=== PATIENT | female | born 1945 | race Caucasian/White ===

== ENCOUNTER → 2017-01-04 | Outpatient (CLI) | payer MEDICARE, OTHER ==
[~2017-01-04] MED LIST: ACET-732; AMIT50TA95 PO; CYCL-208 PO; DULO60CA25 PO; HYDR-7 PO; LEVO150T69 PO; LOSA1TAB56 PO; PANT40TA25 PO; PRAV40TA46 PO; [UNRECOGNIZED DRUG - CODE] PO; [UNRECOGNIZED DRUG - CODE] PO
--- NOTE | 2017-01-04 10:27 | DI ---
Indication: ITS.REASON: C50.111; G63; Z85.3; Z92.21; M54.5 LOW BACK PAIN PROCEDURE: US LIVER (HEPATIC): Encounter: Initial Comparison: None Technique: Grayscale and color Doppler sonographic imaging of the right upper quadrant of the abdomen was performed. Findings: Hepatic parenchyma is homogeneous without evidence for focal mass. The gallbladder is surgically absent. Both the intra and extrahepatic biliary system are of normal caliber with the common duct measuring 2 mm in dimension. Visualized portions of the head and body of the pancreas are unremarkable. The right kidney is present without collecting system dilatation. The right kidney measures 9.4 cm in length. Impression: Unremarkable right upper quadrant sonogram. .
--- NOTE | 2017-01-04 10:29 | DI ---
INDICATION: ITS.REASON: C50.111; G63; Z85.3; Z92.21; M54.5 LOW BACK PAIN PROCEDURE: CHEST 2-VIEWS UPRIGHT (PA \T\ LAT) Encounter: Initial COMPARISON: April 10, 2013 FINDINGS: The lungs are clear without evidence of focal abnormal airspace opacity. There is no pleural effusion or pneumothorax. Right mastectomy with surgical drain projecting over the right chest. The heart size, mediastinal contours and pulmonary vascularity are within normal limits. Degenerative change in the thoracolumbar spine. IMPRESSION: No acute cardiopulmonary disease. .
--- NOTE | 2017-01-04 15:16 | DI ---
Indication: ITS.REASON: C50.111; G63; Z85.3; Z92.21; M54.5 LOW BACK PAIN PROCEDURE: NM BONE SCAN, WHOLE BODY: Encounter: Subsequent Comparison: CT abdomen dated September 17, 2008 Technique: 27.1 mCi of Tc-99m MDP was administered intravenously. Anterior and posterior planar whole-body and spot images were obtained. FINDINGS: The scan demonstrates the expected normal biodistribution for the radiotracer. There is probable degenerative uptake seen in the shoulders, left midfoot and right ankle. There is no abnormal radiotracer uptake to suggest bony metastasis. Photopenic defects from bilateral knee replacements. IMPRESSION: No evidence of metastatic disease to the skeleton. .
== END ==
LOC: IMA 09:30
PROVIDERS: ATTEND Internal Medicine Medical Oncology
DX: C50.111 Malignant neoplasm of central portion of right female breast (principal); G63 Polyneuropathy in diseases classified elsewhere; M54.5 Low back pain; Z85.3 Personal history of malignant neoplasm of breast; Z92.21 Personal history of antineoplastic chemotherapy
CPT/HCPCS: 71020; 76705; 78306; A9503

== ENCOUNTER → 2017-02-23 | Outpatient (CLI) | payer MEDICARE, OTHER | LOC: IMA 10:30 | PROVIDERS: ATTEND Internal Medicine Medical Oncology | DX: M85.88 Other specified disorders of bone density and structure, other site (principal); C50.111 Malignant neoplasm of central portion of right female breast; E28.39 Other primary ovarian failure; E58 Dietary calcium deficiency; N95.8 Other specified menopausal and perimenopausal disorders; Z87.828 Personal history of other (healed) physical injury and trauma; Z90.722 Acquired absence of ovaries, bilateral ==

== ENCOUNTER 2017-04-29 12:40 | Inpatient (IN) ==
--- NOTE | 2017-04-29 13:35 | Emergency Department Report ---
General Adult HPI - General Chief complaint: Altered Mental Status Stated complaint: confussion Time Seen by Provider: 04/29/17 13:25 Source: patient, other (Facility Records) Limitations: no limitations - History of Present Illness HPI narrative: 71-year-old female presents to emergency department with a chief complaint of feeling like she was confused starting yesterday. Patient notes that the confusion has resolved prior to arrival to the emergency Department. Patient denies any pain or discomfort. While in the emergency department patient noted that her heart began to be quickly. Patient had an exacerbation of atrial fibrillation with RVR. Patient was also found to be hypotensive. She does not note any exacerbating or remitting factors. Patient has no other complaints or associated symptoms. Symptoms have been persistent in nature since onset as noted above. - Related Data Home Medications Medication Instructions Recorded Confirmed Duloxetine HCl [Cymbalta] 60 mg PO BID #0 02/03/11 04/29/17 Pregabalin [Lyrica] 300 mg PO BID #0 02/03/11 04/29/17 Pantoprazole Sodium [Protonix] 40 mg PO DAILY #0 08/25/12 04/29/17 Pravastatin Sodium 40 mg PO DAILY #0 08/25/12 04/29/17 Acetaminophen [Acetaminophen Extra 1,000 mg PO Q6H PRN 04/29/17 04/29/17 Strength] Amitriptyline [Elavil] 10 mg PO HS 04/29/17 04/29/17 Apixaban [Eliquis] 5 mg PO BID 04/29/17 04/29/17 Bisoprolol [Zebeta] 2.5 mg PO DAILY 04/29/17 04/29/17 Calcium 600 + D [Caltrate + D] 1 tab PO DAILY 04/29/17 04/29/17 Ergocalciferol (Vitamin D2) 2,000 unit PO DAILY 04/29/17 04/29/17 [Vitamin D2] Hydrocodone/APAP 7.5/325 [[place] 1 - 2 tab PO Q6H PRN 04/29/17 04/29/17 7.5/325] Iron Ps Cmplx/Vit B12/FA 1 cap PO DAILY 04/29/17 04/29/17 [Poly-Iron 150 Forte Capsule] Letrozole [Letrozole] 2.5 mg PO DAILY 04/29/17 04/29/17 Levothyroxine Sodium 125 mcg PO ACB 04/29/17 04/29/17 Lidocaine 1 patch TP DAILY PRN 04/29/17 04/29/17 Losartan/Hctz 50/12.5 [Hyzaar 1 tab PO DAILY 04/29/17 04/29/17 50/12.5] Methocarbamol [Robaxin] 750 mg PO TID PRN 04/29/17 04/29/17 Polyethylene Glycol 3350 [Miralax] 17 gm PO DAILY PRN 04/29/17 04/29/17 Allergies Allergy/AdvReac Type Severity Reaction Status Date / Time oxycodone Allergy Mild Itching Verified 04/29/17 13:41 tramadol Allergy Mild RASH Verified 04/29/17 13:41 adhesive Allergy Unknown Verified 04/29/17 13:41 levofloxacin Allergy Unknown Muscle Verified 04/29/17 13:41 Cramping morphine Allergy Unknown Itching Verified 04/29/17 13:41 Omnicef Allergy Unknown Itching Uncoded 12/11/16 10:26 Review of Systems Constitutional: Denies: fever, chills Eyes: Denies: eye pain, eye discharge, vision change ENT: Denies: ear pain, throat pain Cardiovascular: Denies: chest pain, palpitations Respiratory: Denies: cough, dyspnea Gastrointestinal: Denies: abdominal pain, nausea, vomiting, diarrhea Genitourinary: Denies: urgency, dysuria Musculoskeletal: Denies: back pain, arthralgia Integumentary: Denies: erythema, rash Neurological: Denies: headache, weakness, numbness, paresthesias Psychiatric: Denies: anxiety, depression Endocrine: Denies: fatigue, heat or cold intolerance Hematological/Lymphatic: Denies: easy bleeding, easy bruising Allergic/Immunologic: Denies: facial swelling, urticaria PFSH Patient Stated Medical History Other HEENT Yes: WEARS GLASSES Cardiac Arrhythmia Yes: AFIB Hypertension Yes Clotting Problems Yes: TAKES ELIQUIS Osteoarthritis Yes Blood Transfusions Yes Chemotherapy Yes Surgical History: General appendix, gallbladder, other. Reproductive/ hysterectomy. Joint knee Family History: [place] - Social History Smoking status: Never smoker Substance use type: does not use Alcohol intake frequency: does not drink Physical Exam - Limitations Limitations: no limitations - General General appearance: alert, in no apparent distress - Normal Exams: Head:: Normocephalic without trauma Eyes:: Pupils are PERRLA w/ EOMI, No scleral icterus, irritation, or foreign bodies noted ENMT:: No facial trauma, nasal exudates, pharyngeal erythema, or exudates are noted Dental: No fractured, loose, or missing teeth noted Neck:: Full range of motion, without adenopathy, JVD, bruits or thyromegaly Chest/Respirations:: Clear all canas, with good airflow, and symmetry bilaterally Cardiovascular:: Regular rate and rhythm, without murmur or gallop, Pulses 2+ all extremities, capillary refill, <2 seconds all extremities Abdomen:: Bowel sounds positive, soft, non-tender, non-distended, no hepatosplenomegaly, masses or bruits noted Lymphatic:: No lymphadenopathy, or lymphedema noted Musculoskeletal:: No tenderness, or deformity noted, good range of motion, all extremities Integumentary:: No rashes, hives, or bruising noted, hair and nails, without abnormality Neurological:: Patient is alert, and oriented, cranial nerves, motor/sensory/ cerebellar, exams w/o gross deficits, to observation Psychiatric:: Patient exhibits, appropriate attention, emotion and affect Course Vital Signs Blood Pressure 124/87 04/29/17 12:45 Temperature 99.1 F 04/29/17 16:09 Pulse Rate 98 04/29/17 16:30 Respiratory Rate 17 04/29/17 16:30 Blood Pressure 111/54 04/29/17 16:30 Pulse Oximetry 96 04/29/17 16:30 Medical Decision Making - MDM Narrative Medical decision making narrative: Patient is given 1 L of normal saline intravenously with improvement of symptoms. Patient is given digoxin 0.5 mg IV times one. Patient has improvement of heart rate to approximately 110 bpm. Patient is anticoagulated with Eliquis. Due to the hypotension and rapid heart rate patient is not taken for a CT scan of the head during this time in the emergency department. Patient has returned to baseline mental status and is not confused in the ER. 60 minutes of critical care time was assessed to the patient due to a heart rate greater than 160 bpm. Patient does meet SIRS criteria but no current source of infection is noted. Patient does not currently meet sepsis criteria due to no source being found. Azactam 1 g intravenously was ordered at 1451 when sepsis was considered. She is not able to receive 30 mL/kg of normal saline hydration intravenously. She is a DO NOT RESUSCITATE. She has an unknown ejection fraction. And she would need to receive greater than 4 L of fluid which would put the patient into respiratory failure with no backup such as endo-tracheal intubation. 4 L of normal saline would be detrimental to the patient's health. Patient is admitted to the CCU in improved condition. No further orders from consulting or accepting physicians who are in agreement with the current plan of management. Patient was accepted to the ICU by Dr. Valenzuela. - Differential Diagnosis Afib with RVR, Hypotension, Metabolic, UTI - Lab Data Result diagrams: 04/29/17 12:57 04/29/17 12:57 Lab Results 04/29/17 04/29/17 04/29/17 Range/Units 12:57 12:57 14:27 WBC 12.4 H (4.5-11.0) T/MM3 RBC 4.28 (4.00-5.20) M/MM3 Hgb 13.1 (12-16) GM/DL Hct 39.1 (36-46) % MCV 91.4 (80-100) UM3 MCH 30.6 (26-34) UUG MCHC 33.5 (31-37) GM/DL RDW Std Deviation 51.3 H (36.9-50.2) FL Plt Count 233 (130-400) T/MM3 MPV 11.4 (9.4-12.4) UM3 Immature Gran % (Auto) Not performed Neut % (Auto) Not performed Lymph % (Auto) Not performed [place] % (Auto) Not performed Eos % (Auto) Not performed Baso % (Auto) Not performed Neut # Not performed Lymph # Not performed [place] # Not performed Eos # Not performed Baso # Not performed Abs Immat Gran (auto) Not performed Neutrophils % (Manual) 78.0 H (33-66) % Band Neutrophils % 17.0 H (0-6) % Lymphocytes % (Manual) 4.0 L (23-45) % Monocytes % (Manual) 1.0 (0-9.0) % Neutrophils # (Manual) 9.7 H (1.8-7.7) T/MM3 Band Neutrophils # 2.1 T/MM3 Lymphocytes # (Manual) 0.5 L (1-4.8) T/MM3 Monocytes # (Manual) 0.1 (0-0.8) T/MM3 Toxic Granulation 1+ Anisocytosis 1+ RBC Morph Comment Abnormal Turbidity < 20 (0-20) Sodium 135 (134-144) MEQ/L Potassium 3.4 L (3.6-5) MEQ/L Chloride 95 L (98-107) MEQ/L Carbon Dioxide 28 (22-30) MEQ/L Anion Gap 12 (5-15) MEQ/L BUN 31.0 H (7-17) MG/DL Creatinine 2.1 H (0.7-1.2) MG/DL GFR Calculation 23 BUN/Creatinine Ratio 15 (6-26) RATIO Glucose 153 H (65-110) MG/DL Calculated Osmolality 270 (261-280) MOSM/KG Calcium 9.6 (8.4-10.2) MG/DL Magnesium (1.6-2.3) MG/DL Total Bilirubin 7.40 H (0.20-1.30) MG/DL Icterus Index 4 (0-7) AST 30 (14-36) U/L ALT 27 (9-52) U/L Alkaline Phosphatase 81 (38-126) U/L Troponin I 0.017 (0-0.12) ng/ml Total Protein 6.7 (6.3-8.2) G/DL Albumin 4.2 (3.5-5.0) G/DL Globulin 2.5 (2.4-3.6) G/DL Albumin/Globulin Ratio 1.7 (1.1-2.2) RATIO Plasma Lactate 1.7 (0.6-2.2) MMOL/L Procalcitonin NG/ML TSH (0.47-4.68) MIU/L Specimen Hemolysis < 15 (0-25) 04/29/17 04/29/17 Range/Units 14:27 14:27 WBC (4.5-11.0) T/MM3 RBC (4.00-5.20) M/MM3 Hgb (12-16) GM/DL Hct (36-46) % MCV (80-100) UM3 MCH (26-34) UUG MCHC (31-37) GM/DL RDW Std Deviation (36.9-50.2) FL Plt Count (130-400) T/MM3 MPV (9.4-12.4) UM3 Immature Gran % (Auto) Neut % (Auto) Lymph % (Auto) [place] % (Auto) Eos % (Auto) Baso % (Auto) Neut # Lymph # [place] # Eos # Baso # Abs Immat Gran (auto) Neutrophils % (Manual) (33-66) % Band Neutrophils % (0-6) % Lymphocytes % (Manual) (23-45) % Monocytes % (Manual) (0-9.0) % Neutrophils # (Manual) (1.8-7.7) T/MM3 Band Neutrophils # T/MM3 Lymphocytes # (Manual) (1-4.8) T/MM3 Monocytes # (Manual) (0-0.8) T/MM3 Toxic Granulation Anisocytosis RBC Morph Comment Turbidity (0-20) Sodium (134-144) MEQ/L Potassium (3.6-5) MEQ/L Chloride (98-107) MEQ/L Carbon Dioxide (22-30) MEQ/L Anion Gap (5-15) MEQ/L BUN (7-17) MG/DL Creatinine (0.7-1.2) MG/DL GFR Calculation BUN/Creatinine Ratio (6-26) RATIO Glucose (65-110) MG/DL Calculated Osmolality (261-280) MOSM/KG Calcium (8.4-10.2) MG/DL Magnesium 1.5 L (1.6-2.3) MG/DL Total Bilirubin (0.20-1.30) MG/DL Icterus Index (0-7) AST (14-36) U/L ALT (9-52) U/L Alkaline Phosphatase (38-126) U/L Troponin I (0-0.12) ng/ml Total Protein (6.3-8.2) G/DL Albumin (3.5-5.0) G/DL Globulin (2.4-3.6) G/DL Albumin/Globulin Ratio (1.1-2.2) RATIO Plasma Lactate (0.6-2.2) MMOL/L Procalcitonin 100.30 H* NG/ML TSH 1.53 (0.47-4.68) MIU/L Specimen Hemolysis (0-25) - Radiology Data CXR - Negative. - EKG Data EKG #1 EKG results narrative: Atrial fibrillation with rapid ventricular response. 147 bpm. No STEMI. Critical Care Time Critical Care Time: Yes Total Critical Care Time: 60 Attestation: 60 minutes of critical care time was assessed to the patient due to having a heart rate greater than 160 bpm. Patient required complex medical decision- making, repeated assessments at the bedside, and had potential for decompensation. Patient was admitted to the ICU in improved condition. Disposition Clinical Impression: HYPOTENSION, Atrial fibrillation with RVR Disposition: 02 To [facility] [place] Care Condition: Stable Time of Disposition: 14:30 (Admit. Dr. Roy. ) - Seen By: physician
[2017-04-29] MEDS: SALINE FLUSH 10ml SYRINGE IVF PRN ×3 (13:36→15:10)
[2017-04-29] MEDS ORDERED: DIGOXIN 500 MCG/2 ML INJECTION IVP ONE (13:59)
[2017-04-29] MEDS ORDERED: NS 1,000 ML IV ONE (14:02)
[2017-04-29] MEDS ORDERED: AZTREONAM 1 G in NS 100 ML IV ONE (14:51)
--- NOTE | 2017-04-29 14:54 | XRay Report ---
Indication: AMS PROCEDURE: XR chest 1V: Encounter: Initial Comparison: January 04, 2017 Findings: The lungs are stable in appearance without new focal airspace consolidation. There is no pleural effusion or pneumothorax. The heart size and mediastinal contours are unchanged. Prior right sided surgical drain is been removed. IMPRESSION: Stable appearance of the chest without acute cardiopulmonary disease. .
--- NOTE | 2017-04-29 15:53 | History & Physical Report ---
<RandiGila D - Last Filed: 04/29/17 16:08> History of Present Illness Date: 04/29/17 Chief complaint: confused, fever, sweating HPI: Kyung Morales reports that she began to have subjective fever, confusion, chills, sweating in the evening of 04/29/17. She saw her DrElpidio yesterday for results of a back MRI, but was actually feeling fairly well other than "severe" neck pain x2 days (now resolved). She has not had any recent chemo, but reports having cancer "twice". She states the confusion has resolved and she feels at baseline. No n/v/d, just shaking and weakness. She had dizziness/weakness earlier. No known sick exposures. No dysuria/urinary pain, dark-colored urine, frequency. No rashes, insect bites. No chest pain or palpitations. No dysphagia. States A-fib was discovered in early 2016 and she was started on Eliquis per Dr. Rc Wynne. She was evaluated in the ED, and was found to be in A-fib with RVR and was also hypotensive. She received 1L NS bolus and digoxin 500 mcg IV x1, which slowed her rate from 146 to 110. However, she remained hypotensive. Labs showed a PCT of 100 but normal lactate. WBC was 12.4 with a left shift (17% bands). CXR did not show obvious infiltrate. UA pending. Leung was inserted. She was given aztreonam for abx coverage and was admitted under the hospitalist service to inpatient status for treatment of both A. fib with RVR and severe sepsis. She will also need stabilization for abnormal hemodynamic vital signs. Review of Systems - Constitutional Constitutional: Present: chills, fever(s), lethargy, weakness - Musculoskeletal Musculoskeletal: Present: back pain - Neurological Neurological: Present: confusion, headache(s) - Psychiatric Psychiatric: Present: depression - Hematologic/Lymphatic Hematologic/Lymphatic: Present: easy bleeding, easy bruising PFSH Breast cancer Neuropathy - chemo induced Atrial fibrillation. Dr. Wynne recommends rate control and anticoagulation. Hypertension. Degenerative disc disease lumbar spine. Depression. Fibromyalgia. Hyperlipidemia. Obesity. Osteoarthritis. Osteoporosis. Hypothyroidism. Ulcers Surgical History: left lumpectomy 1999. right radical mastectomy 12/08/16. Colonoscopy 08/30/12. Distal radius fracture 2011. Total knee arthroplasty 2007. Appendectomy 1995. Cholecystectomy 1995. Hysterectomy 1995. Colonoscopy 1994 Family History: Strong FH for breast cancer Mother had breast cancer, diabetes, hypertension, obesity and stroke. Brother with colon cancer. Father had heart disease and hypertension. Sister with ovarian cancer and diabetes - Social History Smoking status: Never smoker Substance use type: does not use Medications Home Medications Medication Instructions Recorded Confirmed Type Duloxetine HCl [Cymbalta] 60 mg PO BID #0 02/03/11 04/29/17 History Pregabalin [Lyrica] 300 mg PO BID #0 02/03/11 04/29/17 History Pantoprazole Sodium [Protonix] 40 mg PO DAILY #0 08/25/12 04/29/17 History Pravastatin Sodium 40 mg PO DAILY #0 08/25/12 04/29/17 History Acetaminophen [Acetaminophen Extra 1,000 mg PO Q6H PRN 04/29/17 04/29/17 History Strength] Amitriptyline [Elavil] 10 mg PO HS 04/29/17 04/29/17 History Apixaban [Eliquis] 5 mg PO BID 04/29/17 04/29/17 History Bisoprolol [Zebeta] 2.5 mg PO DAILY 04/29/17 04/29/17 History Calcium 600 + D [Caltrate + D] 1 tab PO DAILY 04/29/17 04/29/17 History Ergocalciferol (Vitamin D2) 2,000 unit PO DAILY 04/29/17 04/29/17 History [Vitamin D2] Hydrocodone/APAP 7.5/325 [Ashley 1 - 2 tab PO Q6H PRN 04/29/17 04/29/17 History 7.5/325] Iron Ps Cmplx/Vit B12/FA 1 cap PO DAILY 04/29/17 04/29/17 History [Poly-Iron 150 Forte Capsule] Letrozole [Letrozole] 2.5 mg PO DAILY 04/29/17 04/29/17 History Levothyroxine Sodium 125 mcg PO ACB 04/29/17 04/29/17 History Lidocaine 1 patch TP DAILY PRN 04/29/17 04/29/17 History Losartan/Hctz 50/12.5 [Hyzaar 1 tab PO DAILY 04/29/17 04/29/17 History 50/12.5] Methocarbamol [Robaxin] 750 mg PO TID PRN 04/29/17 04/29/17 History Polyethylene Glycol 3350 [Miralax] 17 gm PO DAILY PRN 04/29/17 04/29/17 History Allergies Allergy/AdvReac Type Severity Reaction Status Date / Time oxycodone Allergy Mild Itching Verified 04/29/17 13:41 tramadol Allergy Mild RASH Verified 04/29/17 13:41 adhesive Allergy Unknown Verified 04/29/17 13:41 levofloxacin Allergy Unknown Muscle Verified 04/29/17 13:41 Cramping morphine Allergy Unknown Itching Verified 04/29/17 13:41 Omnicef Allergy Unknown Itching Uncoded 12/11/16 10:26 Exam Vital Signs: Temperature 99.8 F 04/29/17 12:46 Pulse Rate 110 H 04/29/17 14:30 Respiratory Rate 19 04/29/17 14:30 Blood Pressure 92/50 04/29/17 14:30 Pulse Oximetry 94 04/29/17 14:30 Telemetry Rhythm: A-fib with RVR Height: 1.63 m Weight: 136.5 kg - Constitutional Present: no acute distress, well nourished, well developed, obese - Routine HEENT Exam Eye: Present: conjunctival icterus (subtle) ENT: Present: mucous membranes dry - Routine Neck Exam Present: supple. Absent: meningismus - Routine Chest/Breast/Axilla Exam Breast: Present: right mastectomy - Routine Respiratory Exam Present: CTA bilaterally - Routine Abdominal Exam Present: soft, normoactive bowel sounds, non distended, non tender - Routine Extremities Exam Present: no edema, pulses intact - Routine Skin Exam Present: dry, pallor, warm - Routine Neurological Exam Present: alert, oriented X3, CN II-XII intact - Routine Psychiatric Exam Present: normal affect, normal thought process Results - Labs CBC & Chem 7: 04/29/17 12:57 04/29/17 12:57 Assessment and Plan (1) Atrial fibrillation with RVR Current visit: Yes Status: Acute (2) Hypotension Current visit: Yes Status: Acute (3) Severe sepsis Current visit: Yes Status: Acute (4) UTI (urinary tract infection) Current visit: Yes Status: Acute (5) SHELIA (acute kidney injury) Current visit: Yes Status: Acute (6) Hypokalemia Current visit: Yes Status: Acute (7) Hyperbilirubinemia Current visit: Yes Status: Acute (8) Hypomagnesemia Current visit: Yes Status: Acute DVT Prophylaxis: Eliquis GI Prophylaxis: Protonix Resuscitation Status: Do Not Resuscitate Assessment and Plan: Admit to inpatient status under the hospitalist service. Severe sepsis with hypotension -SIRS criteria include leukocytosis, bandemia, tachycardia, tachypnea -Severe sepsis criteria includes hypotension with mean arterial pressure in the 50s to 60s. She received 1 L of IV fluids in the ER. Will continue with normal saline at 150 mL per hour. Systolics in the CCU have improved to greater than 100, with a mean arterial pressure of 75. Hypotension, however, may also be secondary to A. fib with RVR, and not solely a sepsis response. -Aztreonam was given in ED. [facility] records indicate that Omnicef reaction causes itching and a "generalized bad feeling". Continue Aztreonam until cx comes back. -follow results of blood culture; repeat PCT in am -Hold antihypertensives and Robaxin A-fib with RVR -rates improved to 110s with IV digoxin -consult cardiology (Dr. Tolentino) -Echo in November 2016 showed an EF of 60%, mild mitral regurg, mild tricuspid regurg, pulmonic arterial systolic pressure at 35 mmHg. -continue Eliquis -check TSH SHELIA -baseline creatinine is 1.1 per clinic records -IVF; hold nephrotoxic agents -decrease dose of Eliquis to 2.5 mg BID -Aztreonam is dosed at 50% for CrCl of 30 or less (she's at 50) Hypokalemia; hypomagnesemia -replace orally -repeat electrolytes in am Hyperbilirubinemia -Tbili was 7.4 - baseline is 1.6 -LFTs otherwise normal -repeat in am Code status - DNR Hospital Course Summary Disclaimer: The visit summary below is not to be considered part of the above Progress Note. Hospital Course: 04/29/17 16:35 Admit to inpatient status under the hospitalist service. Severe sepsis with hypotension -SIRS criteria include leukocytosis, bandemia, tachycardia, tachypnea -Severe sepsis criteria includes hypotension with mean arterial pressure in the 50s to 60s. She received 1 L of IV fluids in the ER. Will continue with normal saline at 150 mL per hour. Systolics in the CCU have improved to greater than 100, with a mean arterial pressure of 75. Hypotension, however, may also be secondary to A. fib with RVR, and not solely a sepsis response. -Aztreonam was given in ED. [facility] records indicate that Omnicef reaction causes itching and a "generalized bad feeling". Continue Aztreonam until cx comes back. -follow results of blood culture; repeat PCT in am -Hold antihypertensives and Robaxin A-fib with RVR -rates improved to 110s with IV digoxin -consult cardiology (Dr. Tolentino) -Echo in November 2016 showed an EF of 60%, mild mitral regurg, mild tricuspid regurg, pulmonic arterial systolic pressure at 35 mmHg. -continue Eliquis -check TSH SHELIA -baseline creatinine is 1.1 per clinic records -IVF; hold nephrotoxic agents -decrease dose of Eliquis to 2.5 mg BID -Aztreonam is dosed at 50% for CrCl of 30 or less (she's at 50) Hypokalemia; hypomagnesemia -replace orally -repeat electrolytes in am Hyperbilirubinemia -Tbili was 7.4 - baseline is 1.6 -LFTs otherwise normal -repeat in am Code status - DNR <ShawnaDiana S - Last Filed: 04/29/17 17:42> History of Present Illness Date: 04/29/17 [facility] Patient Stated Medical History Other HEENT Yes: WEARS GLASSES Cardiac Arrhythmia Yes: AFIB Hypertension Yes Hx Urinary Tract Infection Yes: CURRENT Clotting Problems Yes: TAKES ELIQUIS Osteoarthritis Yes Anesthesia Reactions NO PROBLEMS Blood Transfusions Yes: NO REACTION Chemotherapy Yes Depression Yes Exam Vital Signs: Temperature 99.1 F 04/29/17 16:09 Pulse Rate 98 04/29/17 16:30 Respiratory Rate 17 04/29/17 16:30 Blood Pressure 111/54 04/29/17 16:30 Pulse Oximetry 96 04/29/17 16:30 Oxygen Delivery Method Nasal Cannula Oxygen Flow Rate 2 Height: 5 ft 4 in Weight: 136.5 kg Results - Labs CBC & Chem 7: 04/29/17 12:57 04/29/17 12:57 Microbiology Results: Microbiology 04/29/17 15:29 Urine, Cath Straight Urine Culture - Preliminary Culture Initiated - Results Pending Assessment and Plan (1) Atrial fibrillation with RVR Current visit: Yes Status: Acute (2) Hypotension Current visit: Yes Status: Acute (3) Severe sepsis Current visit: Yes Status: Acute (4) UTI (urinary tract infection) Current visit: Yes Status: Acute (5) Hypokalemia Current visit: Yes Status: Acute (6) Hyperbilirubinemia Current visit: Yes Status: Acute (7) SHELIA (acute kidney injury) Current visit: Yes Status: Acute (8) Hypomagnesemia Current visit: Yes Status: Acute Assessment and Plan: Patient seen and examined with Lucy Bryan NP. UTI likely etiology of current illness. Will treat with aztreonam until C+S comes back. Hospital Course Summary Disclaimer: The visit summary below is not to be considered part of the above Progress Note.
[2017-04-29] MEDS ORDERED: LIDOCAINE 5% PATCH TOP PRN (15:59)
[2017-04-29] MEDS: NS 1,000 ML IV SCH ×2 (16:19→22:39)
[2017-04-29] MEDS ORDERED: FALL RISK - PHARMACY CONSULT XX PRN (16:35)
--- NOTE | 2017-04-29 16:50 | Cardiology Consult Note ---
History of Present Illness Consult date: 04/29/17 <Bibiana Negrete 04/29/17 17:09> Requesting physician: Diana Matos <Bibiana Negrete 04/29/17 17:09> Consult reason: atrial fibrillation <Bibiana Negrete 04/29/17 17:09> Chief complaint: Confusion <Bibiana Negrete 04/29/17 17:09> History of present illness: Kyung Morales is a 71 year old female with a history of HTN and HLD who sees Dr. Rc Wynne with recently diagnosed A-fib, discovered in early 2017, she was started on Eliquis for stroke prevention and a BB for rate control. She was evaluated in the ED for subjective fever, confusion, chills, and sweating and was found to be in A-fib with RVR and was also hypotensive. She received 1L NS bolus and digoxin 500 mcg IV x1, which slowed her rate from 146 to 110. However, she remained hypotensive. No chest pain or palpitations. She states the confusion has resolved and she feels at baseline. No n/v/d, just shaking and weakness. She had dizziness/weakness earlier. No known sick exposures. She is examined in CCU. She is oriented and is drowsy. She denies chest pain, pressure, palpitations, her heart racing or pounding, or feeling skipped beats. She states she breathing is sometimes shallow but denies SOA. She reports reason for ED visit as confusion which began upon waking this morning. <Bibiana Negrete 04/29/17 17:09> Review of Systems - Constitutional Constitutional: Present: chills, fever(s), lethargy, weakness <Bibiana Negrete 04/29/17 17:09> - EENMT Eyes: Absent: change in vision <Bibiana Negrete 04/29/17 17:09> Balance: Absent: vertigo <Bibiana Negrete 04/29/17 17:09> Mouth/Throat: Absent: sore throat <Bibiana Negrete 04/29/17 17:09> - Cardiovascular Cardiovascular: Absent: chest pain, palpitations, syncope, dyspnea on exertion <Bibiana Negrete 04/29/17 17:09> Rhythm: Present: abnormal rhythm (a fib) <Bibiana Negrete 04/29/17 17:09> Vascular: Present: pedal edema <Bibiana Negrete 04/29/17 17:09> - Respiratory Respiratory: Absent: cough, dyspnea, wheezing <Bibiana Negrete 04/29/17 17:09 > - Gastrointestinal Gastrointestinal: Absent: diarrhea, nausea, vomiting <CadenBibiana Cooper 17:09> - Genitourinary Genitourinary: Absent: dysuria <Bibiana Negrete 04/29/17 17:09> - Musculoskeletal Musculoskeletal: Present: back pain <CadenBibiana Kenneth 04/29/17 17:09> - Integumentary/Breasts Integumentary: Absent: rash <CadenBibiana Cooper 04/29/17 17:09> - Neurological Neurological: Present: confusion, headache(s) <Caden,Amy Kenneth 04/29/17 17:09 > - Psychiatric Psychiatric: Present: depression <CadenBibiana Cooper 04/29/17 17:09> - Hematologic/Lymphatic Hematologic/Lymphatic: Present: easy bleeding, easy bruising <CadenBibiana Kenneth 04/29/17 17:09> PFS Patient Stated Medical History Other HEENT Yes: WEARS GLASSES Cardiac Arrhythmia Yes: AFIB Hypertension Yes Hx Urinary Tract Infection Yes: CURRENT Clotting Problems Yes: TAKES ELIQUIS Osteoarthritis Yes Anesthesia Reactions NO PROBLEMS Blood Transfusions Yes: NO REACTION Chemotherapy Yes Depression Yes <Rusty Tolentino - 05/05/17 11:38> Patient Stated Medical History Other HEENT Yes: WEARS GLASSES Cardiac Arrhythmia Yes: AFIB Hypertension Yes Hx Urinary Tract Infection Yes: CURRENT Clotting Problems Yes: TAKES ELIQUIS Osteoarthritis Yes Anesthesia Reactions NO PROBLEMS Blood Transfusions Yes: NO REACTION Chemotherapy Yes Depression Yes <Caden,Bibiana Cooper 04/29/17 17:09> Surgical History: left lumpectomy 1999. right radical mastectomy 12/08/16. Colonoscopy 08/30/12. Distal radius fracture 2012. Total knee arthroplasty 2007. Appendectomy 1995. Cholecystectomy 1995. Hysterectomy 1995. Colonoscopy 1994 <Bibiana Negrete Kenneth 04/29/17 17:09> - Social History Smoking status: Never smoker <Bibiana Negrete M - 04/29/17 17:09> Medications Home Medications Medication Instructions Recorded Confirmed Type Duloxetine HCl [Cymbalta] 60 mg PO BID #0 02/03/11 05/04/17 History Pregabalin [Lyrica] 300 mg PO BID #0 02/03/11 05/04/17 History Pantoprazole Sodium [Protonix] 40 mg PO DAILY #0 08/25/12 05/04/17 History Pravastatin Sodium 40 mg PO DAILY #0 08/25/12 05/04/17 History Calcium 600 + D [Caltrate + D] 1 tab PO DAILY 04/29/17 05/04/17 History Ergocalciferol (Vitamin D2) 2,000 unit PO DAILY 04/29/17 05/04/17 History [Vitamin D2] Hydrocodone/APAP 7.5/325 [[place] 1 - 2 tab PO Q6H PRN 04/29/17 05/04/17 History 7.5/325] Iron Ps Cmplx/Vit B12/FA 1 cap PO DAILY 04/29/17 05/04/17 History [Poly-Iron 150 Forte Capsule] Levothyroxine Sodium 125 mcg PO ACB 04/29/17 05/04/17 History Lidocaine 1 patch TP DAILY PRN 04/29/17 05/04/17 History Polyethylene Glycol 3350 [Miralax] 17 gm PO DAILY PRN 04/29/17 05/04/17 History <Rusty Tolentino - 05/05/17 11:38> Allergies Allergy/AdvReac Type Severity Reaction Status Date / Time oxycodone Allergy Mild Itching Verified 05/04/17 14:45 tramadol Allergy Mild RASH Verified 05/04/17 14:45 adhesive Allergy Unknown Verified 05/04/17 14:45 levofloxacin Allergy Unknown Muscle Verified 05/04/17 14:45 Cramping morphine Allergy Unknown Itching Verified 05/04/17 14:45 Omnicef Allergy Unknown Itching Uncoded 05/04/17 14:45 <Rusty Tolentino - 05/05/17 11:38> Exam Vital signs: Temperature 97.3 F 05/04/17 07:34 Pulse Rate 84 05/04/17 07:34 Respiratory Rate 16 05/04/17 07:34 Blood Pressure 141/89 H 05/04/17 07:34 Pulse Oximetry 98 05/04/17 07:34 Oxygen Delivery Method Nasal Cannula Oxygen Flow Rate 2 <Rusty Tolentino - 05/05/17 11:38> Temperature 99.1 F 04/29/17 16:09 Pulse Rate 98 04/29/17 16:30 Respiratory Rate 17 04/29/17 16:30 Blood Pressure 111/54 04/29/17 16:30 Pulse Oximetry 96 04/29/17 16:30 Oxygen Delivery Method Nasal Cannula Oxygen Flow Rate 2 <Bibiana Negrete - 04/29/17 17:09> - Constitutional no acute distress, morbidly obese, cooperative <Bibiana Negrete 04/29/17 17: 09> - Routine Neck Exam Absent: JVD, carotid bruit <Bibiana Negrete 04/29/17 18:49> - Routine Chest/Breast/Axilla Exam Chest wall: Absent: tenderness <CadenBibiana Cooper 04/29/17 18:49> - Routine Respiratory Exam Present: CTA bilaterally, diminished air movement. Absent: rales <Bibiana Negrete 04/29/17 18:49> - Routine Cardiovascular Exam Present: no murmur, irregular rhythm. Absent: JVD <Bibiana Negrete 04/29/17 18:49> - Routine Abdominal Exam Present: soft, normoactive bowel sounds <Bibiana Negrete 04/29/17 17:09> - Routine Extremities Exam Absent: no edema <Bibiana Negrete 04/29/17 18:49> - Routine Skin Exam Present: intact <Bibiana Negrete 04/29/17 17:09> - Routine Neurological Exam Present: alert, oriented X3 <Bibiana Negrete 04/29/17 17:09> - Routine Psychiatric Exam Present: normal affect, normal thought process <Bibiana Negrete 04/29/17 17: 09> Results 05/04/17 04:47 05/04/17 04:47 <Nely Tolentinosein - 05/05/17 11:38> Intake and Output 04/29/17 04/29/17 04/29/17 06:59 14:59 22:59 Intake Total 36.667 / 36.667 Output Total 50 / 50 Balance -13.333 / -13.333 Intake: IV 36.667 / 36.667 Azactam 1 G In Normal 36.667 / 36.667 Saline 100 ml @ 100 mls/ hr IV O ONE Rx#:[id number] Output: Urine Amount (Catheter) 50 / 50 Laboratory Results - last 48 hr 04/29/17 04/29/17 04/29/17 12:57 12:57 14:27 WBC 12.4 H RBC 4.28 Hgb 13.1 Hct 39.1 MCV 91.4 MCH 30.6 MCHC 33.5 RDW Std Deviation 51.3 H Plt Count 233 MPV 11.4 Immature Gran % (Auto) Not performed Neut % (Auto) Not performed Lymph % (Auto) Not performed [place] % (Auto) Not performed Eos % (Auto) Not performed Baso % (Auto) Not performed Neut # Not performed Lymph # Not performed [place] # Not performed Eos # Not performed Baso # Not performed Abs Immat Gran (auto) Not performed Neutrophils % (Manual) 78.0 H Band Neutrophils % 17.0 H Lymphocytes % (Manual) 4.0 L Monocytes % (Manual) 1.0 Neutrophils # (Manual) 9.7 H Band Neutrophils # 2.1 Lymphocytes # (Manual) 0.5 L Monocytes # (Manual) 0.1 Toxic Granulation 1+ Anisocytosis 1+ RBC Morph Comment Abnormal Turbidity < 20 Sodium 135 Potassium 3.4 L Chloride 95 L Carbon Dioxide 28 Anion Gap 12 BUN 31.0 H Creatinine 2.1 H GFR Calculation 23 BUN/Creatinine Ratio 15 Glucose 153 H Calculated Osmolality 270 Calcium 9.6 Magnesium Total Bilirubin 7.40 H Icterus Index 4 AST 30 ALT 27 Alkaline Phosphatase 81 Troponin I 0.017 Total Protein 6.7 Albumin 4.2 Globulin 2.5 Albumin/Globulin Ratio 1.7 Plasma Lactate 1.7 Procalcitonin TSH Specimen Hemolysis < 15 Ur Collection Type Urine Color Urine Clarity Urine pH Ur Specific [place] Urine Protein Urine Glucose (UA) Urine Ketones Urine Occult Blood Urine Nitrate Urine Bilirubin Urine Urobilinogen Ur Leukocyte Esterase Urine RBC Urine WBC Urine WBC Clumps Ur Squamous Epith Cells Urine Bacteria Ur Culture Indicated? 04/29/17 04/29/17 04/29/17 14:27 14:27 15:29 WBC RBC Hgb Hct MCV MCH MCHC RDW Std Deviation Plt Count MPV Immature Gran % (Auto) Neut % (Auto) Lymph % (Auto) [place] % (Auto) Eos % (Auto) Baso % (Auto) Neut # Lymph # [place] # Eos # Baso # Abs Immat Gran (auto) Neutrophils % (Manual) Band Neutrophils % Lymphocytes % (Manual) Monocytes % (Manual) Neutrophils # (Manual) Band Neutrophils # Lymphocytes # (Manual) Monocytes # (Manual) Toxic Granulation Anisocytosis RBC Morph Comment Turbidity Sodium Potassium Chloride Carbon Dioxide Anion Gap BUN Creatinine GFR Calculation BUN/Creatinine Ratio Glucose Calculated Osmolality Calcium Magnesium 1.5 L Total Bilirubin Icterus Index AST ALT Alkaline Phosphatase Troponin I Total Protein Albumin Globulin Albumin/Globulin Ratio Plasma Lactate Procalcitonin 100.30 H* TSH 1.53 Specimen Hemolysis Ur Collection Type Urine, catheter Urine Color Yellow Urine Clarity Sl cloudy Urine pH 6.0 Ur Specific [place] 1.015 Urine Protein 2+ A Urine Glucose (UA) Negative Urine Ketones Negative Urine Occult Blood 3+ A Urine Nitrate Negative Urine Bilirubin Negative Urine Urobilinogen 0.2 Ur Leukocyte Esterase 2+ A Urine RBC 30-50 H Urine WBC 20-30 H Urine WBC Clumps Few Ur Squamous Epith Cells 0-5 Urine Bacteria 3+ H Ur Culture Indicated? Cult reflexed &setup <Bibiana Negrete M - 04/29/17 18:49> - Imaging and Cardiology Imaging & Cardiology Narrative: 04/29/17 17:08 Laboratory Results - last 48 hr 04/29/17 04/29/17 04/29/17 12:57 12:57 14:27 WBC 12.4 H RBC 4.28 Hgb 13.1 Hct 39.1 MCV 91.4 MCH 30.6 MCHC 33.5 RDW Std Deviation 51.3 H Plt Count 233 MPV 11.4 Immature Gran % (Auto) Not performed Neut % (Auto) Not performed Lymph % (Auto) Not performed [place] % (Auto) Not performed Eos % (Auto) Not performed Baso % (Auto) Not performed Neut # Not performed Lymph # Not performed [place] # Not performed Eos # Not performed Baso # Not performed Abs Immat Gran (auto) Not performed Neutrophils % (Manual) 78.0 H Band Neutrophils % 17.0 H Lymphocytes % (Manual) 4.0 L Monocytes % (Manual) 1.0 Neutrophils # (Manual) 9.7 H Band Neutrophils # 2.1 Lymphocytes # (Manual) 0.5 L Monocytes # (Manual) 0.1 Toxic Granulation 1+ Anisocytosis 1+ RBC Morph Comment Abnormal Turbidity < 20 Sodium 135 Potassium 3.4 L Chloride 95 L Carbon Dioxide 28 Anion Gap 12 BUN 31.0 H Creatinine 2.1 H GFR Calculation 23 BUN/Creatinine Ratio 15 Glucose 153 H Calculated Osmolality 270 Calcium 9.6 Magnesium Total Bilirubin 7.40 H Icterus Index 4 AST 30 ALT 27 Alkaline Phosphatase 81 Troponin I 0.017 Total Protein 6.7 Albumin 4.2 Globulin 2.5 Albumin/Globulin Ratio 1.7 Plasma Lactate 1.7 Procalcitonin TSH Specimen Hemolysis < 15 Ur Collection Type Urine Color Urine Clarity Urine pH Ur Specific [place] Urine Protein Urine Glucose (UA) Urine Ketones Urine Occult Blood Urine Nitrate Urine Bilirubin Urine Urobilinogen Ur Leukocyte Esterase Urine RBC Urine WBC Urine WBC Clumps Ur Squamous Epith Cells Urine Bacteria Ur Culture Indicated? 04/29/17 04/29/17 04/29/17 14:27 14:27 15:29 WBC RBC Hgb Hct MCV MCH MCHC RDW Std Deviation Plt Count MPV Immature Gran % (Auto) Neut % (Auto) Lymph % (Auto) [place] % (Auto) Eos % (Auto) Baso % (Auto) Neut # Lymph # [place] # Eos # Baso # Abs Immat Gran (auto) Neutrophils % (Manual) Band Neutrophils % Lymphocytes % (Manual) Monocytes % (Manual) Neutrophils # (Manual) Band Neutrophils # Lymphocytes # (Manual) Monocytes # (Manual) Toxic Granulation Anisocytosis RBC Morph Comment Turbidity Sodium Potassium Chloride Carbon Dioxide Anion Gap BUN Creatinine GFR Calculation BUN/Creatinine Ratio Glucose Calculated Osmolality Calcium Magnesium 1.5 L Total Bilirubin Icterus Index AST ALT Alkaline Phosphatase Troponin I Total Protein Albumin Globulin Albumin/Globulin Ratio Plasma Lactate Procalcitonin 100.30 H* TSH 1.53 Specimen Hemolysis Ur Collection Type Urine, catheter Urine Color Yellow Urine Clarity Sl cloudy Urine pH 6.0 Ur Specific [place] 1.015 Urine Protein 2+ A Urine Glucose (UA) Negative Urine Ketones Negative Urine Occult Blood 3+ A Urine Nitrate Negative Urine Bilirubin Negative Urine Urobilinogen 0.2 Ur Leukocyte Esterase 2+ A Urine RBC 30-50 H Urine WBC 20-30 H Urine WBC Clumps Few Ur Squamous Epith Cells 0-5 Urine Bacteria 3+ H Ur Culture Indicated? Cult reflexed &setup 04/29/17 18:47 Date of Exam: 04/29/17 Ordering Provider: Schuster,Justin C DO Type of Exam(s): XR chest 1V Reason for Exam(s): AMS Indication: AMS PROCEDURE: XR chest 1V: Encounter: Initial Comparison: January 04, 2017 Findings: The lungs are stable in appearance without new focal airspace consolidation. There is no pleural effusion or pneumothorax. The heart size and mediastinal contours are unchanged. Prior right sided surgical drain is been removed. IMPRESSION: Stable appearance of the chest without acute cardiopulmonary disease. <Bibiana Negrete - 04/29/17 18:49> EKG interpretations - EKG EKG shows: atrial fibrillation (RVR, HR 147) <Bibiana Negrete 04/29/17 17:09> - Blocks, axis, hypertrophy, ST abn Repolarization changes or abnormalities: nonspecific abnormality, ST segment, and/or T wave <Bibiana Negrete - 04/29/17 17:09> Assessment and Plan (1) Atrial fibrillation with RVR Status: Chronic (2) Severe sepsis Status: Resolved (3) Hypokalemia Status: Resolved (4) SHELIA (acute kidney injury) Status: Resolved (5) Hypomagnesemia Status: Resolved <Rusty Tolentino - 05/05/17 11:38> (1) Atrial fibrillation with RVR Status: Resolved Start Metoprolol 25mg BID which should do more for rate control than the BP, Hold Bisoprolol. Echo ordered, report pending. (2) SHELIA (acute kidney injury) Status: Acute (3) Severe sepsis Status: Acute (4) Hypokalemia Status: Resolved (5) Hypomagnesemia Status: Resolved replace Magnesium with 2 grams IV <Bibiana Negrete - 04/30/17 15:26> - Attestation Attestation Narrative: 05/05/17 11:38 Recommendation After examining the patient I agree with the above assessment. I am involved in the formulation of the patient's plan of care. <Rusty Tolentino 05/05/17 11:38> Hospital Course Summary Disclaimer: The visit summary below is not to be considered part of the above Progress Note. <Rusty Tolentino - 05/05/17 11:38> The visit summary below is not to be considered part of the above Progress Note. <Bibiana Negrete - 04/29/17 17:09> Hospital Course: 04/29/17 16:35 Admit to inpatient status under the hospitalist service. Severe sepsis with hypotension -SIRS criteria include leukocytosis, bandemia, tachycardia, tachypnea -Severe sepsis criteria includes hypotension with mean arterial pressure in the 50s to 60s. She received 1 L of IV fluids in the ER. Will continue with normal saline at 150 mL per hour. Systolics in the CCU have improved to greater than 100, with a mean arterial pressure of 75. Hypotension, however, may also be secondary to A. fib with RVR, and not solely a sepsis response. -Aztreonam was given in ED. [facility] records indicate that Omnicef reaction causes itching and a "generalized bad feeling". Continue Aztreonam until cx comes back. -follow results of blood culture; repeat PCT in am -Hold antihypertensives and Robaxin A-fib with RVR -rates improved to 110s with IV digoxin -consult cardiology (Dr. Tolentino) -Echo in November 2016 showed an EF of 60%, mild mitral regurg, mild tricuspid regurg, pulmonic arterial systolic pressure at 35 mmHg. -continue Eliquis -check TSH SHELIA -baseline creatinine is 1.1 per clinic records -IVF; hold nephrotoxic agents -decrease dose of Eliquis to 2.5 mg BID -Aztreonam is dosed at 50% for CrCl of 30 or less (she's at 50) Hypokalemia; hypomagnesemia -replace orally -repeat electrolytes in am Hyperbilirubinemia -Tbili was 7.4 - baseline is 1.6 -LFTs otherwise normal -repeat in am Code status - DNR <Bibiana Negrete - 04/30/17 15:32>
[2017-04-29] MEDS: AZTREONAM 1 G in NS 100 ML IV SCH ×2 (17:10→21:35)
[2017-04-29] MEDS: MAGNESIUM SULFATE 1gm PREMIX 1 GM/100 ML BAG IV SCH ×2 (17:16→18:33)
[2017-04-29] MEDS: MAGNESIUM OXIDE 400 MG TABLET PO SCH (17:18)
[2017-04-29] MEDS: PREGABALIN 150 MG CAPSULE PO SCH (20:17)
[2017-04-29] MEDS: DULOXETINE 60 MG CAPSULE PO SCH (20:17)
[2017-04-29] MEDS: AMITRIPTYLINE 10 MG TABLET PO SCH ×2 (20:18→21:06)
[2017-04-29] MEDS: APIXABAN 5 MG TABLET PO SCH (20:18)
[2017-04-29] MEDS: PRAVASTATIN 40 MG TABLET PO SCH ×2 (20:18→21:06)
[2017-04-29] MEDS ORDERED: APIXABAN 5 MG TABLET PO SCH (21:00)
[2017-04-29 21:49] VITALS: BMI 50.5
[2017-04-29] MEDS ORDERED: METOPROLOL 5mg/5ml INJECTION IVP ONE (22:25)
[2017-04-30] MEDS: NS 1,000 ML IV SCH ×4 (00:10→17:40)
[2017-04-30] MEDS: AZTREONAM 1 G in NS 100 ML IV SCH ×4 (04:56→23:10)
[2017-04-30] MEDS: PANTOPRAZOLE 40 MG TABLET PO SCH (06:19)
[2017-04-30] MEDS: LEVOTHYROXINE 125 MCG TABLET PO SCH (06:19)
[2017-04-30] MEDS: PREGABALIN 150 MG CAPSULE PO SCH ×2 (08:28→21:07)
[2017-04-30] MEDS: DULOXETINE 60 MG CAPSULE PO SCH ×2 (08:29→21:07)
[2017-04-30] MEDS: CALCIUM 600 + VIT D 400 TABLET PO SCH (08:29)
[2017-04-30] MEDS: APIXABAN 5 MG TABLET PO SCH ×2 (08:29→21:07)
[2017-04-30] MEDS: MAGNESIUM OXIDE 400 MG TABLET PO SCH (08:29)
[2017-04-30] MEDS: NIFEREX FORTE 150 CAPSULE PO SCH (08:29)
--- NOTE | 2017-04-30 13:00 | Progress Note ---
Subjective: Feels better today. No events overnight. Blood pressure improved. Cardiology input appreciated. Objective Vital signs: Temperature 97.1 F 04/30/17 08:00 Pulse Rate 96 04/30/17 12:00 Respiratory Rate 39 H 04/30/17 12:00 Blood Pressure 142/65 H 04/30/17 12:00 Pulse Oximetry 93 04/30/17 12:00 Oxygen Delivery Method Room Air Oxygen Flow Rate 2 General-awake alert oriented 3, in no acute distress Cardiovascular-regular rate and rhythm Lungs-clear auscultation bilaterally Abdomen-benign Extremities-no edema cyanosis or clubbing Neurological-nonfocal Weight: 135.2 kg Results - Labs CBC & Chem 7: 04/30/17 05:40 04/30/17 05:40 Microbiology Results: Microbiology 04/29/17 15:29 Urine, Cath Straight Urine Culture - Preliminary Escherichia coli Assessment and Plan (1) Atrial fibrillation with RVR Current visit: Yes Status: Resolved Per cardiology. 04/30/17 13:01 (2) Hypotension Current visit: Yes Status: Resolved Continue volume resuscitation. 04/30/17 13:01 (3) Severe sepsis Current visit: Yes Status: Acute Improving. Secondary to Escherichia coli urinary tract infection and bacteremia. We'll continue with current antibiotics. 04/30/17 13:01 (4) UTI (urinary tract infection) Current visit: Yes Status: Acute Escherichia coli. Continue aztreonam. 04/30/17 13:02 (5) Hypokalemia Current visit: Yes Status: Resolved (6) Hyperbilirubinemia Current visit: Yes Status: Acute Improving. Most likely secondary to volume depletion. We'll continue to monitor. 04/30/17 13:02 (7) SHELIA (acute kidney injury) Current visit: Yes Status: Acute Getting worse. We'll continue to hold nephrotoxic agents. We'll continue volume resuscitation. 04/30/17 13:02 (8) Hypomagnesemia Current visit: Yes Status: Resolved Sepsis Assessment - Evaluation Sepsis screening result: Severe Sepsis Risk Hospital Course Summary Disclaimer: The visit summary below is not to be considered part of the above Progress Note. Hospital Course: 04/29/17 16:35 Admit to inpatient status under the hospitalist service. Severe sepsis with hypotension -SIRS criteria include leukocytosis, bandemia, tachycardia, tachypnea -Severe sepsis criteria includes hypotension with mean arterial pressure in the 50s to 60s. She received 1 L of IV fluids in the ER. Will continue with normal saline at 150 mL per hour. Systolics in the CCU have improved to greater than 100, with a mean arterial pressure of 75. Hypotension, however, may also be secondary to A. fib with RVR, and not solely a sepsis response. -Aztreonam was given in ED. [facility] records indicate that Omnicef reaction causes itching and a "generalized bad feeling". Continue Aztreonam until cx comes back. -follow results of blood culture; repeat PCT in am -Hold antihypertensives and Robaxin A-fib with RVR -rates improved to 110s with IV digoxin -consult cardiology (Dr. Tolentino) -Echo in November 2016 showed an EF of 60%, mild mitral regurg, mild tricuspid regurg, pulmonic arterial systolic pressure at 35 mmHg. -continue Eliquis -check TSH SHELIA -baseline creatinine is 1.1 per clinic records -IVF; hold nephrotoxic agents -decrease dose of Eliquis to 2.5 mg BID -Aztreonam is dosed at 50% for CrCl of 30 or less (she's at 50) Hypokalemia; hypomagnesemia -replace orally -repeat electrolytes in am Hyperbilirubinemia -Tbili was 7.4 - baseline is 1.6 -LFTs otherwise normal -repeat in am Code status - DNR
--- NOTE | 2017-04-30 15:36 | Cardiology Progress Note ---
Subjective Principal diagnosis: Afib RVR <Bibiana Negrete - 04/30/17 15:45> Interval history: Kyung is seen in CCU, she is sitting up in the recliner. She is drowsy but oriented. She denies chest pain or pressure, palpitations or dyspnea. <Bibiana Negrete - 04/30/17 15:45> Exam Vital signs: Temperature 97.3 F 05/04/17 07:34 Pulse Rate 84 05/04/17 07:34 Respiratory Rate 16 05/04/17 07:34 Blood Pressure 141/89 H 05/04/17 07:34 Pulse Oximetry 98 05/04/17 07:34 Oxygen Delivery Method Nasal Cannula Oxygen Flow Rate 2 <Rusty Tolentino - 05/05/17 11:42> Temperature 97.1 F 04/30/17 08:00 Pulse Rate 96 04/30/17 12:00 Respiratory Rate 39 H 04/30/17 12:00 Blood Pressure 142/65 H 04/30/17 12:00 Pulse Oximetry 93 04/30/17 12:00 Oxygen Delivery Method Room Air Oxygen Flow Rate 2 <Bibiana Negrete - 04/30/17 15:45> - Constitutional no acute distress, obese, cooperative <Bibiana Negrete 04/30/17 15:45> - Routine HEENT Exam ENT: Present: mucous membranes moist <Bibiana Negrete 04/30/17 15:45> - Routine Neck Exam Absent: JVD, carotid bruit <Bibiana Negrete 04/30/17 15:45> - Routine Respiratory Exam Present: CTA bilaterally. Absent: rales, wheezes <Bibiana Negrete 04/30/17 15:45> - Routine Cardiovascular Exam Present: no murmur. Absent: irregular rhythm, JVD <Bibiana Negrete 04/30/17 15:45> - Routine Abdominal Exam Present: soft, normoactive bowel sounds <CadenBibiana Kenneth 04/30/17 15:45> - Routine Extremities Exam Present: no edema <CadenBibiana Cooper 04/30/17 15:45> - Routine Skin Exam Present: intact <CadenBibiana Kenneth 04/30/17 15:45> - Routine Neurological Exam Present: alert, oriented X3 <Bibiana Negrete 04/30/17 15:45> - Routine Psychiatric Exam Present: normal affect, normal thought process <Bibiana Negrete 04/30/17 15: 45> - Urinary Catheter Management Straight Cath placed during this visit: no <Rusty Tolentino - 05/05/17 11:42> yes <Bibiana Negrete 05/03/17 10:43> Urethral indwelling: Yes <Bibiana Negrete 05/03/17 10:43> Reason for continuing: Accurate I&O/Aggressive Diuresis <Bibiana Negrete 10:43> Insertion date: 05/03/17 <Bibiana Negrete 05/03/17 10:43> Insertion time: 01:25 <Bibiana Negrete 05/03/17 10:43> Urethral Cath placed during this visit: no <Rusty Tolentino - 05/05/17 11:42> yes <Bibiana Negrete 05/03/17 10:43> Urethral indwelling: Yes <Bibiana Negrete 05/03/17 10:43> Reason for continuing: Accurate I&O/Aggressive Diuresis <Bibiana Negrete 10:43> Insertion date: 04/29/17 <Bibiana Negrete 04/30/17 15:45> Insertion time: 15:20 <Bibiana Negrete 04/30/17 15:45> Hospital Course This is a general summary of the patient's hospital course. For more details refer to the complete medical record. <Rusty Tolentino - 05/05/17 11:42> This is a general summary of the patient's hospital course. For more details refer to the complete medical record. <Bibiana Negrete 04/30/17 15:45> Hospital course: 04/29/17 16:35 Admit to inpatient status under the hospitalist service. Severe sepsis with hypotension -SIRS criteria include leukocytosis, bandemia, tachycardia, tachypnea -Severe sepsis criteria includes hypotension with mean arterial pressure in the 50s to 60s. She received 1 L of IV fluids in the ER. Will continue with normal saline at 150 mL per hour. Systolics in the CCU have improved to greater than 100, with a mean arterial pressure of 75. Hypotension, however, may also be secondary to A. fib with RVR, and not solely a sepsis response. -Aztreonam was given in ED. [facility] records indicate that Omnicef reaction causes itching and a "generalized bad feeling". Continue Aztreonam until cx comes back. -follow results of blood culture; repeat PCT in am -Hold antihypertensives and Robaxin A-fib with RVR -rates improved to 110s with IV digoxin -consult cardiology (Dr. Tolentino) -Echo in November 2016 showed an EF of 60%, mild mitral regurg, mild tricuspid regurg, pulmonic arterial systolic pressure at 35 mmHg. -continue Eliquis -check TSH SHELIA -baseline creatinine is 1.1 per clinic records -IVF; hold nephrotoxic agents -decrease dose of Eliquis to 2.5 mg BID -Aztreonam is dosed at 50% for CrCl of 30 or less (she's at 50) Hypokalemia; hypomagnesemia -replace orally -repeat electrolytes in am Hyperbilirubinemia -Tbili was 7.4 - baseline is 1.6 -LFTs otherwise normal -repeat in am Code status - DNR 04/29/17 Cardiology Afib: Start Metoprolol 25mg BID which should do more for rate control than the BP, Hold Bisoprolol. Echo ordered, report pending. Takes Eliquis 2.5mg for stroke prevention. Hypomagnesemia: replace Magnesium with 2 grams IV 04/30/17 Cardiology Increase Metoprolol to 50mg BID <Bibiana Negrete - 05/03/17 10:43> Progress Note-A&P (1) Atrial fibrillation with RVR Status: Chronic (2) Severe sepsis Status: Resolved (3) Hypokalemia Status: Resolved (4) SHELIA (acute kidney injury) Status: Resolved (5) Hypomagnesemia Status: Resolved <Rusty Tolentino - 05/05/17 11:42> (1) Atrial fibrillation with RVR Status: Chronic Assessment and plan: Rate improved, still over 100 most of the time. Increase Metoprolol to 50mg bid. (2) SHELIA (acute kidney injury) Status: Resolved (3) Severe sepsis Status: Resolved (4) Hypokalemia Status: Resolved (5) Hypomagnesemia Status: Resolved <Bibiana Negrete - 05/03/17 10:42> - Time Spent With Patient Total time spent is greater than 50% in coordination of care (as documented) at patient's floor/unit and/or counseling patient: <Rusty Tolentino - 05/05/17 11:42> Total time spent is greater than 50% in coordination of care (as documented) at patient's floor/unit and/or counseling patient: <Bibiana Negrete - 04/30/17 15:45> less than 15 minutes <Bibiana Negrete 05/03/17 10:43> - Attestation Attestation Narrative: Recommendation After examining the patient I agree with the above assessment. I am involved in the formulation of the patient's plan of care. <Rusty Tolentino - 05/05/17 11:42> Sepsis Assessment - Evaluation Sepsis screening result: No Definite Risk <Bibiana Negrete - 04/30/17 15:45>
[2017-04-30] MEDS: HYDROCODONE/APAP 7.5 MG/325 MG TABLET PO PRN (17:40)
[2017-04-30] MEDS: PRAVASTATIN 40 MG TABLET PO SCH (21:07)
[2017-04-30] MEDS: AMITRIPTYLINE 10 MG TABLET PO SCH (21:10)
[2017-05-01] MEDS: NS 1,000 ML IV SCH ×5 (01:41→22:35)
[2017-05-01] MEDS: AZTREONAM 1 G in NS 100 ML IV SCH ×4 (04:38→23:20)
[2017-05-01] MEDS: PANTOPRAZOLE 40 MG TABLET PO SCH ×2 (05:28→05:31)
[2017-05-01] MEDS: LEVOTHYROXINE 125 MCG TABLET PO SCH ×2 (05:28→05:31)
[2017-05-01] MEDS: ACETAMINOPHEN 500 MG TABLET PO PRN (05:37)
--- NOTE | 2017-05-01 08:34 | Progress Note ---
Subjective: Feeling much better. No events overnight. Denies any chest pain, nausea or vomiting. No fevers overnight. Was fairly rate controlled. Objective Vital signs: Temperature 99.0 F 05/01/17 07:45 Pulse Rate 99 05/01/17 08:01 Respiratory Rate 40 H 05/01/17 08:01 Blood Pressure 152/68 H 05/01/17 08:01 Pulse Oximetry 99 05/01/17 08:01 Oxygen Delivery Method Nasal Cannula Oxygen Flow Rate 1 General-awake alert oriented 3, in no acute distress CV-Irregularly irregular Lungs-clear auscultation bilaterally Abdomen-benign Extremities-no edema cyanosis or clubbing Neurological-nonfocal Weight: 135.2 kg Results - Labs CBC & Chem 7: 05/01/17 05:28 05/01/17 05:28 Microbiology Results: Microbiology 04/29/17 15:29 Urine, Cath Straight Urine Culture - Preliminary Escherichia coli Assessment and Plan (1) Atrial fibrillation with RVR Current visit: Yes Status: Resolved Per cardiology. Continue beta sola and eliquis. (2) Hypotension Current visit: Yes Status: Resolved Secondary to sepsis. Continue IV fluids. (3) Severe sepsis Current visit: Yes Status: Resolved Improving. Secondary to Escherichia coli urinary tract infection and bacteremia. We'll continue with current antibiotics. Awaiting sensitivities. (4) UTI (urinary tract infection) Current visit: Yes Status: Acute Escherichia coli. Continue aztreonam. (5) Hypokalemia Current visit: Yes Status: Resolved (6) Hyperbilirubinemia Current visit: Yes Status: Resolved Improving. Most likely secondary to volume depletion. We'll continue to monitor. 04/30/17 13:02 (7) SHELIA (acute kidney injury) Current visit: Yes Status: Acute Improving with volume resuscitation. Secondary to severe sepsis. (8) Hypomagnesemia Current visit: Yes Status: Resolved Assessment and Plan: Patient seen and examined with Lucy Bryan NP. UTI likely etiology of current illness. Will treat with aztreonam until C+S comes back. Sepsis Assessment - Evaluation Sepsis screening result: Severe Sepsis Risk Hospital Course Summary Disclaimer: The visit summary below is not to be considered part of the above Progress Note. Hospital Course: 04/29/17 16:35 Admit to inpatient status under the hospitalist service. Severe sepsis with hypotension -SIRS criteria include leukocytosis, bandemia, tachycardia, tachypnea -Severe sepsis criteria includes hypotension with mean arterial pressure in the 50s to 60s. She received 1 L of IV fluids in the ER. Will continue with normal saline at 150 mL per hour. Systolics in the CCU have improved to greater than 100, with a mean arterial pressure of 75. Hypotension, however, may also be secondary to A. fib with RVR, and not solely a sepsis response. -Aztreonam was given in ED. [facility] records indicate that Omnicef reaction causes itching and a "generalized bad feeling". Continue Aztreonam until cx comes back. -follow results of blood culture; repeat PCT in am -Hold antihypertensives and Robaxin A-fib with RVR -rates improved to 110s with IV digoxin -consult cardiology (Dr. Tolentino) -Echo in November 2016 showed an EF of 60%, mild mitral regurg, mild tricuspid regurg, pulmonic arterial systolic pressure at 35 mmHg. -continue Eliquis -check TSH SHELIA -baseline creatinine is 1.1 per clinic records -IVF; hold nephrotoxic agents -decrease dose of Eliquis to 2.5 mg BID -Aztreonam is dosed at 50% for CrCl of 30 or less (she's at 50) Hypokalemia; hypomagnesemia -replace orally -repeat electrolytes in am Hyperbilirubinemia -Tbili was 7.4 - baseline is 1.6 -LFTs otherwise normal -repeat in am Code status - DNR 04/29/17 Cardiology Afib: Start Metoprolol 25mg BID which should do more for rate control than the BP, Hold Bisoprolol. Echo ordered, report pending. Takes Eliquis 2.5mg for stroke prevention. Hypomagnesemia: replace Magnesium with 2 grams IV 04/30/17 Increase Metoprolol to 50mg BID
[2017-05-01] MEDS: APIXABAN 5 MG TABLET PO SCH ×2 (08:49→21:39)
[2017-05-01] MEDS: CALCIUM 600 + VIT D 400 TABLET PO SCH (08:50)
[2017-05-01] MEDS: PREGABALIN 150 MG CAPSULE PO SCH ×2 (08:50→21:38)
[2017-05-01] MEDS: DULOXETINE 60 MG CAPSULE PO SCH ×2 (08:51→21:38)
[2017-05-01] MEDS: NIFEREX FORTE 150 CAPSULE PO SCH (08:51)
[2017-05-01] MEDS: POLYETHYL GLYCOL 3350 17gm PACKET PO PRN (14:11)
[2017-05-01] MEDS: HYDROCODONE/APAP 7.5 MG/325 MG TABLET PO PRN (17:22)
[2017-05-01] MEDS: AMITRIPTYLINE 10 MG TABLET PO SCH ×2 (21:38→22:36)
[2017-05-01] MEDS: PRAVASTATIN 40 MG TABLET PO SCH (21:39)
[2017-05-02] MEDS: ACETAMINOPHEN 500 MG TABLET PO PRN (03:33)
[2017-05-02] MEDS: NS 1,000 ML IV SCH ×3 (03:33→21:20)
[2017-05-02] MEDS: LEVOTHYROXINE 125 MCG TABLET PO SCH (05:36)
[2017-05-02] MEDS: PANTOPRAZOLE 40 MG TABLET PO SCH (05:36)
[2017-05-02] MEDS: AZTREONAM 1 G in NS 100 ML IV SCH ×4 (05:36→22:08)
[2017-05-02] MEDS: CALCIUM 600 + VIT D 400 TABLET PO SCH (09:34)
[2017-05-02] MEDS: APIXABAN 5 MG TABLET PO SCH ×2 (09:34→21:22)
[2017-05-02] MEDS: NIFEREX FORTE 150 CAPSULE PO SCH (09:34)
[2017-05-02] MEDS: DULOXETINE 60 MG CAPSULE PO SCH ×2 (09:34→21:22)
[2017-05-02] MEDS: POLYETHYL GLYCOL 3350 17gm PACKET PO PRN (09:35)
[2017-05-02] MEDS: PREGABALIN 150 MG CAPSULE PO SCH ×2 (09:35→21:23)
--- NOTE | 2017-05-02 11:03 | Progress Note ---
Subjective: Doing better but extremely weak. Requesting physical therapy. Denies nausea, vomiting or diarrhea. States is urinating better. Objective Vital signs: Temperature 96.7 F L 05/02/17 08:00 Pulse Rate 97 05/02/17 08:00 Respiratory Rate 20 05/02/17 08:00 Blood Pressure 128/75 05/02/17 08:00 Pulse Oximetry 95 05/02/17 08:00 Oxygen Delivery Method Nasal Cannula Oxygen Flow Rate 1 Weight: 141.7 kg Results - Labs CBC & Chem 7: 05/01/17 05:28 05/01/17 05:28 Microbiology Results: Microbiology 04/29/17 15:29 Urine, Cath Straight Urine Culture - Final Escherichia coli Assessment and Plan (1) Atrial fibrillation with RVR Current visit: Yes Status: Chronic Per cardiology. Continue beta sola and eliquis. (2) Hypotension Current visit: Yes Status: Resolved Secondary to sepsis. Continue IV fluids. (3) Severe sepsis Current visit: Yes Status: Resolved Improving. Secondary to Escherichia coli urinary tract infection and bacteremia. We'll continue with Aztreonam. 05/02/17 11:01 (4) UTI (urinary tract infection) Current visit: Yes Status: Acute Escherichia coli. Continue aztreonam. (5) Hypokalemia Current visit: Yes Status: Resolved (6) Hyperbilirubinemia Current visit: Yes Status: Resolved Improving. Most likely secondary to volume depletion. We'll continue to monitor. 04/30/17 13:02 (7) SHELIA (acute kidney injury) Current visit: Yes Status: Acute Improving with volume resuscitation. Secondary to severe sepsis. (8) Hypomagnesemia Current visit: Yes Status: Resolved DVT Prophylaxis: Eliquis GI Prophylaxis: Protonix Sepsis Assessment - Evaluation Sepsis screening result: No Definite Risk Hospital Course Summary Disclaimer: The visit summary below is not to be considered part of the above Progress Note. Hospital Course: 04/29/17 16:35 Admit to inpatient status under the hospitalist service. Severe sepsis with hypotension -SIRS criteria include leukocytosis, bandemia, tachycardia, tachypnea -Severe sepsis criteria includes hypotension with mean arterial pressure in the 50s to 60s. She received 1 L of IV fluids in the ER. Will continue with normal saline at 150 mL per hour. Systolics in the CCU have improved to greater than 100, with a mean arterial pressure of 75. Hypotension, however, may also be secondary to A. fib with RVR, and not solely a sepsis response. -Aztreonam was given in ED. [facility] records indicate that Omnicef reaction causes itching and a "generalized bad feeling". Continue Aztreonam until cx comes back. -follow results of blood culture; repeat PCT in am -Hold antihypertensives and Robaxin A-fib with RVR -rates improved to 110s with IV digoxin -consult cardiology (Dr. Tolentino) -Echo in November 2016 showed an EF of 60%, mild mitral regurg, mild tricuspid regurg, pulmonic arterial systolic pressure at 35 mmHg. -continue Eliquis -check TSH SHELIA -baseline creatinine is 1.1 per clinic records -IVF; hold nephrotoxic agents -decrease dose of Eliquis to 2.5 mg BID -Aztreonam is dosed at 50% for CrCl of 30 or less (she's at 50) Hypokalemia; hypomagnesemia -replace orally -repeat electrolytes in am Hyperbilirubinemia -Tbili was 7.4 - baseline is 1.6 -LFTs otherwise normal -repeat in am Code status - DNR 04/29/17 Cardiology Afib: Start Metoprolol 25mg BID which should do more for rate control than the BP, Hold Bisoprolol. Echo ordered, report pending. Takes Eliquis 2.5mg for stroke prevention. Hypomagnesemia: replace Magnesium with 2 grams IV 04/30/17 Increase Metoprolol to 50mg BID
[2017-05-02] MEDS: HYDROCODONE/APAP 7.5 MG/325 MG TABLET PO PRN (15:51)
[2017-05-02] MEDS: PRAVASTATIN 40 MG TABLET PO SCH (21:23)
[2017-05-02] MEDS: AMITRIPTYLINE 10 MG TABLET PO SCH (21:23)
[2017-05-03] MEDS: HYDROCODONE/APAP 7.5 MG/325 MG TABLET PO PRN ×2 (01:46→02:55)
[2017-05-03] MEDS: ACETAMINOPHEN 500 MG TABLET PO PRN (04:38)
[2017-05-03] MEDS: AZTREONAM 1 G in NS 100 ML IV SCH ×4 (05:33→22:29)
[2017-05-03] MEDS: PANTOPRAZOLE 40 MG TABLET PO SCH (05:33)
[2017-05-03] MEDS: LEVOTHYROXINE 125 MCG TABLET PO SCH (05:33)
[2017-05-03] MEDS: NS 1,000 ML IV SCH ×3 (05:34→06:38)
[2017-05-03] MEDS: CALCIUM 600 + VIT D 400 TABLET PO SCH (09:03)
[2017-05-03] MEDS: PREGABALIN 150 MG CAPSULE PO SCH ×2 (09:03→21:38)
[2017-05-03] MEDS: DULOXETINE 60 MG CAPSULE PO SCH ×2 (09:03→21:36)
[2017-05-03] MEDS: APIXABAN 5 MG TABLET PO SCH ×2 (09:03→21:37)
[2017-05-03] MEDS: NIFEREX FORTE 150 CAPSULE PO SCH (09:03)
--- NOTE | 2017-05-03 10:22 | Progress Note ---
Subjective: Oral feeling better. Still very weak. Had urinary retention last night. Objective Vital signs: Temperature 97.8 F 05/03/17 08:00 Pulse Rate 84 05/03/17 08:00 Respiratory Rate 22 05/03/17 08:00 Blood Pressure 117/75 05/03/17 08:00 Pulse Oximetry 92 05/03/17 08:00 Oxygen Delivery Method Room Air Oxygen Flow Rate 1 General-awake alert oriented 3, in no acute distress CV-Irregularly irregular Lungs-clear auscultation bilaterally Abdomen-benign Extremities-no edema cyanosis or clubbing Neurological-nonfocal Weight: 144.3 kg Results - Labs CBC & Chem 7: 05/03/17 04:54 05/03/17 04:54 Microbiology Results: Microbiology 04/29/17 15:29 Urine, Cath Straight Urine Culture - Final Escherichia coli Assessment and Plan (1) Atrial fibrillation with RVR Current visit: Yes Status: Chronic Per cardiology. Continue beta sola and eliquis. Rate controlled. A need to increase dose of Eliquis now that her renal function has improved. 05/03/17 10:23 (2) Hypotension Current visit: Yes Status: Resolved Secondary to sepsis. Continue IV fluids. (3) Severe sepsis Current visit: Yes Status: Resolved Improving. Secondary to Escherichia coli urinary tract infection and bacteremia. We'll continue with Aztreonam. 05/03/17 10:24 (4) UTI (urinary tract infection) Current visit: Yes Status: Acute Escherichia coli. Continue aztreonam. (5) Hypokalemia Current visit: Yes Status: Resolved (6) Hyperbilirubinemia Current visit: Yes Status: Resolved Improving. Most likely secondary to volume depletion. We'll continue to monitor. 04/30/17 13:02 (7) SHELIA (acute kidney injury) Current visit: Yes Status: Resolved Improving with volume resuscitation. Secondary to severe sepsis. (8) Hypomagnesemia Current visit: Yes Status: Resolved (9) Asthenia Current visit: Yes Status: Acute Secondary to sepsis. Will consult for rehabilitation placement. 05/03/17 10:25 DVT Prophylaxis: Eliquis GI Prophylaxis: Protonix Sepsis Assessment - Evaluation Sepsis screening result: No Definite Risk Hospital Course Summary Disclaimer: The visit summary below is not to be considered part of the above Progress Note. Hospital Course: 04/29/17 16:35 Admit to inpatient status under the hospitalist service. Severe sepsis with hypotension -SIRS criteria include leukocytosis, bandemia, tachycardia, tachypnea -Severe sepsis criteria includes hypotension with mean arterial pressure in the 50s to 60s. She received 1 L of IV fluids in the ER. Will continue with normal saline at 150 mL per hour. Systolics in the CCU have improved to greater than 100, with a mean arterial pressure of 75. Hypotension, however, may also be secondary to A. fib with RVR, and not solely a sepsis response. -Aztreonam was given in ED. [facility] records indicate that Omnicef reaction causes itching and a "generalized bad feeling". Continue Aztreonam until cx comes back. -follow results of blood culture; repeat PCT in am -Hold antihypertensives and Robaxin A-fib with RVR -rates improved to 110s with IV digoxin -consult cardiology (Dr. Tolentino) -Echo in November 2016 showed an EF of 60%, mild mitral regurg, mild tricuspid regurg, pulmonic arterial systolic pressure at 35 mmHg. -continue Eliquis -check TSH SHELIA -baseline creatinine is 1.1 per clinic records -IVF; hold nephrotoxic agents -decrease dose of Eliquis to 2.5 mg BID -Aztreonam is dosed at 50% for CrCl of 30 or less (she's at 50) Hypokalemia; hypomagnesemia -replace orally -repeat electrolytes in am Hyperbilirubinemia -Tbili was 7.4 - baseline is 1.6 -LFTs otherwise normal -repeat in am Code status - DNR 04/29/17 Cardiology Afib: Start Metoprolol 25mg BID which should do more for rate control than the BP, Hold Bisoprolol. Echo ordered, report pending. Takes Eliquis 2.5mg for stroke prevention. Hypomagnesemia: replace Magnesium with 2 grams IV 04/30/17 Increase Metoprolol to 50mg BID
--- NOTE | 2017-05-03 12:27 | Cardiology Progress Note ---
Subjective Principal diagnosis: Afib RVR <Bibiana Negrete - 05/03/17 12:50> Interval history: Kyung is seen in her room on [facility], she is sitting up in the recliner. She is alert and oriented. She states she is hopeful to go to IRU to gain her strength back. She denies chest pain or pressure, palpitations or dyspnea. <Bibiana Negrete - 05/03/17 12:50> Exam Vital signs: Temperature 97.3 F 05/04/17 07:34 Pulse Rate 84 05/04/17 07:34 Respiratory Rate 16 05/04/17 07:34 Blood Pressure 141/89 H 05/04/17 07:34 Pulse Oximetry 98 05/04/17 07:34 Oxygen Delivery Method Nasal Cannula Oxygen Flow Rate 2 <RandaRusty - 05/05/17 12:01> Temperature 97.8 F 05/03/17 08:00 Pulse Rate 84 05/03/17 08:00 Respiratory Rate 22 05/03/17 08:00 Blood Pressure 117/75 05/03/17 08:00 Pulse Oximetry 92 05/03/17 08:00 Oxygen Delivery Method Room Air Oxygen Flow Rate 1 <Bibiana Negrete - 05/03/17 12:50> - Constitutional no acute distress, obese, cooperative <Bibiana Negrete 05/03/17 12:50> - Routine HEENT Exam Head: Present: normocephalic <Bibiana Negrete 05/03/17 12:50> ENT: Present: mucous membranes moist <Bibiana Negrete 05/03/17 12:50> - Routine Neck Exam Absent: JVD, carotid bruit <CadenBibiana Cooper 05/03/17 12:50> - Routine Chest/Breast/Axilla Exam Chest wall: Absent: tenderness <CadenBibiana Kenneth 05/03/17 12:50> - Routine Respiratory Exam Present: CTA bilaterally. Absent: dyspnea, rales, wheezes <CadenBibiana Cooper 05/03/17 12:50> - Routine Cardiovascular Exam Present: no murmur, irregular rhythm. Absent: JVD <Bibiana Negrete 05/03/17 12:50> - Routine Abdominal Exam Present: soft, normoactive bowel sounds <Bibiana Negrete 05/03/17 12:50> - Routine Extremities Exam Present: no edema <Bibiana Negrete 05/03/17 12:50> - Routine Skin Exam Present: intact, dry, warm <Bibiana Negrete 05/03/17 12:50> - Routine Neurological Exam Present: alert, oriented X3 <Bibiana Negrete 05/03/17 12:50> - Routine Psychiatric Exam Present: normal affect, normal thought process <Bibiana Negrete 05/03/17 12: 50> - Urinary Catheter Management Straight Cath placed during this visit: no <Rusty Tolentino 05/05/17 12:01> yes <Bibiana Negrete 05/05/17 10:37> Urethral indwelling: Yes <Bibiana Negrete 05/03/17 12:50> Reason for continuing: Accurate I&O/Aggressive Diuresis <Bibiana Negrete 10:37> Insertion date: 05/03/17 <Bibiana Negrete 05/03/17 12:50> Insertion time: 01:25 <Bibiana Negrete 05/03/17 12:50> Urethral Cath placed during this visit: no <Rusty Tolentino 05/05/17 12:01> yes <Bibiana Negrete 05/05/17 10:37> Urethral indwelling: Yes <Bibiana Negrete 05/03/17 12:50> Reason for continuing: Accurate I&O/Aggressive Diuresis <Bibiana Negrete 10:37> Insertion date: 04/29/17 <Bibiana Negrete 05/03/17 12:50> Insertion time: 15:20 <Bibiana Negrete 05/03/17 12:50> Hospital Course This is a general summary of the patient's hospital course. For more details refer to the complete medical record. <Rusty Tolentino 05/05/17 12:01> This is a general summary of the patient's hospital course. For more details refer to the complete medical record. <Bibiana Negrete 05/03/17 12:50> Hospital course: 04/29/17 16:35 Admit to inpatient status under the hospitalist service. Severe sepsis with hypotension -SIRS criteria include leukocytosis, bandemia, tachycardia, tachypnea -Severe sepsis criteria includes hypotension with mean arterial pressure in the 50s to 60s. She received 1 L of IV fluids in the ER. Will continue with normal saline at 150 mL per hour. Systolics in the CCU have improved to greater than 100, with a mean arterial pressure of 75. Hypotension, however, may also be secondary to A. fib with RVR, and not solely a sepsis response. -Aztreonam was given in ED. [facility] records indicate that Omnicef reaction causes itching and a "generalized bad feeling". Continue Aztreonam until cx comes back. -follow results of blood culture; repeat PCT in am -Hold antihypertensives and Robaxin A-fib with RVR -rates improved to 110s with IV digoxin -consult cardiology (Dr. Tolentino) -Echo in November 2016 showed an EF of 60%, mild mitral regurg, mild tricuspid regurg, pulmonic arterial systolic pressure at 35 mmHg. -continue Eliquis -check TSH SHELIA -baseline creatinine is 1.1 per clinic records -IVF; hold nephrotoxic agents -decrease dose of Eliquis to 2.5 mg BID -Aztreonam is dosed at 50% for CrCl of 30 or less (she's at 50) Hypokalemia; hypomagnesemia -replace orally -repeat electrolytes in am Hyperbilirubinemia -Tbili was 7.4 - baseline is 1.6 -LFTs otherwise normal -repeat in am Code status - DNR 04/29/17 Cardiology Afib: Start Metoprolol 25mg BID which should do more for rate control than the BP, Hold Bisoprolol. Echo ordered, report pending. Takes Eliquis 2.5mg for stroke prevention. Hypomagnesemia: replace Magnesium with 2 grams IV 04/30/17 Cardiology Increase Metoprolol to 50mg BID 05/03/17 Hold off on increasing Eliquis for now, continue to watch HGB. <Bibiana Negrete - 05/03/17 16:42> Time spent with patient: less than 15 minutes <Bibiana Negrete - 05/03/17 16:42 > Progress Note-A&P (1) Atrial fibrillation with RVR Status: Chronic (2) Severe sepsis Status: Resolved (3) Hypokalemia Status: Resolved (4) SHELIA (acute kidney injury) Status: Resolved (5) Hypomagnesemia Status: Resolved <Rusty Tolentino - 05/05/17 12:01> (1) Atrial fibrillation with RVR Status: Chronic (2) SHELIA (acute kidney injury) Status: Resolved (3) Severe sepsis Status: Resolved (4) Hypokalemia Status: Resolved (5) Hypomagnesemia Status: Resolved <Bibiana Negrete 05/05/17 10:36> - Time Spent With Patient Total time spent is greater than 50% in coordination of care (as documented) at patient's floor/unit and/or counseling patient: <Rusty Tolentino - 05/05/17 12:01> Total time spent is greater than 50% in coordination of care (as documented) at patient's floor/unit and/or counseling patient: <Bibiana Negrete 05/03/17 12:50> less than 15 minutes <Bibiana Negrete - 05/05/17 10:37> - Attestation Attestation Narrative: Recommendation After examining the patient I agree with the above assessment. I am involved in the formulation of the patient's plan of care. <Rusty Tolentino - 05/05/17 12:01> Sepsis Assessment - Evaluation Sepsis screening result: No Definite Risk <Bibiana Negrete 05/03/17 12:50>
--- NOTE | 2017-05-03 16:21 | Echocardiogram ---
DATE OF PROCEDURE 04/30/2017 This is a two-dimensional echo with spectral Doppler, color-flow and M-mode. It was obtained in a patient with atrial fibrillation with rapid ventricular rate. Left atrial dimension is normal. Left ventricular end-diastolic dimension is normal. Left ventricular wall thickness is normal. LV systolic function is mildly reduced with ejection fraction of about 40%-45%. Right atrium is normal. Right ventricle is normal. Aortic root dimension is normal. Mitral valve is morphologically normal with [id number] mitral regurgitation. Aortic valve appears to be normal. Tricuspid valve shows [id number] tricuspid regurgitation with normal estimated pulmonary artery systolic pressure of 31. Pulmonary valve shows no pulmonary insufficiency. There is no pericardial effusion. IMPRESSION 1. Global hypokinesia with ejection fraction of about 40%-45%. 2. [id number] mitral regurgitation. 3. [id number] tricuspid regurgitation with normal estimated pulmonary artery systolic pressure of 31. MTDD
[2017-05-03] MEDS: PRAVASTATIN 40 MG TABLET PO SCH (21:37)
[2017-05-03] MEDS: AMITRIPTYLINE 10 MG TABLET PO SCH (21:38)
[2017-05-04] MEDS: AZTREONAM 1 G in NS 100 ML IV SCH ×2 (04:17→10:32)
[2017-05-04] MEDS: LEVOTHYROXINE 125 MCG TABLET PO SCH (05:40)
[2017-05-04] MEDS: PANTOPRAZOLE 40 MG TABLET PO SCH (05:40)
[2017-05-04 07:36] VITALS: BP 141/89; PULSE 84; RESP 16; TEMP 97.3; O2SAT 98
[2017-05-04] MEDS: CALCIUM 600 + VIT D 400 TABLET PO SCH (08:46)
[2017-05-04] MEDS: DULOXETINE 60 MG CAPSULE PO SCH (08:46)
[2017-05-04] MEDS: APIXABAN 5 MG TABLET PO SCH (08:46)
[2017-05-04] MEDS: PREGABALIN 150 MG CAPSULE PO SCH (08:47)
[2017-05-04] MEDS: NIFEREX FORTE 150 CAPSULE PO SCH (08:47)
--- NOTE | 2017-05-04 11:17 | Discharge Summary ---
Discharge Information Date of admission: 04/29/17 15:11 Attending Physician: Diana Matos MD Primary care physician: Marlene Haque DO Consults: 04/29/17 15:39 Physician Consult [CONS] Routine Consulting Provider: Rusty Tolentino Reason For Exam: a-fib with RVR Ordering Provider has Notified Ela Teacher: Mulu 05/03/17 IRU Screening [Inpatient Rehab Screening] [CONS] Routine - Discharge Diagnosis (1) Atrial fibrillation with RVR Status: Chronic (2) Severe sepsis Status: Resolved (3) Bacteremia Status: Acute (4) UTI (urinary tract infection) Qualifiers: Urinary tract infection type: acute cystitis Hematuria presence: without hematuria Qualified Code(s): N30.00 - Acute cystitis without hematuria Status: Acute (5) Hypokalemia Status: Resolved (6) Hyperbilirubinemia Status: Resolved (7) SHELIA (acute kidney injury) Status: Resolved (8) Hypomagnesemia Status: Resolved (9) Asthenia Status: Acute - Laboratory Labs: 05/04/17 04:47 05/04/17 04:47 - Microbiology Microbiology 04/29/17 15:29 Urine, Cath Straight Urine Culture - Final Escherichia coli History of Present Illness HPI: Kyung Morales reports that she began to have subjective fever, confusion, chills, sweating in the evening of 04/29/17. She saw her DrElpidio yesterday for results of a back MRI, but was actually feeling fairly well other than "severe" neck pain x2 days (now resolved). She has not had any recent chemo, but reports having cancer "twice". She states the confusion has resolved and she feels at baseline. No n/v/d, just shaking and weakness. She had dizziness/weakness earlier. No known sick exposures. No dysuria/urinary pain, dark-colored urine, frequency. No rashes, insect bites. No chest pain or palpitations. No dysphagia. States A-fib was discovered in early 2016 and she was started on Eliquis per Dr. Rc Wynne. She was evaluated in the ED, and was found to be in A-fib with RVR and was also hypotensive. She received 1L NS bolus and digoxin 500 mcg IV x1, which slowed her rate from 146 to 110. However, she remained hypotensive. Labs showed a PCT of 100 but normal lactate. WBC was 12.4 with a left shift (17% bands). CXR did not show obvious infiltrate. UA pending. Leung was inserted. She was given aztreonam for abx coverage and was admitted under the hospitalist service to inpatient status for treatment of both A. fib with RVR and severe sepsis. She will also need stabilization for abnormal hemodynamic vital signs. Objective Vital signs: Temperature 97.3 F 05/04/17 07:34 Pulse Rate 84 05/04/17 07:34 Respiratory Rate 16 05/04/17 07:34 Blood Pressure 141/89 H 05/04/17 07:34 Pulse Oximetry 98 05/04/17 07:34 Oxygen Delivery Method Nasal Cannula Oxygen Flow Rate 2 General-awake alert oriented 3, in no acute distress CV-Irregularly irregular Lungs-clear auscultation bilaterally Abdomen-benign Extremities-no edema cyanosis or clubbing Neurological-nonfocal Weight: 145.8 kg Hospital Course This is a general summary of the patient's hospital course. For more details refer to the complete medical record. (1) Atrial fibrillation with RVR Status: Chronic Was initially admitted to the ICU since she was in rapid ventricular response. She was seen by cardiology and her medications were adjusted. She is currently rate controlled and anticoagulated on the medications listed above. (2) Severe sepsis Status: Resolved This is the likely etiology of her rapid ventricular response atrial fibrillation. Secondary to urinary tract infection and bacteremia. She was covered with aztreonam when her cultures and sensitivities came back. At current time she is unable to be transitioned to oral medications secondary to her allergies to antibiotics. It is recommended that she continue the IV therapy for a total of 10-14 days given the bacteremia. (3) Bacteremia Status: Acute Escherichia coli. Likely seeded from the urinary tract infection. Continue aztreonam. (4) UTI (urinary tract infection) Qualifiers: Urinary tract infection type: acute cystitis Hematuria presence: without hematuria Qualified Code(s): N30.00 - Acute cystitis without hematuria Status: Acute Continue aztreonam for the Escherichia coli. (5) Hypokalemia Status: Resolved (6) Hyperbilirubinemia Status: Resolved (7) SHELIA (acute kidney injury) Status: Resolved (8) Hypomagnesemia Status: Resolved (9) Asthenia Status: Acute Being transferred to IRU for rehabilitation. Secondary to the sepsis. Hospital course: 04/29/17 16:35 Admit to inpatient status under the hospitalist service. Severe sepsis with hypotension -SIRS criteria include leukocytosis, bandemia, tachycardia, tachypnea -Severe sepsis criteria includes hypotension with mean arterial pressure in the 50s to 60s. She received 1 L of IV fluids in the ER. Will continue with normal saline at 150 mL per hour. Systolics in the CCU have improved to greater than 100, with a mean arterial pressure of 75. Hypotension, however, may also be secondary to A. fib with RVR, and not solely a sepsis response. -Aztreonam was given in ED. [facility] records indicate that Omnicef reaction causes itching and a "generalized bad feeling". Continue Aztreonam until cx comes back. -follow results of blood culture; repeat PCT in am -Hold antihypertensives and Robaxin A-fib with RVR -rates improved to 110s with IV digoxin -consult cardiology (Dr. Tolentino) -Echo in November 2016 showed an EF of 60%, mild mitral regurg, mild tricuspid regurg, pulmonic arterial systolic pressure at 35 mmHg. -continue Eliquis -check TSH SHELIA -baseline creatinine is 1.1 per clinic records -IVF; hold nephrotoxic agents -decrease dose of Eliquis to 2.5 mg BID -Aztreonam is dosed at 50% for CrCl of 30 or less (she's at 50) Hypokalemia; hypomagnesemia -replace orally -repeat electrolytes in am Hyperbilirubinemia -Tbili was 7.4 - baseline is 1.6 -LFTs otherwise normal -repeat in am Code status - DNR 04/29/17 Cardiology Afib: Start Metoprolol 25mg BID which should do more for rate control than the BP, Hold Bisoprolol. Echo ordered, report pending. Takes Eliquis 2.5mg for stroke prevention. Hypomagnesemia: replace Magnesium with 2 grams IV 04/30/17 Cardiology Increase Metoprolol to 50mg BID 05/03/17 Hold off on increasing Eliquis for now, continue to watch HGB. Time spent with patient: 25 - 35 minutes DVT Prophylaxis: Eliquis GI Prophylaxis: Protonix Discharge Plan - Med Rec/Dispo [place] Instructions: A-fib (Atrial Fibrillation) (GEN) Prescriptions: No Action Duloxetine HCl [Cymbalta] 60 mg PO BID #0 Pregabalin [Lyrica] 300 mg PO BID #0 Pravastatin Sodium 40 mg PO DAILY #0 Pantoprazole Sodium [Protonix] 40 mg PO DAILY #0 Iron Ps Cmplx/Vit B12/FA [Poly-Iron 150 Forte Capsule] 1 cap PO DAILY Ergocalciferol (Vitamin D2) [Vitamin D2] 2,000 unit PO DAILY Calcium 600 + D [Caltrate + D] 1 tab PO DAILY Letrozole [Letrozole] 2.5 mg PO DAILY Bisoprolol [Zebeta] 2.5 mg PO DAILY Apixaban [Eliquis] 5 mg PO BID Losartan/Hctz 50/12.5 [Hyzaar 50/12.5] 1 tab PO DAILY Acetaminophen [Acetaminophen Extra Strength] 1,000 mg PO Q6H PRN PRN Reason: Pain Hydrocodone/APAP 7.5/325 [[place] 7.5/325] 1 - 2 tab PO Q6H PRN PRN Reason: Pain Polyethylene Glycol 3350 [Miralax] 17 gm PO DAILY PRN PRN Reason: Constipation Lidocaine 1 patch TP DAILY PRN PRN Reason: Pain Methocarbamol [Robaxin] 750 mg PO TID PRN PRN Reason: Prn Orders Levothyroxine Sodium 125 mcg PO ACB Amitriptyline [Elavil] 10 mg PO HS - Disposition 01 Discharged Home, Self-Care
--- NOTE | 2017-05-04 11:27 | Discharge Instructions ---
Discharge Plan - [facility] Rec/Dispo [place] Instructions: A-fib (Atrial Fibrillation) (GEN) Prescriptions: New Acetaminophen [Tylenol] 500 mg PO Q5H PRN tablet PRN Reason: Discomfort Metoprolol Tartrate [Lopressor] 50 mg PO BIDWM tablet Apixaban [Eliquis] 2.5 mg PO BID tablet Aztreonam 1 gm IJ Q8HR #12 vial Continue Duloxetine HCl [Cymbalta] 60 mg PO BID #0 Pregabalin [Lyrica] 300 mg PO BID #0 Pravastatin Sodium 40 mg PO DAILY #0 Pantoprazole Sodium [Protonix] 40 mg PO DAILY #0 Iron Ps Cmplx/Vit B12/FA [Poly-Iron 150 Forte Capsule] 1 cap PO DAILY Ergocalciferol (Vitamin D2) [Vitamin D2] 2,000 unit PO DAILY Calcium 600 + D [Caltrate + D] 1 tab PO DAILY Hydrocodone/APAP 7.5/325 [[place] 7.5/325] 1 - 2 tab PO Q6H PRN PRN Reason: Pain Polyethylene Glycol 3350 [Miralax] 17 gm PO DAILY PRN PRN Reason: Constipation Lidocaine 1 patch TP DAILY PRN PRN Reason: Pain Levothyroxine Sodium 125 mcg PO ACB Discontinued Letrozole [Letrozole] 2.5 mg PO DAILY Bisoprolol [Zebeta] 2.5 mg PO DAILY Apixaban [Eliquis] 5 mg PO BID Losartan/Hctz 50/12.5 [Hyzaar 50/12.5] 1 tab PO DAILY Acetaminophen [Acetaminophen Extra Strength] 1,000 mg PO Q6H PRN PRN Reason: Pain Methocarbamol [Robaxin] 750 mg PO TID PRN PRN Reason: Prn Orders Amitriptyline [Elavil] 10 mg PO HS Discharge Instructions/Outpatient Orders: Final Provider Discharge Instructions Location: Determined By Patient - Disposition 62 To [facility]
[2017-05-04] MEDS: SALINE FLUSH 10ml SYRINGE IVF PRN (12:32)
== END 2017-05-04 13:57 | DRG 872 ==
LOC: ED 12:40 → CCU 15:11 → MED 05-01 11:30
PROVIDERS: ADMIT Internal Medicine; ATTEND Internal Medicine

== ENCOUNTER 2017-05-04 14:10 | Inpatient (IN) ==
[2017-05-04 15:36] VITALS: BMI 56.0
[2017-05-04] MEDS ORDERED: LIDOCAINE 5% PATCH TOP PRN (15:57)
[2017-05-04] MEDS ORDERED: ACETAMINOPHEN 500 MG TABLET PO PRN (15:57)
[2017-05-04] MEDS ORDERED: POLYETHYL. GLYCOL 3350 BOTTLE 238 GM PO PRN (15:57)
[2017-05-04] MEDS ORDERED: LIDOCAINE PATCH REMOVAL TOP PRN (16:08)
[2017-05-04] MEDS ORDERED: AZTREONAM 1 GM IV SCH (17:00)
[2017-05-04] MEDS ORDERED: NS FLUSH BAG 500ml IV PRN (18:26)
[2017-05-04] MEDS: AZTREONAM 1 G in NS 100 ML IV SCH (18:44)
[2017-05-04] MEDS ORDERED: FALL RISK - PHARMACY CONSULT MC PRN (18:58)
[2017-05-04] MEDS ORDERED: POLYETHYL GLYCOL 3350 17gm PACKET PO PRN (19:15)
[2017-05-04] MEDS: APIXABAN 5 MG TABLET PO SCH (21:00)
[2017-05-04] MEDS: DULOXETINE 60 MG CAPSULE PO SCH (21:00)
[2017-05-04] MEDS: PREGABALIN 150 MG CAPSULE PO SCH (21:00)
[2017-05-04] MEDS: PRAVASTATIN 40 MG TABLET PO SCH (21:00)
--- NOTE | 2017-05-04 21:44 | IRU History & Physical Report ---
HPI [facility] Date: Chief complaint: I'm weak and shaky HPI: Ms. Tapia is a 71 yo female living independently in [place], [place] adjacent to [facility]. She was admitted to acute care with severe "shakiness" and weakness. It was determined that she had a UTI with E. coli, severe sepsis, positive blood cultures for E. coli, hypotension, acute kidney injury and hypokalemia. She was treated with fluid boluses and IV antibiotics. She was diagnosed with atrial fib in November of this year at the time of an evaluation for a right mastectomy which was subsequently carried out. She is on Eliquis in this regard. However at the time of her acute admission she was experiencing atrial fibrillation with RVR in conjunction with her severe sepsis and hypotension. Because of these multiple medical problems she is very debilitated and is wanting to improve her strength and endurance before returning to her home to independent living. PT notes reduces trunk and neck strength. She will continue to receive IV antibiotics while on the acute rehab unit. She has numerous medicinal allergies. As a result of her recent severe sepsis, atrial fib with RVR and hypotension she is debilitated. She will be able to tolerate and benefit from 3 hours of therapy daily, 5 days weekly. She will receive an intensive, individualized plan of OT, PT as well as require nursing and medical supervision of her cardiac status as well as the recent infection to monitor for any recurrence and to prevent a readmission. She does request no resuscitative efforts be undertaken in the event of an arrest. Review of Systems - Constitutional Constitutional: Present: chills, weakness - Cardiovascular Rhythm: Present: abnormal rhythm Cardiovascular Comments: She has had At fib with RVR (acute on chronic). She denies chest pain or dyspnea. - Respiratory Respiratory Comments: While she denies dyspnea, she does complain of fatigue with activity. - Gastrointestinal Gastrointestinal Comments: Appetite is slowly returning after this most recent event. Denies nausea or vomiting. - Genitourinary Genitourinary: Present: urinary incontinence - Neurological Neurological: Present: weakness Neurological Comments: No TIA nor unilateral weakness is noted. [facility] Patient Stated Medical History Peripheral Neuropathy Yes Other HEENT Yes: WEARS GLASSES Cardiac Arrhythmia Yes: AFIB Hypertension Yes Pneumonia Yes: 2012 Obstructive Bowel Yes: 2007 Hx Incontinence Yes Hx Urinary Tract Infection Yes: CURRENT Clotting Problems Yes: TAKES ELIQUIS Osteoarthritis Yes Anesthesia Reactions NO PROBLEMS Blood Transfusions Yes: NO REACTION Chemotherapy Yes Depression Yes Surgical History: left lumpectomy 1999. right radical mastectomy 12/08/16. Colonoscopy 08/30/12. Distal radius fracture 2011. Total knee arthroplasty 2007. Appendectomy 1995. Cholecystectomy 1995. Hysterectomy 1995. 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.) Current residence: Independent Living Medications Home Medications Medication Instructions Recorded Confirmed Type Duloxetine HCl [Cymbalta] 60 mg PO BID #0 02/03/11 05/04/17 History Pregabalin [Lyrica] 300 mg PO BID #0 02/03/11 05/04/17 History Pantoprazole Sodium [Protonix] 40 mg PO DAILY #0 08/25/12 05/04/17 History Pravastatin Sodium 40 mg PO DAILY #0 08/25/12 05/04/17 History Calcium 600 + D [Caltrate + D] 1 tab PO DAILY 04/29/17 05/04/17 History Ergocalciferol (Vitamin D2) 2,000 unit PO DAILY 04/29/17 05/04/17 History [Vitamin D2] Hydrocodone/APAP 7.5/325 [[place] 1 - 2 tab PO Q6H PRN 04/29/17 05/04/17 History 7.5/325] Iron Ps Cmplx/Vit B12/FA 1 cap PO DAILY 04/29/17 05/04/17 History [Poly-Iron 150 Forte Capsule] Levothyroxine Sodium 125 mcg PO ACB 04/29/17 05/04/17 History Lidocaine 1 patch TP DAILY PRN 04/29/17 05/04/17 History Polyethylene Glycol 3350 [Miralax] 17 gm PO DAILY PRN 04/29/17 05/04/17 History Allergies Allergy/AdvReac Type Severity Reaction Status Date / Time oxycodone Allergy Mild Itching Verified 05/04/17 14:45 tramadol Allergy Mild RASH Verified 05/04/17 14:45 adhesive Allergy Unknown Verified 05/04/17 14:45 levofloxacin Allergy Unknown Muscle Verified 05/04/17 14:45 Cramping morphine Allergy Unknown Itching Verified 05/04/17 14:45 Omnicef Allergy Unknown Itching Uncoded 05/04/17 14:45 Results IRU - Labs Labs: I reviewed the acute care labs. Exam Vital Signs: Temperature 97.7 F 05/04/17 14:23 Pulse Rate 82 05/04/17 14:23 Respiratory Rate 18 05/04/17 14:23 Blood Pressure 147/87 H 05/04/17 14:23 Pulse Oximetry 98 05/04/17 14:23 Oxygen Delivery Method Room Air Height: 1.63 m Weight: 148 kg Body Mass Index: 56.0 - Constitutional Present: no acute distress, cooperative - Routine HEENT Exam Eye: Present: EOMI, PERRL ENT: Present: mucous membranes moist - Routine Neck Exam Present: supple - Routine Respiratory Exam Present: CTA bilaterally - Routine Cardiovascular Exam Present: S1, S2, murmur (Systolic murmur, LSB, II/), irregular rhythm ( Uncertain clinically if still in at fib. There is some irregularity noted.) - Routine Extremities Exam Present: no edema - Routine Skin Exam Present: intact, warm - Routine Neurological Exam Present: alert, oriented X3 - Routine Psychiatric Exam Present: normal affect, normal thought process, cooperative, good insight, good judgment Sepsis Assessment - Evaluation Sepsis screening result: No Definite Risk IRU A/P (1) UTI (urinary tract infection) Qualifiers: Urinary tract infection type: acute cystitis Hematuria presence: without hematuria Qualified Code(s): N30.00 - Acute cystitis without hematuria Current visit: No Status: Acute Patient was admitted with UTI and positive blood cultures. Her BP was low. It has now normalized. She is on aztreonam. She will require nursing and medical monitoring of her infection status. (2) Bacteremia Current visit: No Status: Acute Blood cultures were positive for E. Coli. She is on IV antibiotics. Her recent infection and sepsis will require a coordinated care plan to help her achieve independence. (3) Severe sepsis Current visit: No Status: Resolved Sepsis noted and is resolved. (4) Asthenia Current visit: No Status: Acute She is acutely weak and asthenic. She will receive an intensive individualized program of PT, OT and nursing/medical management to help to avoid a re- hospitalization and return her home and prior level of functioning. (5) Atrial fibrillation with RVR Current visit: No Status: Acute Has had rapid ventricular response. Her meds have been adjusted. We will monitor this. DVT Prophylaxis: SCD's, Eliquis - Course Hospital Course: Lance Davis MD: - Interventions to Obtain Goals OT Treatment Plan: ADL (Basic Care), Balance Training, IADL, Pt./Family Education, Ther. Exercise for ADL
[2017-05-05] MEDS: AZTREONAM 1 G in NS 100 ML IV SCH ×3 (03:18→22:12)
[2017-05-05] MEDS: HYDROCODONE/APAP 7.5 MG/325 MG TABLET PO PRN (06:15)
[2017-05-05] MEDS: PANTOPRAZOLE 40 MG TABLET PO SCH ×2 (06:15→10:16)
[2017-05-05] MEDS: LEVOTHYROXINE 125 MCG TABLET PO SCH (06:15)
--- NOTE | 2017-05-05 09:03 | IRU 24Hr Post Admit Eval ---
24 Hr Post Admission Physical - Relevant Changes Relevant Changes: No Reviewed: I have reviewed the patient's information and concur with the finding and results of the pre-admission screen. Certification: I certify the patient for rehabilitation. - Patient Condition (1) UTI (urinary tract infection) Status: Acute Qualifiers: Urinary tract infection type: acute cystitis Hematuria presence: without hematuria Qualified Code(s): N30.00 - Acute cystitis without hematuria Code(s): N39.0 - Urinary tract infection, site not specified Additional Information: Patient remains on intravenous aztreonam for her Escherichia coli urinary tract infection with previous sepsis. She was also positive for this in her bloodstream. She will have completed 6 days after today believe. Management per hospitalist. (2) Bacteremia Status: Acute Code(s): R78.81 - Bacteremia Additional Information: As above (3) Severe sepsis Status: Resolved Code(s): A41.9 - Sepsis, unspecified organism; R65.20 - Severe sepsis without septic shock (4) Asthenia Status: Acute Code(s): R53.1 - Weakness Additional Information: She does have weakness related to the recent septic episode. No significant changes have been noted since initial evaluation. (5) Atrial fibrillation with RVR Status: Acute Code(s): I48.91 - Unspecified atrial fibrillation Classification: Diagnosis Requiring Medical Follow Up - Prior Functional Status Lives With: Alone Residence Type: Independent Living Prior Functional Status: Indep. at home or school, Used no assistive device, Indep. w/ all home ADL - Current Functional Status Failed Alternative Therapy: Arrived from Acute Care Patient Requirements: The patient requires oversight by rehabilitation physician to manage their rehabilitation treatment plan and multidisciplinary approach to care that can only be provided in an IRF and requires a multidisciplinary approach to care, provided by professional PTs, OTs, STs, dieticians, RTs, rehabilitation nurses and is not available in lesser levels of care. Physical Therapy Minutes: 90 Occupational Therapy Minutes: 90 Therapy: The patient is to receive therapy at least 5 days a week. - Complications/Comorbidities Barriers to Discharge: Weakness, Balance, Endurance - Plan to Avoid Complications Plan to Avoid Complications: The patient cannot receive this care in a lesser intensive setting such as [facility] or Outpatient Therapy due to the patient requiring the following : She requires continued nursing and medical monitoring for recurrence of her urinary tract infection and sepsis. She requires a coordinated intensive an individualized plan of care to return her to her home including occupational therapy and physical therapy. This coordinated plan cannot be provided at a lower level of care. .
--- NOTE | 2017-05-05 09:07 | IRU Progress Note ---
- Subjective/Serverity of Illness Mr. Morales is adjusting to life on the rehabilitation unit well. She does have debility related to recent episode of sepsis. She remains on intravenous aztreonam and is tolerating this well. She is intolerant to numerous oral antibiotics apparently. She had positive blood cultures for Escherichia coli and had severe sepsis. In addition she had atrial fibrillation with rapid ventricular response. Atrial fibrillation was initially diagnosed in November 2016. She remains on telemetry and this is being monitored. She denies any shaking chills at the present time. She states that her appetite is good. She denies any nausea or vomiting. She is initiating work with therapies today. Exam Vital Signs: Temperature 97.7 F 05/04/17 21:45 Pulse Rate 78 05/05/17 00:05 Respiratory Rate 18 05/04/17 21:45 Blood Pressure 163/88 H 05/04/17 21:45 Pulse Oximetry 95 05/04/17 21:45 Oxygen Delivery Method Room Air Height: 1.63 m Weight: 148 kg Body Mass Index: 56.0 - Constitutional Present: no acute distress, morbidly obese, cooperative - Routine HEENT Exam Head: Present: normocephalic ENT: Present: mucous membranes moist - Routine Neck Exam Present: supple - Routine Respiratory Exam Present: CTA bilaterally - Routine Cardiovascular Exam Present: murmur, irregular rhythm - Routine Abdominal Exam Present: soft, normoactive bowel sounds, non distended, non tender - Routine Extremities Exam Present: no edema - Routine Skin Exam Present: intact. Absent: erythema - Routine Neurological Exam Present: alert, oriented X3 - Routine Psychiatric Exam Present: normal affect, normal thought process, cooperative, good insight, good judgment Results IRU - Labs Labs: Reviewed laboratory findings including creatinine of 1.3. She likely suffered acute kidney injury with the recent episode of sepsis. Uncertain what her baseline creatinine is. Sepsis Assessment - Evaluation Sepsis screening result: No Definite Risk Possible source: genitourinary Confirmed Suspected Infection: Yes (previously diagnosed wiUTI and severe sepsis at the time of acute admission) IRU A/P (1) UTI (urinary tract infection) Qualifiers: Urinary tract infection type: acute cystitis Hematuria presence: without hematuria Qualified Code(s): N30.00 - Acute cystitis without hematuria Current visit: No Status: Acute Remains on intravenous aztreonam. She denies any dysuria or frequency. She denies any shaking chills. Appetite is improved. (2) Bacteremia Current visit: No Status: Acute Completing approximately day 6 of intravenous antibiotics. (3) Asthenia Current visit: No Status: Acute Has generalized weakness related to the recent episode of sepsis. Beginning work with therapies. (4) Atrial fibrillation with RVR Current visit: No Status: Acute Initially diagnosed with atrial fibrillation in November 2016. She is on Eliquis. Had rapid ventricular response at the time of admission. She remains on telemetry and we will monitor the strips. DVT Prophylaxis: SCD's, Eliquis - Course Hospital Course: Lance Davis MD: - Interventions to Obtain Goals OT Treatment Plan: ADL (Basic Care), Balance Training, IADL, Pt./Family Education, Ther. Exercise for ADL
[2017-05-05] MEDS: NIFEREX FORTE 150 CAPSULE PO SCH (09:25)
[2017-05-05] MEDS: PREGABALIN 150 MG CAPSULE PO SCH ×2 (09:25→22:13)
[2017-05-05] MEDS: CALCIUM 600 + VIT D 400 TABLET PO SCH (09:26)
[2017-05-05] MEDS: APIXABAN 5 MG TABLET PO SCH ×2 (09:26→22:13)
[2017-05-05] MEDS: DULOXETINE 60 MG CAPSULE PO SCH ×2 (09:26→22:13)
--- NOTE | 2017-05-05 10:25 | Consult Note ---
Consult Information - Data of Consult Patient: known to practice within the last 3 years Consult date: 05/05/17 Requesting Physician: Lance Davis MD Primary Care Provider: Marlene Haque DO Family Provider: Marlene Haque DO - Consult Narrative Reason for consult: Medical management of bacteremia, recent UTI, atrial fibrillation History of present illness: Kyung is a pleasant 71-year-old female who is well known to the hospitalist services for her recent acute admission with atrial fibrillation RVR, severe sepsis, bacteremia with urinary tract infection. She was originally admitted on 04/29/17 under the care. The hospitalist services, at which time she was found to have sepsis secondary to urinary tract infection and bacteremia. On admission she initially was found to be in atrial fibrillation with rapid ventricular rate and hypotension. She initially was in the ICU for further cardiac evaluation and monitoring. Her rate was controlled and she continued on chronic anticoagulation. Her sepsis resolved as she was treated with Aztreonam for Escherichia coli positive. Blood cultures 2. Over the course of her acute stay, she became medically stable and was then accepted to inpatient rehabilitation unit for ongoing strengthening. Kyung is seen this morning for initial medical consultation. She is alert, oriented and pleasant. She is without acute complaints of pain, shortness of breath, palpitations. She does question the length of her needed antibiotics. In reviewing chart. Patient did have positive blood cultures on 04/29, which were both positive for Escherichia coli along with her urinalysis. Culture and sensitivity were reviewed, however, with her multiple medication allergies she is being treated with Aztreonam. FORMERLY [facility], 1928–1983 Patient Stated Medical History History of breast cancer Peripheral Neuropathy Yes Other HEENT Yes: WEARS GLASSES Cardiac Arrhythmia Yes: AFIB Hypertension Yes Pneumonia Yes: 2012 Obstructive Bowel Yes: 2007 Hx Incontinence Yes Hx Urinary Tract Infection Yes: CURRENT Clotting Problems Yes: TAKES ELIQUIS Osteoarthritis Yes Anesthesia Reactions NO PROBLEMS Blood Transfusions Yes: NO REACTION Chemotherapy Yes Depression Yes Surgical History: left lumpectomy 1999. right radical mastectomy 12/08/16. Colonoscopy 08/30/12. Distal radius fracture 2011. Total knee arthroplasty 2007. Appendectomy 1995. Cholecystectomy 1995. Hysterectomy 1995. Colonoscopy 1994 Family History: Strong FH for breast cancer Mother had breast cancer, diabetes, hypertension, obesity and stroke. Brother with colon cancer. Father had heart disease and hypertension. Sister with ovarian cancer and diabetes - Social History Smoking status: Never smoker Substance use type: does not use Alcohol intake frequency: does not drink Current residence: [facility] ([place], [place]) Social history: PCP Dr Haque Review of Systems All systems: reviewed and no additional remarkable complaints except as stated Review of systems: Patient denied entire review of systems - Genitourinary Genitourinary: Present: urinary incontinence - Neurological Neurological: Present: weakness Medications Home Medications Medication Instructions Recorded Confirmed Type Duloxetine HCl [Cymbalta] 60 mg PO BID #0 02/03/11 05/04/17 History Pregabalin [Lyrica] 300 mg PO BID #0 02/03/11 05/04/17 History Pantoprazole Sodium [Protonix] 40 mg PO DAILY #0 08/25/12 05/04/17 History Pravastatin Sodium 40 mg PO DAILY #0 08/25/12 05/04/17 History Calcium 600 + D [Caltrate + D] 1 tab PO DAILY 04/29/17 05/04/17 History Ergocalciferol (Vitamin D2) 2,000 unit PO DAILY 04/29/17 05/04/17 History [Vitamin D2] Hydrocodone/APAP 7.5/325 [[place] 1 - 2 tab PO Q6H PRN 04/29/17 05/04/17 History 7.5/325] Iron Ps Cmplx/Vit B12/FA 1 cap PO DAILY 04/29/17 05/04/17 History [Poly-Iron 150 Forte Capsule] Levothyroxine Sodium 125 mcg PO ACB 04/29/17 05/04/17 History Lidocaine 1 patch TP DAILY PRN 04/29/17 05/04/17 History Polyethylene Glycol 3350 [Miralax] 17 gm PO DAILY PRN 04/29/17 05/04/17 History Allergies Allergy/AdvReac Type Severity Reaction Status Date / Time oxycodone Allergy Mild Itching Verified 05/04/17 14:45 tramadol Allergy Mild RASH Verified 05/04/17 14:45 adhesive Allergy Unknown Verified 05/04/17 14:45 levofloxacin Allergy Unknown Muscle Verified 05/04/17 14:45 Cramping morphine Allergy Unknown Itching Verified 05/04/17 14:45 Omnicef Allergy Unknown Itching Uncoded 05/04/17 14:45 Exam Vital Signs: Temperature 97.7 F 05/04/17 21:45 Pulse Rate 78 05/05/17 00:05 Respiratory Rate 18 05/04/17 21:45 Blood Pressure 163/88 H 05/04/17 21:45 Pulse Oximetry 95 05/04/17 21:45 Oxygen Delivery Method Room Air Telemetry Rhythm: A-fib (rate controlled) Height: 1.63 m Weight: 148 kg Body Mass Index: 56.0 - Constitutional Present: well nourished, well developed - Routine HEENT Exam Head: Present: normocephalic, atraumatic Eye: Present: EOMI ENT: Present: mucous membranes moist, dentition normal - Routine Neck Exam Present: full ROM - Routine Respiratory Exam Present: CTA bilaterally. Absent: wheezes - Routine Cardiovascular Exam Present: S1, S2, no murmur, irregular rhythm (atrial fibrillation, rate controlled). Absent: murmur - Routine Abdominal Exam Present: soft, normoactive bowel sounds, non distended. Absent: tenderness - Routine Extremities Exam Present: edema (trace to 1+ bilateral lower extremity edema), full ROM, normal capillary refill - Routine Back/Spine/Pelvis Exam Back/Spine: Present: full ROM - Routine Skin Exam Present: intact, dry, warm - Routine Neurological Exam Present: alert, oriented X3, CN II-XII intact - Routine Psychiatric Exam Present: normal affect, normal thought process Results - Labs CBC & Chem 7: 05/05/17 04:50 05/05/17 04:50 Assessment and Plan (1) Bacteremia Current visit: No Status: Acute (2) SHELIA (acute kidney injury) Current visit: No Status: Resolved (3) UTI (urinary tract infection) Current visit: No Status: Acute (4) Myopathy Current visit: Yes Status: Acute (5) Anemia Current visit: Yes Status: Acute (6) Atrial fibrillation Current visit: Yes Status: Chronic Chronic atrial fibrillation, currently rate controlled (7) Hypertension Current visit: Yes Status: Chronic (8) Chronic anticoagulation Current visit: Yes Status: Chronic (9) Osteoarthritis Current visit: Yes Status: Chronic (10) Peripheral neuropathy Current visit: Yes Status: Chronic (11) Obesity, morbid, BMI 50 or higher Current visit: Yes Status: Chronic DVT Prophylaxis: Eliquis GI Prophylaxis: Protonix Resuscitation Status: Do Not Resuscitate Assessment and Plan: 05/03/19- Inital Consult Agree with admission to inpatient rehabilitation under the care of Dr. Davis for ongoing strengthening. Patient has general fatigue and weakness secondary to the severity of her recent illness. She will continue on Aztreonam IV every 8 hours for treatment of bacteremia. Antibiotic therapy started on 04/29. She will likely require 10-14 days of treatment. Given positive blood cultures. Will recheck blood cultures tomorrow 05/06. Continue to monitor telemetry. Patient remains in atrial fibrillation which is chronic for her. Continue on metoprolol 50 twice a day as she is currently rate controlled. Continue on chronic anticoagulation. Eliquis was 2.5 milligrams twice a day. Will continue to follow routine blood counts given anemia. Likely related to an acute sepsis, as well as history of breast cancer SHELIA- creatinine does continue to trend down, 1.3 today. Lasix does remain on hold. Will continue to monitor for evidence of edema or fluid overload. Will likely be able to resume Lasix at time of discharge. Overall patient appears to be medically stable. Protonix daily for GI protection. Eliquis and SCDs for DVT prophylaxis The hospitalist services will continue to follow patient medical manage during their stay on the rehabilitation unit. At time of discharge medical care will return to primary care provider Dr Haque Hospital Course Summary Disclaimer: The visit summary below is not to be considered part of the above Progress Note. Hospital Course: 05/03/19- Inital Consult Agree with admission to inpatient rehabilitation under the care of Dr. Davis for ongoing strengthening. Patient has general fatigue and weakness secondary to the severity of her recent illness. She will continue on Aztreonam IV every 8 hours for treatment of bacteremia. Antibiotic therapy started on 04/29. She will likely require 10-14 days of treatment. Given positive blood cultures. Will recheck blood cultures tomorrow 05/06. Continue to monitor telemetry. Patient remains in atrial fibrillation which is chronic for her. Continue on metoprolol 50 twice a day as she is currently rate controlled. Continue on chronic anticoagulation. Eliquis was 2.5 milligrams twice a day. Will continue to follow routine blood counts given anemia. Likely related to an acute sepsis, as well as history of breast cancer SHELIA- creatinine does continue to trend down, 1.3 today. Lasix does remain on hold. Will continue to monitor for evidence of edema or fluid overload. Will likely be able to resume Lasix at time of discharge. Overall patient appears to be medically stable. Protonix daily for GI protection. Eliquis and SCDs for DVT prophylaxis The hospitalist services will continue to follow patient medical manage during their stay on the rehabilitation unit. At time of discharge medical care will return to primary care provider Dr Haque Sepsis Assessment - Evaluation Sepsis screening result: No Definite Risk
--- NOTE | 2017-05-05 13:20 | IRU Team Meeting ---
IRU Team Meeting - Nursing Vital Signs: Vital Signs - 24 hr 05/04/17 14:23 05/04/17 21:45 05/05/17 00:05 Temperature 97.7 F 97.7 F Pulse Rate 82 81 78 Respiratory Rate 18 18 Blood Pressure 147/87 H 163/88 H Pulse Oximetry 98 95 05/05/17 07:40 05/05/17 08:00 Temperature 97.6 F Pulse Rate 89 89 Respiratory Rate 18 Blood Pressure 143/88 H Pulse Oximetry 96 Current Medications: Acetaminophen (Tylenol) 500 mg PO Q5H PRN PRN Reason: Discomfort Acetaminophen/Hydrocodone Bitart ([place] 7.5/325) 1 - 2 tab PO Q6H PRN PRN Reason: Pain Last Admin: 05/05/17 06:15 Dose: 1 tab Apixaban (Eliquis) 2.5 mg PO BID [facility] Last Admin: 05/05/17 09:26 Dose: 2.5 mg Calcium/Vitamin D (Caltrate + D) 1 tab PO DAILY [facility] Last Admin: 05/05/17 09:26 Dose: 1 tab Cholecalciferol (Vit. D-3) 2,000 unit PO DAILY [facility] Last Admin: 05/05/17 09:26 Dose: 2,000 unit Duloxetine HCl (Cymbalta) 60 mg PO BID [facility] Last Admin: 05/05/17 09:26 Dose: 60 mg Folic Acid/Iron/Vitamin B12 (Niferex Forte) 1 cap PO DAILY [facility] Last Admin: 05/05/17 09:25 Dose: 1 cap Aztreonam 1 g/ Sodium Chloride 100 mls @ 100 mls/hr IV Q8H [facility] Last Infusion: 05/05/17 04:20 Dose: Infused Levothyroxine Sodium (Synthroid) 125 mcg PO ACB [facility] Last Admin: 05/05/17 06:15 Dose: 125 mcg Lidocaine (Lidoderm) 1 patch TOP DAILY PRN PRN Reason: Pain Lidocaine HCl/Dextrose (Lidoderm Patch Removal) 1 removal TOP 2100 PRN Metoprolol Tartrate (Lopressor) 50 mg PO BIDWM [facility] Last Admin: 05/05/17 09:26 Dose: 50 mg Pantoprazole Sodium (Protonix Tab) 40 mg PO DAILY [facility] Last Admin: 05/05/17 10:16 Dose: 40 mg Polyethylene Glycol (Miralax) 17 gm PO DAILY PRN PRN Reason: CON Pravastatin Sodium (Pravachol) 40 mg PO HS [facility] Last Admin: 05/04/17 21:00 Dose: 40 mg Pregabalin (Lyrica) 300 mg PO BID [facility] Last Admin: 05/05/17 09:25 Dose: 300 mg Sodium Chloride (Normal Saline) 500 ml IV PRN PRN Comments: Pt is on aztreonam for UTI/sepsis. IV is occluded and infusion therapy is working on midline. On lido patch. Not having much pain at present. She has some anemia (Hgb 9.1) and elevated creatinine at 1.3. She is on telemetry for at fib. Dietitian: ate 50%. Fabian is a bit down but seems to be improving. Prefers vegetarian food. Dietitian made some recommendations regarding protein. - Physical Therapy Supine to Sit Bed Mobility Ability: Stand By Assist/Supervision Sit to Supine Bed Mobility Ability: Stand By Assist/Supervision Comments: Max assistance for ambulation. SBA for stairs. Quite weak but has good potential. - Occupational Therapy Eating Ability: Independent Grooming Ability: Contact Guard Assistance Bathing Ability: Moderate Assistance Lower Body Dressing Comment: Unsafe for tub transfer. She is motivated. - Care Plan Anticipated Length of Stay: 7 (Reassess one week) Anticipated DC Destination: Home, Self Care Interventions/Goals: Goals: Increase activity tolerance to 60 min for therapy. Improve functional ability, 1 point per eval increase as applicable for FIM scores. Demonstrate improved safety 50% of the time for transfers. Barriers: Endurance, strength, safety concerns. I personally led this multidisciplinary team meeting and concur with the conclusion and plans.
[2017-05-05] MEDS ORDERED: LABETALOL 100mg/20ml INJECTION IVP PRN ×2 (21:40→23:46)
[2017-05-05] MEDS: PRAVASTATIN 40 MG TABLET PO SCH (22:00)
[2017-05-06] MEDS: HYDROCODONE/APAP 7.5 MG/325 MG TABLET PO PRN ×3 (06:09→16:03)
[2017-05-06] MEDS: AZTREONAM 1 G in NS 100 ML IV SCH ×3 (06:09→22:15)
[2017-05-06] MEDS: LEVOTHYROXINE 125 MCG TABLET PO SCH (06:09)
[2017-05-06] MEDS: PANTOPRAZOLE 40 MG TABLET PO SCH ×2 (06:09→08:09)
[2017-05-06] MEDS: PREGABALIN 150 MG CAPSULE PO SCH ×2 (08:07→22:17)
[2017-05-06] MEDS: NIFEREX FORTE 150 CAPSULE PO SCH (08:07)
[2017-05-06] MEDS: APIXABAN 5 MG TABLET PO SCH ×2 (08:08→22:16)
[2017-05-06] MEDS: DULOXETINE 60 MG CAPSULE PO SCH ×2 (08:09→22:17)
[2017-05-06] MEDS: CALCIUM 600 + VIT D 400 TABLET PO SCH (08:09)
--- NOTE | 2017-05-06 10:54 | IRU Progress Note ---
- Subjective/Serverity of Illness Mrs. Morales was evaluated in her room. She states that her ambulatory ability and transfer ability is improving. She feels much stronger. Her appetite has been reduced but it is likewise improving. Denies any nausea or vomiting. We do note that her blood pressure is elevated. She is on metoprolol only at present. She was on losartan/HCTZ previously but that had been held during the time of her acute septic illness. I did discuss the case with Willow Kothari and we will restart losartan 50 mg daily for the time being because of her blood pressures running in the 160 range. Exam Vital Signs: Temperature 98.1 F 05/06/17 08:00 Pulse Rate 70 05/06/17 10:28 Respiratory Rate 20 05/06/17 08:00 Blood Pressure 141/87 H 05/06/17 10:28 Pulse Oximetry 92 05/06/17 08:00 Oxygen Delivery Method Room Air Height: 1.63 m Weight: 148 kg Body Mass Index: 56.0 - Constitutional Present: no acute distress - Routine HEENT Exam Head: Present: normocephalic Eye: Present: EOMI ENT: Present: mucous membranes moist - Routine Neck Exam Present: supple - Routine Respiratory Exam Present: CTA bilaterally - Routine Cardiovascular Exam Present: RRR, S1, S2, no murmur - Routine Abdominal Exam Present: soft, normoactive bowel sounds, non distended, non tender Results IRU - Labs Labs: I reviewed the current laboratory. Her creatinine is 1.3. Sepsis Assessment - Evaluation Sepsis screening result: No Definite Risk IRU A/P (1) UTI (urinary tract infection) Qualifiers: Urinary tract infection type: acute cystitis Hematuria presence: without hematuria Qualified Code(s): N30.00 - Acute cystitis without hematuria Current visit: No Status: Acute A midline catheter was placed in the left arm yesterday due to difficult IV access. She remains on aztreonam every 8 hours. No current symptoms of UTI noted. (2) Bacteremia Current visit: No Status: Resolved (3) Asthenia Current visit: No Status: Acute Strength is improved at the present time. (4) Atrial fibrillation with RVR Current visit: No Status: Acute (5) Hypertension Qualifiers: Hypertension type: essential hypertension Qualified Code(s): I10 - Essential (primary) hypertension Current visit: Yes Status: Chronic Patient was on losartan/HCTZ at home. This was held during the time of her acute illness. Today we discussed the case and decided to restart losartan by itself. Patient's creatinine is 1.3. Her blood pressures have been running a bit higher at the present time. She remains on metoprolol. Her atrial fibrillation appears to be controlled. 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 Her strength is improving. She is able to ambulate better. Continued intensive physical and occupational therapy are indicated to allow her to return to her previous functioning level. DVT Prophylaxis: Eliquis Resuscitation Status: Do Not Resuscitate - Course Hospital Course: Lance Davis MD: 05/06/17 10:55 Patient states that she is stronger Her blood pressures are running too high at 160 systolic. We will restart losartan 50 mg by itself without the hydrochlorothiazide. I reviewed her laboratory studies and feel this is safe. Her atrial fibrillation rate appears to be controlled. Her appetite is still reduced but improving. - Interventions to Obtain Goals PT Treatment Plan: Balance/Proprioception, Functional Activities, Gait Training , Patient/Family Education, Therapeutic Exercise OT Treatment Plan: ADL (Basic Care), Balance Training, IADL, Pt./Family Education, Ther. Exercise for ADL
[2017-05-06] MEDS ORDERED: LOSARTAN 50 MG TABLET PO SCH (11:00)
--- NOTE | 2017-05-06 12:12 | IRU Plan of Care ---
[facility] Overall Plan of Care - Date Date: 05/06/17 - Patient Impairments (1) UTI (urinary tract infection) Qualifiers: Urinary tract infection type: acute cystitis Hematuria presence: without hematuria Qualified Code(s): N30.00 - Acute cystitis without hematuria Code(s): N39.0 - Urinary tract infection, site not specified Status: Acute Classification: Present on IRF Admission, IRF Tx That Should Address Diagnosis, Diagnosis Requiring Medical Follow Up (2) Bacteremia Code(s): R78.81 - Bacteremia Status: Resolved Classification: Diagnosis Requiring Medical Follow Up (3) Asthenia Code(s): R53.1 - Weakness Status: Acute Classification: Present on IRF Admission, IRF Tx That Should Address Diagnosis (4) Atrial fibrillation with RVR Code(s): I48.91 - Unspecified atrial fibrillation Status: Acute Classification: Present on IRF Admission, Diagnosis Requiring Medical Follow Up (5) Hypertension Qualifiers: Hypertension type: essential hypertension Qualified Code(s): I10 - Essential (primary) hypertension Code(s): I10 - Essential (primary) hypertension Status: Chronic Classification: Present on IRF Admission (6) Myopathy Code(s): G72.9 - Myopathy, unspecified Status: Acute Classification: Present on IRF Admission - Relevant Changes Relevant Changes: No Reviewed: I have reviewed the patient's information and concur with the finding and results of the pre-admission screen. Certification: I certify the patient for rehabilitation. - Medical Prognosis Medical Prognosis: Good Vital Signs: Last Vital Signs Temp 98.1 F 05/06/17 08:00 Pulse 70 05/06/17 10:28 Resp 20 05/06/17 08:00 BP 141/87 H 05/06/17 10:28 Pulse Ox 92 05/06/17 08:00 - Anticipated Interventions Anticipated Interventions: The patient requires inpatient IRF care for PT, OT, and/or ST for residuals remaining from [her disuse myopathy and recent UTI with sepsis] resulting in muscular weakness and strength deficits. - FIM Ambulation Distance: 116 Wheelchair Propulsion Distance: 106 Toileting Adaptive Equipment: Grab Bars Number of Continent Voids: 1 - Current Functional Status Failed Alternative Therapy: Arrived from Acute Care Patient Requires: The patient requires oversight by rehabilitation physician to manage their rehabilitation treatment plan and multidisciplinary approach to care that can only be provided in an IRF and requires a multidisciplinary approach to care, provided by professional PTs, OTs, STs, dieticians, RTs, rehabilitation nurses and is not available in lesser levels of care. Physical Therapy Minutes: 90 Occupational Therapy Minutes: 90 Therapy: The patient is to receive therapy at least 5 days a week. Comments: Continued physical therapy and occupational therapy along with nursing monitoring and administration of intravenous antibiotics for her severe sepsis and urinary tract infection is indicated. She requires medical management and nursing monitoring of these medical issues which impact her rehabilitation potential. - Anticipated LOS/Outcomes Anticipated Functional Outcome: It is anticipated the patient will be able to be independent/modified independent at the time of her dismissal from the acute rehabilitation unit. It is anticipated that she will be going to her apartment in [facility] and provide self-care. She may require home health is good therapy for a while as well. Anticipated Length of Stay: 7 (Reassess one week) Anticipated DC Destination: Home, Self Retirement Safety Plan: The patient will be provided with the development of a Home Safety Plan for return to a home or home-like environment and and to ensure safety post discharge. - Plan to Avoid Complications Barriers to Attaining Goals: Weakness, Endurance Plan to Avoid Complications: The patient cannot receive this care in a lesser intensive setting such as [facility] or Outpatient Therapy due to the patient requiring the following nursing administration of intravenous antibiotics every 8 hours, careful nursing monitoring and medical supervision regarding her recent severe sepsis and urinary tract infection. She requires a multidisciplinary team approach to treat her myopathy and asthenia from her recent medical illness. .
[2017-05-06] MEDS ORDERED: DiphenhydrAMINE 25 MG CAPSULE PO PRN (13:25)
--- NOTE | 2017-05-06 17:37 | Progress Note ---
Subjective: Kyung is seen this afternoon. She is resting, following therapy. She states that her legs have been sore. Due to the increased workout, however, overall she feels that she is gaining strength. No chest pain, shortness of breath or GI complaints. She is voiding without difficulty and appetite continues to improve. Objective Vital signs: Temperature 97.7 F 05/06/17 16:00 Pulse Rate 86 05/06/17 16:30 Respiratory Rate 16 05/06/17 16:00 Blood Pressure 173/102 H 05/06/17 16:30 Pulse Oximetry 95 05/06/17 16:00 Oxygen Delivery Method Room Air Body Mass Index: 56.0 - Constitutional Present: well nourished, well developed - Routine HEENT Exam Eye: Present: EOMI ENT: Present: mucous membranes moist, dentition normal - Routine Respiratory Exam Present: CTA bilaterally. Absent: wheezes - Routine Cardiovascular Exam Present: RRR. Absent: murmur - Routine Abdominal Exam Present: soft, normoactive bowel sounds, non distended. Absent: tenderness - Routine Extremities Exam Present: normal capillary refill - Routine Back/Spine/Pelvis Exam Back/Spine: Present: full ROM - Routine Skin Exam Present: intact, dry, warm - Routine Neurological Exam Present: alert, oriented X3, CN II-XII intact - Routine Lymphatic Exam Lymphatic: Absent: adenopathy - Routine Psychiatric Exam Present: normal affect, normal thought process Results - Labs CBC & Chem 7: 05/05/17 04:50 05/05/17 04:50 Microbiology Results: Microbiology 05/06/17 04:42 Peripheral/Iv Start Blood Culture - Preliminary Culture Initiated - Results Pending 05/06/17 04:42 Peripheral/Iv Start Blood Culture - Preliminary Culture Initiated - Results Pending Assessment and Plan (1) Bacteremia Current visit: No Status: Resolved (2) SHLEIA (acute kidney injury) Current visit: No Status: Resolved (3) UTI (urinary tract infection) Current visit: No Status: Acute (4) Myopathy Current visit: Yes Status: Acute (5) Anemia Current visit: Yes Status: Acute (6) Atrial fibrillation Current visit: Yes Status: Chronic Chronic atrial fibrillation, currently rate controlled (7) Hypertension Current visit: Yes Status: Chronic (8) Chronic anticoagulation Current visit: Yes Status: Chronic (9) Osteoarthritis Current visit: Yes Status: Chronic (10) Peripheral neuropathy Current visit: Yes Status: Chronic (11) Obesity, morbid, BMI 50 or higher Current visit: Yes Status: Chronic Assessment and Plan: 05/06/17 Patient has continued to have episodes of hypertension. Did review her previous home medication list. Place patient back on her losartan/HCTZ 50/12.5 milligrams daily. Will continue to utilize metoprolol 50 mg twice a day. Continue with when necessary labetalol 10 milligrams IV as needed for sustained systolic blood pressure greater than 160. Nursing instruction given to hold this medication if pulse is less than 60. Repeat blood cultures were obtained on 05/06. Will continue on Aztreonam IV. Was started on 04/29. Will discuss further reagarding length of treatment with attending. Can likely change at time of discharge. Apthous ulcers noted to oral mucosa. Will initate Triamcinolone dental past TID. Recehck BMP tomorrow to follow renal function Continue to encourage work with PT and OT for ongoing strengthening. Sepsis Assessment - Evaluation Sepsis screening result: No Definite Risk Hospital Course Summary Disclaimer: The visit summary below is not to be considered part of the above Progress Note. Hospital Course: 05/03/19- Inital Consult Agree with admission to inpatient rehabilitation under the care of Dr. Davis for ongoing strengthening. Patient has general fatigue and weakness secondary to the severity of her recent illness. She will continue on Aztreonam IV every 8 hours for treatment of bacteremia. Antibiotic therapy started on 04/29. She will likely require 10-14 days of treatment. Given positive blood cultures. Will recheck blood cultures tomorrow 05/06. Continue to monitor telemetry. Patient remains in atrial fibrillation which is chronic for her. Continue on metoprolol 50 twice a day as she is currently rate controlled. Continue on chronic anticoagulation. Eliquis was 2.5 milligrams twice a day. Will continue to follow routine blood counts given anemia. Likely related to an acute sepsis, as well as history of breast cancer SHELIA- creatinine does continue to trend down, 1.3 today. Lasix does remain on hold. Will continue to monitor for evidence of edema or fluid overload. Will likely be able to resume Lasix at time of discharge. Overall patient appears to be medically stable. Protonix daily for GI protection. Eliquis and SCDs for DVT prophylaxis The hospitalist services will continue to follow patient medical manage during their stay on the rehabilitation unit. At time of discharge medical care will return to primary care provider Dr Haque 05/06/17 Patient has continued to have episodes of hypertension. Did review her previous home medication list. Place patient back on her losartan/HCTZ 50/12.5 milligrams daily. Will continue to utilize metoprolol 50 mg twice a day. Continue with when necessary labetalol 10 milligrams IV as needed for sustained systolic blood pressure greater than 160. Nursing instruction given to hold this medication if pulse is less than 60. Repeat blood cultures were obtained on 05/06. Will continue on Aztreonam IV. Was started on 04/29. Will discuss further reagarding length of treatment with attending. Can likely change at time of discharge. Apthous ulcers noted to oral mucosa. Will initate Triamcinolone dental past TID. Recehck BMP tomorrow to follow renal function Continue to encourage work with PT and OT for ongoing strengthening
[2017-05-06] MEDS: LABETALOL 100mg/20ml INJECTION IVP PRN (20:53)
[2017-05-06] MEDS: DENTAL PASTE DT SCH (22:15)
[2017-05-06] MEDS: TRIAMCINOLONE 0.1% DT SCH (22:15)
[2017-05-06] MEDS: PRAVASTATIN 40 MG TABLET PO SCH (22:17)
[2017-05-07] MEDS: AZTREONAM 1 G in NS 100 ML IV SCH ×3 (06:11→22:16)
[2017-05-07] MEDS: LEVOTHYROXINE 125 MCG TABLET PO SCH (06:12)
[2017-05-07] MEDS: PREGABALIN 150 MG CAPSULE PO SCH ×2 (08:51→22:13)
[2017-05-07] MEDS: TRIAMCINOLONE 0.1% DT SCH ×3 (08:51→22:14)
[2017-05-07] MEDS: DENTAL PASTE DT SCH ×3 (08:51→22:14)
[2017-05-07] MEDS: DULOXETINE 60 MG CAPSULE PO SCH ×2 (08:51→22:13)
[2017-05-07] MEDS: APIXABAN 5 MG TABLET PO SCH ×2 (08:51→22:12)
[2017-05-07] MEDS: CALCIUM 600 + VIT D 400 TABLET PO SCH (08:51)
[2017-05-07] MEDS: LOSARTAN PO SCH (08:53)
[2017-05-07] MEDS: HCTZ PO SCH (08:53)
[2017-05-07] MEDS: PANTOPRAZOLE 40 MG TABLET PO SCH (08:53)
[2017-05-07] MEDS: NIFEREX FORTE 150 CAPSULE PO SCH (08:53)
[2017-05-07] MEDS ORDERED: FUROSEMIDE 20 MG/2 ML INJECTION IVP ONE (09:14)
--- NOTE | 2017-05-07 10:47 | IRU Progress Note ---
- Subjective/Serverity of Illness Complains of multiple issues today. She is more tired than she was yesterday. However did not sleep last night. Uncertain why. No particular orthopnea and no pain. Did have some tea yesterday that she wonders if that may have played a role. In addition and perhaps more significantly, she complains of shortness of breath. States that this is somewhat new for her. Denies any chest pain. Does have history of atrial fibrillation since November and is on Eliquis so it is less likely to be pulmonary embolus. Was admitted with sepsis and bacteremia secondary to a UTI. Did have atrial fibrillation with rapid ventricular response at the time of admission. In addition, she was on losartan/HCTZ at home. This was held due to her hypotension. We did restart the losartan yesterday but we have not restarted the diuretic yet. Our plan will be to do a chest x-ray, check her weight and possibly reinstitute some diuresis. I will also discuss with the hospitalist service. Exam Vital Signs: Temperature 97.5 F 05/07/17 08:35 Pulse Rate 84 05/07/17 10:25 Respiratory Rate 20 05/07/17 08:35 Blood Pressure 139/104 H 05/07/17 10:25 Pulse Oximetry 93 05/07/17 08:35 Oxygen Delivery Method Room Air Height: 1.63 m Weight: 148 kg Body Mass Index: 56.0 - Constitutional Present: mild distress - Routine HEENT Exam Head: Present: normocephalic Eye: Present: EOMI ENT: Present: mucous membranes moist - Routine Neck Exam Present: supple - Routine Respiratory Exam Present: crackles - Routine Cardiovascular Exam Present: irregularly irregular - Routine Abdominal Exam Present: soft, normoactive bowel sounds, non distended, non tender - Routine Extremities Exam Present: no edema - Routine Neurological Exam Present: alert, oriented X3, CN II-XII intact - Routine Psychiatric Exam Present: normal affect, anxious Sepsis Assessment - Evaluation Sepsis screening result: No Definite Risk IRU A/P (1) UTI (urinary tract infection) Qualifiers: Urinary tract infection type: acute cystitis Hematuria presence: without hematuria Qualified Code(s): N30.00 - Acute cystitis without hematuria Current visit: No Status: Acute Patient remains on aztreonam every 8 hours intravenously for her UTI. She is intolerant to numerous oral agents apparently. (2) Asthenia Current visit: No Status: Acute Her weakness is a bit worse today. Does complain of dyspnea as will be described subsequently. (3) Atrial fibrillation with RVR Current visit: No Status: Acute Continues to have clinical evidence of atrial fibrillation but ventricular response appears to be controlled adequately. (4) Hypertension Qualifiers: Hypertension type: essential hypertension Qualified Code(s): I10 - Essential (primary) hypertension Current visit: Yes Status: Chronic Blood pressure had been previously. It is improved at the present time. We did restart losartan yesterday. (5) Myopathy Current visit: Yes Status: Acute Continues to demonstrate some weakness although she is improving. Her ambulatory ability is improved. I did observe her walk with a quad cane and she is doing actually reasonably well with that. (6) Dyspnea Qualifiers: Dyspnea type: dyspnea on exertion Qualified Code(s): R06.09 - Other forms of dyspnea Current visit: Yes Status: Acute Reports new onset of dyspnea over the last 24 hours. In addition did not sleep well last night. Her energy level is markedly reduced. We will reassess a weight today. Her dyspnea is far less likely to be related to pulmonary embolus in view of her use of Eliquis for her atrial fibrillation. I think she may have some crackles in we will check a chest x-ray in this regard. Likely she will need some more diuretic. I will discuss with the hospitalist service as well. She denies any chest pain so do not think this is an acute coronary issue. DVT Prophylaxis: Eliquis Resuscitation Status: Do Not Resuscitate - Course Hospital Course: Lance Davis MD: 05/06/17 10:55 Patient states that she is stronger Her blood pressures are running too high at 160 systolic. We will restart losartan 50 mg by itself without the hydrochlorothiazide. I reviewed her laboratory studies and feel this is safe. Her atrial fibrillation rate appears to be controlled. Her appetite is still reduced but improving. 05/07/17 10:50 Has new onset dyspnea without chest pain. Dyspnea is with exercise. No cough. Denies orthopnea. Appetite is improving Transfers and mobility is improved although she does have some reduced exercise tolerance. We will check a chest x-ray and wait and make further recommendations after discussing with hospitalists. - Interventions to Obtain Goals PT Treatment Plan: Balance/Proprioception, Functional Activities, Gait Training , Patient/Family Education, Therapeutic Exercise OT Treatment Plan: ADL (Basic Care), Balance Training, IADL, Pt./Family Education, Ther. Exercise for ADL
[2017-05-07] MEDS ORDERED: FALL RISK - PHARMACY CONSULT MC PRN (10:50)
--- NOTE | 2017-05-07 11:43 | XRay Report ---
INDICATION: dyspnea-? CHF PROCEDURE: CHEST 2-VIEWS UPRIGHT (PA & LAT) Encounter: Initial COMPARISON: April 29, 2017 Findings: There is increased opacity projecting over the lower thoracic spine seen on the lateral view. This is not easily localized on the frontal view. Slight blunting of the costophrenic angle suggesting trace effusions. Upper lung canas are clear. No pneumothorax. Heart size and mediastinal contours are stable. Pulmonary vascularity appears normal. Impression: Suggestion of lower lobe infiltrates could be due to atelectasis or pneumonia. .
--- NOTE | 2017-05-07 12:05 | Progress Note ---
Progress Note: I have reviewed the chest x-ray. Patient's weight is not necessarily increased. Also have discussed the case with Willow with the hospitalist service. Patient has received a single dose of Lasix. We will continue to monitor her. At this time I do not think she has evidence of underlying pneumonia.
--- NOTE | 2017-05-07 16:18 | Progress Note ---
<Willow Charles V - Last Filed: 05/07/17 16:07> Subjective: Kyung is seen seen today in follow up. She reports that she drank coffee late in the day. Last evening and had difficulty sleeping overnight. She reports that this morning she has felt short of breath at times seems to be worse with exertion. She denies chest pain or dizziness. She feels that her hands and feet are "puffy". Blood pressure has continued to be elevated and this morning was 139/104. She is voiding without difficulty and bowels are moving regularly. Weight has trended down 4 kilograms since admission. Objective Vital signs: Temperature 97.9 F 05/07/17 14:19 Pulse Rate 99 05/07/17 14:19 Respiratory Rate 16 05/07/17 14:19 Blood Pressure 132/93 H 05/07/17 14:19 Pulse Oximetry 92 05/07/17 14:19 Oxygen Delivery Method Room Air Weight: 144.8 kg - Constitutional Present: well nourished, well developed - Routine HEENT Exam Eye: Present: EOMI ENT: Present: mucous membranes moist, dentition normal - Routine Respiratory Exam Present: CTA bilaterally. Absent: wheezes - Routine Cardiovascular Exam Present: RRR. Absent: murmur - Routine Abdominal Exam Present: soft, normoactive bowel sounds, non distended. Absent: tenderness - Routine Extremities Exam Present: normal capillary refill - Routine Skin Exam Present: dry, warm - Routine Neurological Exam Present: alert, oriented X3, CN II-XII intact - Routine Lymphatic Exam Lymphatic: Absent: adenopathy - Routine Psychiatric Exam Present: normal affect Results - Labs CBC & Chem 7: 05/07/17 04:24 05/07/17 04:24 Microbiology Results: Microbiology 05/06/17 04:42 Peripheral/Iv Start Blood Culture - Preliminary No Growth After 1 Day 05/06/17 04:42 Peripheral/Iv Start Blood Culture - Preliminary No Growth After 1 Day Assessment and Plan (1) UTI (urinary tract infection) Current visit: No Status: Acute (2) Myopathy Current visit: Yes Status: Acute (3) Anemia Current visit: Yes Status: Acute (4) Atrial fibrillation Current visit: Yes Status: Chronic Chronic atrial fibrillation, currently rate controlled (5) Hypertension Current visit: Yes Status: Chronic (6) Chronic anticoagulation Current visit: Yes Status: Chronic (7) Osteoarthritis Current visit: Yes Status: Chronic (8) Obesity, morbid, BMI 50 or higher Current visit: Yes Status: Chronic (9) Peripheral neuropathy Current visit: Yes Status: Chronic Assessment and Plan: 05/07/17 Regarding Increased shortness of breath accompanied with feeling of extremity swelling. Will get patient a one-time dose of Lasix 20 milligrams IV. Chest Xray was obtained and did revel some possible lower lobe atelectasis. She has not had any episodes of hypoxia, fever or leukocytosis that would reveal an acute infectious process. Blood pressures do continue to be elevated. She was placed back on her home dose of Losartan/HCTZ 50/12.5 milligrams daily, this started this morning. We will continue to utilize metoprolol 50 mg twice a day. Continue with when necessary labetalol 10 milligrams IV as needed for sustained systolic blood pressure greater than 160. Nursing instruction given to hold this medication if pulse is less than 60. She does constinue on Aztreonam IV for bacteremia. This was started on 04/29. Will discuss further reagarding length of treatment with attending. Can likely change at time of discharge. Apthous ulcers noted to oral mucosa contine Triamcinolone dental past TID. Continue to encourage work with PT and OT for ongoing strengthening. Sepsis Assessment - Evaluation Sepsis screening result: No Definite Risk Hospital Course Summary Disclaimer: The visit summary below is not to be considered part of the above Progress Note. Hospital Course: 05/03/19- Inital Consult Agree with admission to inpatient rehabilitation under the care of Dr. Davis for ongoing strengthening. Patient has general fatigue and weakness secondary to the severity of her recent illness. She will continue on Aztreonam IV every 8 hours for treatment of bacteremia. Antibiotic therapy started on 04/29. She will likely require 10-14 days of treatment. Given positive blood cultures. Will recheck blood cultures tomorrow 05/06. Continue to monitor telemetry. Patient remains in atrial fibrillation which is chronic for her. Continue on metoprolol 50 twice a day as she is currently rate controlled. Continue on chronic anticoagulation. Eliquis was 2.5 milligrams twice a day. Will continue to follow routine blood counts given anemia. Likely related to an acute sepsis, as well as history of breast cancer SHELIA- creatinine does continue to trend down, 1.3 today. Lasix does remain on hold. Will continue to monitor for evidence of edema or fluid overload. Will likely be able to resume Lasix at time of discharge. Overall patient appears to be medically stable. Protonix daily for GI protection. Eliquis and SCDs for DVT prophylaxis The hospitalist services will continue to follow patient medical manage during their stay on the rehabilitation unit. At time of discharge medical care will return to primary care provider Dr Haque 05/06/17 Patient has continued to have episodes of hypertension. Did review her previous home medication list. Place patient back on her losartan/HCTZ 50/12.5 milligrams daily. Will continue to utilize metoprolol 50 mg twice a day. Continue with when necessary labetalol 10 milligrams IV as needed for sustained systolic blood pressure greater than 160. Nursing instruction given to hold this medication if pulse is less than 60. Repeat blood cultures were obtained on 05/06. Will continue on Aztreonam IV. Was started on 04/29. Will discuss further reagarding length of treatment with attending. Can likely change at time of discharge. Apthous ulcers noted to oral mucosa. Will initate Triamcinolone dental past TID. Recehck [facility] tomorrow to follow renal function Continue to encourage work with PT and OT for ongoing strengthening 05/07/17 Regarding Increased shortness of breath accompanied with feeling of extremity swelling. Will get patient a one-time dose of Lasix 20 milligrams IV. Chest Xray was obtained and did revel some possible lower lobe atelectasis. She has not had any episodes of hypoxia, fever or leukocytosis that would reveal an acute infectious process. Blood pressures do continue to be elevated. She was placed back on her home dose of Losartan/HCTZ 50/12.5 milligrams daily, this started this morning. We will continue to utilize metoprolol 50 mg twice a day. Continue with when necessary labetalol 10 milligrams IV as needed for sustained systolic blood pressure greater than 160. Nursing instruction given to hold this medication if pulse is less than 60. She does constinue on Aztreonam IV for bacteremia. This was started on 04/29. Will discuss further reagarding length of treatment with attending. Can likely change at time of discharge. Apthous ulcers noted to oral mucosa contine Triamcinolone dental past TID. Continue to encourage work with PT and OT for ongoing strengthening. <SariIsela L - Last Filed: 05/07/17 19:32> Objective Vital signs: Temperature 97.6 F 05/07/17 16:00 Pulse Rate 90 05/07/17 16:00 Respiratory Rate 16 05/07/17 16:00 Blood Pressure 158/93 H 05/07/17 16:00 Pulse Oximetry 94 05/07/17 16:00 Oxygen Delivery Method Room Air Results - Labs CBC & Chem 7: 05/07/17 04:24 05/07/17 04:24 Microbiology Results: Microbiology 05/06/17 04:42 Peripheral/Iv Start Blood Culture - Preliminary No Growth After 1 Day 05/06/17 04:42 Peripheral/Iv Start Blood Culture - Preliminary No Growth After 1 Day Assessment and Plan (1) UTI (urinary tract infection) Problem details: Escherichia coli with bacteremia, sensitive to all tested antibiotics except Bactrim. Current visit: No Status: Acute (2) Myopathy Current visit: Yes Status: Acute (3) Anemia Current visit: Yes Status: Acute (4) Atrial fibrillation Current visit: Yes Status: Chronic (5) Hypertension Current visit: Yes Status: Chronic (6) Chronic anticoagulation Current visit: Yes Status: Chronic (7) Osteoarthritis Current visit: Yes Status: Chronic (8) Obesity, morbid, BMI 50 or higher Current visit: Yes Status: Chronic (9) Peripheral neuropathy Current visit: Yes Status: Chronic Assessment and Plan: I have independently evaluated and examined this patient. I reviewed the chart, the patient's history, and the HAND STRIPPER/PA's documented findings as above. We discussed and formulated the assessment and plan as above with additions as below: Mrs. Morales reports minor exertional dyspnea and feeling puffy. She received a dose of Lasix earlier today which has helped somewhat. Recent results reviewed, blood pressures remain modestly high with low-grade tachycardia. Patient is alert with fluent speech. Respirations nonlabored with good airflow, breath sounds clear. Irregular rhythm Trace edema. Chest x-ray reviewed-NAD, no heart failure. Aztreonam can be discontinued at discharge next week provided blood cultures drawn yesterday remain negative. If blood pressure remains elevated following diuresis would increase metoprolol dose further. Hospital Course Summary Disclaimer: The visit summary below is not to be considered part of the above Progress Note.
[2017-05-07] MEDS: LABETALOL 100mg/20ml INJECTION IVP PRN (19:55)
[2017-05-07] MEDS: PRAVASTATIN 40 MG TABLET PO SCH (22:13)
[2017-05-08] MEDS: AZTREONAM 1 G in NS 100 ML IV SCH ×3 (06:07→21:56)
[2017-05-08] MEDS: LEVOTHYROXINE 125 MCG TABLET PO SCH (06:11)
[2017-05-08] MEDS: HYDROCODONE/APAP 7.5 MG/325 MG TABLET PO PRN ×2 (06:11→16:00)
[2017-05-08] MEDS: PANTOPRAZOLE 40 MG TABLET PO SCH ×2 (06:12→08:26)
[2017-05-08] MEDS: HCTZ PO SCH (08:25)
[2017-05-08] MEDS: DENTAL PASTE DT SCH ×3 (08:25→22:09)
[2017-05-08] MEDS: CALCIUM 600 + VIT D 400 TABLET PO SCH (08:25)
[2017-05-08] MEDS: LOSARTAN PO SCH (08:25)
[2017-05-08] MEDS: TRIAMCINOLONE 0.1% DT SCH ×3 (08:25→22:09)
[2017-05-08] MEDS: APIXABAN 5 MG TABLET PO SCH ×2 (08:25→21:55)
[2017-05-08] MEDS: PREGABALIN 150 MG CAPSULE PO SCH ×2 (08:25→21:55)
[2017-05-08] MEDS: NIFEREX FORTE 150 CAPSULE PO SCH (08:26)
[2017-05-08] MEDS: DULOXETINE 60 MG CAPSULE PO SCH ×2 (09:56→21:55)
[2017-05-08] MEDS ORDERED: ALBUTEROL 2.5mg/3ml (0.083%) NEB AEROSOL PRN (16:20)
--- NOTE | 2017-05-08 16:34 | Progress Note ---
Subjective: Kyung is seen today in follow up. She is still struggling with some SOA and LENZ. She did require oxygen last night during sleep. Reports that SOA and oxygen use are not normal for her. She does have a recent hx of Atrial Fib; Has been on Eliquis. Denies known hx of CHF. Has been seen by Dr. King Wynne. She reports that she does struggle with peripheral neuropathy- since on Lyrica and Cymbalta, she has gained about 50 pounds. Prior to that, she was on Amitriptyline and Gabapentin, which was not as effective. She states etiology of her neuropathy is unclear. She reports her normal weight prior to hospitalization is around 290lbs. I did review her chart. Echo in Nov 2016, EF 60%. Current echo shows EF 40-45% . Objective Vital signs: Temperature 97.6 F 05/08/17 08:00 Pulse Rate 93 05/08/17 14:00 Respiratory Rate 16 05/08/17 08:00 Blood Pressure 167/79 H 05/08/17 14:00 Pulse Oximetry 93 05/08/17 10:05 Oxygen Delivery Method Room Air Oxygen Flow Rate 1 Rhythm: Atrial Fibrillation with Normal Ventricular Rate Weight: 144.9 kg - Constitutional Present: no acute distress, morbidly obese Comments: Pale, mildly SOA at rest. - Routine HEENT Exam Head: Present: normocephalic, atraumatic Eye: Present: EOMI, PERRL, normal accommodation. Absent: conjunctival icterus ENT: Present: mucous membranes moist - Routine Respiratory Exam Present: dyspnea (mild @ rest. ), decreased breath sounds, crackles (In bases.) , diminished air movement. Absent: wheezes - Routine Cardiovascular Exam Present: S1, S2, no murmur, irregularly irregular - Routine Abdominal Exam Present: soft, normoactive bowel sounds, non distended, non tender - Routine Extremities Exam Present: edema (3+ LE edema), non tender - Routine Skin Exam Present: dry, warm Comments: Mildly pale. - Routine Neurological Exam Present: alert, oriented X3, moving all extremities - Routine Psychiatric Exam Present: normal affect, cooperative, good insight, good judgment Results - Labs CBC & Chem 7: 05/08/17 04:41 05/08/17 04:41 Microbiology Results: Microbiology 05/06/17 04:42 Peripheral/Iv Start Blood Culture - Preliminary No Growth After 2 Days 05/06/17 04:42 Peripheral/Iv Start Blood Culture - Preliminary No Growth After 2 Days - Impressions I have reviewed imaging, cardiac records, labs and documentation during this visit. Assessment and Plan (1) UTI (urinary tract infection) Problem details: Escherichia coli with bacteremia, sensitive to all tested antibiotics except Bactrim. Current visit: No Status: Acute (2) Myopathy Current visit: Yes Status: Acute (3) Anemia Current visit: Yes Status: Acute (4) Atrial fibrillation Current visit: Yes Status: Chronic Chronic atrial fibrillation, currently rate controlled (5) Hypertension Current visit: Yes Status: Chronic (6) Chronic anticoagulation Current visit: Yes Status: Chronic (7) Osteoarthritis Current visit: Yes Status: Chronic (8) Obesity, morbid, BMI 50 or higher Current visit: Yes Status: Chronic (9) Peripheral neuropathy Current visit: Yes Status: Chronic (10) HFrEF (heart failure with reduced ejection fraction) Current visit: Yes Status: Acute (11) NYHA Class III cardiovascular function Current visit: Yes Status: Acute DVT Prophylaxis: Eliquis GI Prophylaxis: Protonix Resuscitation Status: Do Not Resuscitate Assessment and Plan: 05/08/17- *E.Coli UTI with bacteremia- Aztreonam D#10. Will DC after today's doses and monitor. If fever, we could consider using Amoxil. F/U BC done on 05/06 were negative. *Atrial Fib with RVR *HFrEF, Class III; Acute respiratory failure; Uncontrolled HTN; SHELIA HR is fairly well controlled on Metoprolol 50mg BID. We may need to increase beta-sola dosing. We need to aggressively diurese- she is up about 20 lbs still and appears fluid overloaded. Will add BID Bumex. Stop HCTZ. BP is running quite high- finally some improvement post clonidine. Increase Losartan to 100mg Q day. Monitor renal function and KCl with increase in ARB, diuresis. Change IV beta-sola to PRN clonidine for now. Pt. remains on Eliquis- we discussed some cost savings options for her medications. *Peripheral neuropathy- Continue Cymbalta/Lyrica *Anemia, Hx. of GI ulcer- Need to closely monitor on the Eliquis. Continue PO PPI for GI protection. Assess B12 and Folate given peripheral neuropathy sx. Diurese. Patient continues medically complex. Will repeat labs in AM, continue to follow closely. Sepsis Assessment - Evaluation Sepsis screening result: No Definite Risk Hospital Course Summary Disclaimer: The visit summary below is not to be considered part of the above Progress Note. Hospital Course: 05/03/19- Inital Consult Agree with admission to inpatient rehabilitation under the care of Dr. Davis for ongoing strengthening. Patient has general fatigue and weakness secondary to the severity of her recent illness. She will continue on Aztreonam IV every 8 hours for treatment of bacteremia. Antibiotic therapy started on 04/29. She will likely require 10-14 days of treatment. Given positive blood cultures. Will recheck blood cultures tomorrow 05/06. Continue to monitor telemetry. Patient remains in atrial fibrillation which is chronic for her. Continue on metoprolol 50 twice a day as she is currently rate controlled. Continue on chronic anticoagulation. Eliquis was 2.5 milligrams twice a day. Will continue to follow routine blood counts given anemia. Likely related to an acute sepsis, as well as history of breast cancer SHELIA- creatinine does continue to trend down, 1.3 today. Lasix does remain on hold. Will continue to monitor for evidence of edema or fluid overload. Will likely be able to resume Lasix at time of discharge. Overall patient appears to be medically stable. Protonix daily for GI protection. Eliquis and SCDs for DVT prophylaxis The hospitalist services will continue to follow patient medical manage during their stay on the rehabilitation unit. At time of discharge medical care will return to primary care provider Dr Haque 05/06/17 Patient has continued to have episodes of hypertension. Did review her previous home medication list. Place patient back on her losartan/HCTZ 50/12.5 milligrams daily. Will continue to utilize metoprolol 50 mg twice a day. Continue with when necessary labetalol 10 milligrams IV as needed for sustained systolic blood pressure greater than 160. Nursing instruction given to hold this medication if pulse is less than 60. Repeat blood cultures were obtained on 05/06. Will continue on Aztreonam IV. Was started on 04/29. Will discuss further reagarding length of treatment with attending. Can likely change at time of discharge. Apthous ulcers noted to oral mucosa. Will initate Triamcinolone dental past TID. Recehck [facility] tomorrow to follow renal function Continue to encourage work with PT and OT for ongoing strengthening 05/07/17 Regarding Increased shortness of breath accompanied with feeling of extremity swelling. Will get patient a one-time dose of Lasix 20 milligrams IV. Chest Xray was obtained and did revel some possible lower lobe atelectasis. She has not had any episodes of hypoxia, fever or leukocytosis that would reveal an acute infectious process. Blood pressures do continue to be elevated. She was placed back on her home dose of Losartan/HCTZ 50/12.5 milligrams daily, this started this morning. We will continue to utilize metoprolol 50 mg twice a day. Continue with when necessary labetalol 10 milligrams IV as needed for sustained systolic blood pressure greater than 160. Nursing instruction given to hold this medication if pulse is less than 60. She does constinue on Aztreonam IV for bacteremia. This was started on 04/29. Will discuss further reagarding length of treatment with attending. Can likely change at time of discharge. Apthous ulcers noted to oral mucosa contine Triamcinolone dental past TID. Continue to encourage work with PT and OT for ongoing strengthening. 05/08/17 16:44 *E.Coli UTI with bacteremia- Aztreonam D#10. Will DC after today's doses and monitor. If fever, we could consider using Amoxil. F/U BC done on 05/06 were negative. *Atrial Fib with RVR *HFrEF, Class III; Acute respiratory failure; Uncontrolled HTN; SHELIA HR is fairly well controlled on Metoprolol 50mg BID. We may need to increase beta-sola dosing. We need to aggressively diurese- she is up about 20 lbs still and appears fluid overloaded. Will add BID Bumex. Stop HCTZ. BP is running quite high- finally some improvement post clonidine. Increase Losartan to 100mg Q day. Monitor renal function and KCl with increase in ARB, diuresis. Change IV beta-sola to PRN clonidine for now. Pt. remains on Eliquis- we discussed some cost savings options for her medications. *Peripheral neuropathy- Continue Cymbalta/Lyrica *Anemia, Hx. of GI ulcer- Need to closely monitor on the Eliquis. Continue PO PPI for GI protection. Assess B12 and Folate given peripheral neuropathy sx. Diurese.
[2017-05-08] MEDS: BUMETANIDE 0.5 MG TABLET PO SCH (18:48)
[2017-05-08] MEDS: PRAVASTATIN 40 MG TABLET PO SCH (21:56)
[2017-05-09] MEDS: AZTREONAM 1 G in NS 100 ML IV SCH (05:34)
[2017-05-09] MEDS: LEVOTHYROXINE 125 MCG TABLET PO SCH (05:36)
[2017-05-09] MEDS: HYDROCODONE/APAP 7.5 MG/325 MG TABLET PO PRN (05:44)
[2017-05-09] MEDS: PANTOPRAZOLE 40 MG TABLET PO SCH (08:43)
[2017-05-09] MEDS: BUMETANIDE 1 MG TABLET PO SCH (08:43)
[2017-05-09] MEDS: CALCIUM 600 + VIT D 400 TABLET PO SCH (08:43)
[2017-05-09] MEDS: PREGABALIN 150 MG CAPSULE PO SCH ×2 (08:45→21:48)
[2017-05-09] MEDS: DULOXETINE 60 MG CAPSULE PO SCH ×2 (08:45→21:49)
[2017-05-09] MEDS: DENTAL PASTE DT SCH ×3 (08:46→21:49)
[2017-05-09] MEDS: APIXABAN 5 MG TABLET PO SCH ×2 (08:46→21:49)
[2017-05-09] MEDS: TRIAMCINOLONE 0.1% DT SCH ×3 (08:46→21:49)
[2017-05-09] MEDS: NIFEREX FORTE 150 CAPSULE PO SCH (08:49)
[2017-05-09] MEDS: LOSARTAN 100 MG TABLET PO SCH (08:49)
[2017-05-09] MEDS ORDERED: FALL RISK - PHARMACY CONSULT XX ONE (10:46)
[2017-05-09] MEDS: BUMETANIDE 0.5 MG TABLET PO SCH (15:26)
[2017-05-09] MEDS: PRAVASTATIN 40 MG TABLET PO SCH (21:48)
[2017-05-10] MEDS: LEVOTHYROXINE 125 MCG TABLET PO SCH (06:16)
[2017-05-10] MEDS: PREGABALIN 150 MG CAPSULE PO SCH ×2 (09:13→21:23)
[2017-05-10] MEDS: APIXABAN 5 MG TABLET PO SCH ×2 (09:14→21:22)
[2017-05-10] MEDS: NIFEREX FORTE 150 CAPSULE PO SCH (09:14)
[2017-05-10] MEDS: DULOXETINE 60 MG CAPSULE PO SCH ×2 (09:14→21:24)
[2017-05-10] MEDS: BUMETANIDE 1 MG TABLET PO SCH (09:14)
[2017-05-10] MEDS: CALCIUM 600 + VIT D 400 TABLET PO SCH (09:14)
[2017-05-10] MEDS: LOSARTAN 100 MG TABLET PO SCH (09:14)
[2017-05-10] MEDS: PANTOPRAZOLE 40 MG TABLET PO SCH (09:15)
[2017-05-10] MEDS: TRIAMCINOLONE 0.1% DT SCH ×3 (09:18→21:21)
[2017-05-10] MEDS: DENTAL PASTE DT SCH ×3 (09:18→21:21)
--- NOTE | 2017-05-10 09:32 | IRU Progress Note ---
- Subjective/Serverity of Illness Kyung feels much better this morning. Her weight is down from 144 -->142 --> 137. She has been started on Bumex. Her breathing is much improved. Her energy level is better. She wonders why she is still on the telemetry. She was on the post acute care because of her atrial fibrillation with rapid ventricular response. She has been stable so we will discontinue that. She is improving with therapies. She states that she can transfer independently. She does walk with a cane when she is out and about but not home. Aztreonam has been discontinued. We discussed her oxygen situation. She did require oxygen on the acute side. She may require overnight oximetry prior to dismissal. We will reassess her status at team meeting tomorrow and then consider ordering the overnight oximetry if indicated. I appreciate hospitalists assistance with her care. Exam Vital Signs: Temperature 98.7 F 05/10/17 08:29 Pulse Rate 97 05/10/17 08:29 Respiratory Rate 16 05/10/17 08:29 Blood Pressure 151/97 H 05/10/17 08:29 Pulse Oximetry 93 05/10/17 08:39 Oxygen Delivery Method Room Air Oxygen Flow Rate 1 Telemetry Rhythm: A-fib Height: 1.63 m Weight: 137.8 kg Body Mass Index: 56.0 Comments: Her weight is down with diuresis. Telemetry demonstrates atrial fibrillation. Typically in the 60s to 70s but when ambulating due to pain of the low 100s. - Constitutional Present: no acute distress - Routine HEENT Exam Head: Present: normocephalic Eye: Present: EOMI ENT: Present: mucous membranes moist - Routine Neck Exam Present: supple - Routine Respiratory Exam Present: CTA bilaterally - Routine Cardiovascular Exam Present: S1, S2, irregularly irregular - Routine Abdominal Exam Present: soft, non distended, non tender - Routine Extremities Exam Present: edema - Routine Skin Exam Present: intact. Absent: erythema - Routine Neurological Exam Present: alert, oriented X3. Absent: altered mental status - Routine Psychiatric Exam Present: normal affect, normal thought process, cooperative, good insight, good judgment Results IRU - Labs Labs: Repeat blood cultures have been negative. Sepsis Assessment - Evaluation Sepsis screening result: No Definite Risk IRU A/P (1) UTI (urinary tract infection) Qualifiers: Urinary tract infection type: acute cystitis Hematuria presence: without hematuria Qualified Code(s): N30.00 - Acute cystitis without hematuria Problem details: Escherichia coli with bacteremia, sensitive to all tested antibiotics except Bactrim. Current visit: No Status: Resolved Aztreonam has been discontinued. Monitoring for temperature elevation. Seems to be asymptomatic and doing well. (2) Asthenia Current visit: No Status: Acute She is improving with regard to her strength. She is able to transfer independently. (3) Atrial fibrillation with RVR Current visit: No Status: Acute Atrial fibrillation seems to be in general well controlled. She is on Eliquis. (4) Hypertension Qualifiers: Hypertension type: essential hypertension Qualified Code(s): I10 - Essential (primary) hypertension Current visit: Yes Status: Chronic Blood pressure is improved but she continues to have elevation of pressures off and on. Appreciate hospitalists input with regard to medication management. 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 (6) Dyspnea Qualifiers: Dyspnea type: dyspnea on exertion Qualified Code(s): R06.09 - Other forms of dyspnea Current visit: Yes Status: Acute Dyspnea is markedly improved after diuresis. Her weight is down from 144 to 137 pounds. (7) HFrEF (heart failure with reduced ejection fraction) Qualifiers: Heart failure chronicity: acute on chronic Qualified Code(s): I50.23 - Acute on chronic systolic (congestive) heart failure Current visit: Yes Status: Acute She does have demonstrated heart failure with reduced ejection fraction at 40-45 %. She is sensitive to fluid increases. Continue diuresis per hospitalists. She is on an ARB. She remains medically complex. Her heart failure is impacting her therapy. She continues to require a multidisciplinary approach to her care. Reevaluate her tomorrow with decision on dismissal thereafter. DVT Prophylaxis: Eliquis Resuscitation Status: Do Not Resuscitate - Course Hospital Course: Lance Davis MD: 05/06/17 10:55 Patient states that she is stronger Her blood pressures are running too high at 160 systolic. We will restart losartan 50 mg by itself without the hydrochlorothiazide. I reviewed her laboratory studies and feel this is safe. Her atrial fibrillation rate appears to be controlled. Her appetite is still reduced but improving. 05/07/17 10:50 Has new onset dyspnea without chest pain. Dyspnea is with exercise. No cough. Denies orthopnea. Appetite is improving Transfers and mobility is improved although she does have some reduced exercise tolerance. We will check a chest x-ray and wait and make further recommendations after discussing with hospitalists. 05/10/17 09:37 Her dyspnea is improved after diuresis. Her weight is down 7 pounds. Does have heart failure with reduced ejection fraction at 4045 percent. Transfers and mobility are improved. Continues to have some reduced exercise tolerance but things are improving. Does have history of hypoxemia. Prior to dismissal we will likely need to do overnight oximetry. Plan to assess her tomorrow at team meeting. - Interventions to Obtain Goals PT Treatment Plan: Balance/Proprioception, Functional Activities, Gait Training , Patient/Family Education, Therapeutic Exercise OT Treatment Plan: ADL (Basic Care), Balance Training, IADL, Pt./Family Education, Ther. Exercise for ADL
[2017-05-10] MEDS ORDERED: acetaZOLAMIDE 250 MG TABLET PO ONE (09:49)
[2017-05-10] MEDS: BUMETANIDE 0.5 MG TABLET PO SCH (16:27)
[2017-05-10] MEDS: HYDROCODONE/APAP 7.5 MG/325 MG TABLET PO PRN (16:29)
[2017-05-10] MEDS: PRAVASTATIN 40 MG TABLET PO SCH (21:24)
[2017-05-11] MEDS: LEVOTHYROXINE 125 MCG TABLET PO SCH (05:51)
[2017-05-11] MEDS: HYDROCODONE/APAP 7.5 MG/325 MG TABLET PO PRN ×2 (07:16→15:10)
[2017-05-11] MEDS: NIFEREX FORTE 150 CAPSULE PO SCH (08:40)
[2017-05-11] MEDS: LOSARTAN 100 MG TABLET PO SCH (08:40)
[2017-05-11] MEDS: PREGABALIN 150 MG CAPSULE PO SCH ×2 (08:41→21:11)
[2017-05-11] MEDS: CALCIUM 600 + VIT D 400 TABLET PO SCH (08:41)
[2017-05-11] MEDS: DULOXETINE 60 MG CAPSULE PO SCH ×2 (08:41→21:11)
[2017-05-11] MEDS: APIXABAN 5 MG TABLET PO SCH ×2 (08:41→21:10)
[2017-05-11] MEDS: PANTOPRAZOLE 40 MG TABLET PO SCH (08:41)
[2017-05-11] MEDS: BUMETANIDE 1 MG TABLET PO SCH (08:42)
[2017-05-11] MEDS: TRIAMCINOLONE 0.1% DT SCH ×3 (10:38→21:16)
[2017-05-11] MEDS: DENTAL PASTE DT SCH ×3 (10:38→21:16)
--- NOTE | 2017-05-11 11:12 | IRU Progress Note ---
- Subjective/Serverity of Illness Kyung states that she is feeling stronger although does have easy fatigability. Part of that may be the diuresis she believes. However, overall she is breathing much better and has less dyspnea. She reports that her appetite is good. Bowels are moving adequately. She was diagnosed previously with UTI with sepsis. She does not have any urinary symptoms. Denies any dysuria. I did advise her that she does need to urinate and empty out frequently to avoid further infections if possible. She states that she is nearing independence. She does have concerns about exercise tolerance. She wondered about home health when she goes home. Exam Vital Signs: Temperature 98.2 F 05/11/17 08:00 Pulse Rate 64 05/11/17 10:36 Respiratory Rate 18 05/11/17 08:00 Blood Pressure 134/78 05/11/17 08:00 Pulse Oximetry 91 05/11/17 08:00 Oxygen Delivery Method Room Air Oxygen Flow Rate 1 Height: 1.63 m Weight: 133.2 kg Body Mass Index: 56.0 - Constitutional Present: no acute distress, morbidly obese, cooperative Comments: The patient is awake, alert and oriented and in no acute distress. Pupils are equal. The neck is supple. Chest: Clear to auscultation bilaterally. Cor: irregular rhythm with shannon, click nor murmur Abd: soft with normo-active bowel sounds. There are no masses, no tenderness and no guarding. Extremities: No edema is noted. No cyanosis is present. - Routine HEENT Exam Head: Present: normocephalic Eye: Present: EOMI - Routine Respiratory Exam Present: CTA bilaterally - Routine Cardiovascular Exam Present: no murmur, irregularly irregular - Routine Abdominal Exam Present: soft, normoactive bowel sounds, non distended, non tender - Routine Extremities Exam Present: no edema - Routine Neurological Exam Present: alert, oriented X3, CN II-XII intact - Routine Psychiatric Exam Present: normal affect, normal thought process, cooperative, good insight, good judgment. Absent: depressed, anxious Sepsis Assessment - Evaluation Sepsis screening result: No Definite Risk IRU A/P (1) Asthenia Current visit: No Status: Acute Her weakness is improving but still has easy fatigability. (2) Atrial fibrillation with RVR Current visit: No Status: Acute Her heart rate continues to increase at times with activity. Denies any chest pain. Her breathing is doing much better. She remains in chronic atrial fibrillation and is on Eliquis. No evidence of active bleeding. Does have anemia. (3) Hypertension Qualifiers: Hypertension type: essential hypertension Qualified Code(s): I10 - Essential (primary) hypertension Current visit: Yes Status: Chronic Her blood pressure remains variable. At times it is up to 159/101. At times it is back to normal. She remains on antihypertensives.. (4) Myopathy Current visit: Yes Status: Resolved Her disuse myopathy has improved. Strength is good. She is transferring well. She is able to ambulate. (5) Dyspnea Qualifiers: Dyspnea type: dyspnea on exertion Qualified Code(s): R06.09 - Other forms of dyspnea Current visit: Yes Status: Acute (6) HFrEF (heart failure with reduced ejection fraction) Qualifiers: Heart failure chronicity: acute on chronic Qualified Code(s): I50.23 - Acute on chronic systolic (congestive) heart failure Current visit: Yes Status: Acute Her heart failure is compensated at present. She has diuresed nicely. She is improved with regard to her dyspnea. DVT Prophylaxis: Eliquis Resuscitation Status: Do Not Resuscitate - Course Hospital Course: Lance Davis MD: 05/06/17 10:55 Patient states that she is stronger Her blood pressures are running too high at 160 systolic. We will restart losartan 50 mg by itself without the hydrochlorothiazide. I reviewed her laboratory studies and feel this is safe. Her atrial fibrillation rate appears to be controlled. Her appetite is still reduced but improving. 05/07/17 10:50 Has new onset dyspnea without chest pain. Dyspnea is with exercise. No cough. Denies orthopnea. Appetite is improving Transfers and mobility is improved although she does have some reduced exercise tolerance. We will check a chest x-ray and wait and make further recommendations after discussing with hospitalists. 05/10/17 09:37 Her dyspnea is improved after diuresis. Her weight is down 7 pounds. Does have heart failure with reduced ejection fraction at 4045 percent. Transfers and mobility are improved. Continues to have some reduced exercise tolerance but things are improving. Does have history of hypoxemia. Prior to dismissal we will likely need to do overnight oximetry. Plan to assess her tomorrow at team meeting. 07/25/17 11:13 She is progressing nicely with therapy. She does have easy fatigability Her heart failure with reduced ejection fraction is compensated. She will need to do overnight oximetry prior to returning home. No evidence of recurrence of UTI and her follow-up blood cultures are negative. We will reassess today at team meeting but I anticipate her going home sometime this week. - Interventions to Obtain Goals PT Treatment Plan: Balance/Proprioception, Functional Activities, Gait Training , Patient/Family Education, Therapeutic Exercise OT Treatment Plan: ADL (Basic Care), Balance Training, IADL, Pt./Family Education, Ther. Exercise for ADL
--- NOTE | 2017-05-11 13:06 | IRU Team Meeting ---
IRU Team Meeting - Nursing Vital Signs: Vital Signs - 24 hr 05/10/17 16:00 05/10/17 22:52 05/11/17 08:00 Temperature 98.3 F 98.6 F 98.2 F Pulse Rate 97 81 106 H Respiratory Rate 16 16 18 Blood Pressure 151/109 H 134/89 134/78 Pulse Oximetry 91 91 91 05/11/17 10:36 Temperature Pulse Rate 64 Respiratory Rate Blood Pressure Pulse Oximetry Current Medications: Acetaminophen (Tylenol) 500 mg PO Q5H PRN PRN Reason: Discomfort Last Admin: 05/11/17 11:11 Dose: 500 mg Acetaminophen/Hydrocodone Bitart ([place] 7.5/325) 1 - 2 tab PO Q6H PRN PRN Reason: Pain Last Admin: 05/11/17 07:16 Dose: 1 tab Albuterol Sulfate (Proventil Neb (0.083%)) 2.5 mg AEROSOL [id number] PRN Apixaban (Eliquis) 2.5 mg PO BID [facility] Last Admin: 05/11/17 08:41 Dose: 2.5 mg Bumetanide (Bumex) 1 mg PO DAILY [facility] Last Admin: 05/11/17 08:42 Dose: 1 mg Calcium/Vitamin D (Caltrate + D) 1 tab PO DAILY [facility] Last Admin: 05/11/17 08:41 Dose: 1 tab Cholecalciferol (Vit. D-3) 2,000 unit PO DAILY [facility] Last Admin: 05/11/17 08:41 Dose: 2,000 unit Clonidine HCl (Catapres) 0.1 mg PO Q6H PRN PRN Reason: Hypertension Last Admin: 05/10/17 16:29 Dose: 0.1 mg Duloxetine HCl (Cymbalta) 60 mg PO BID [facility] Last Admin: 05/11/17 08:41 Dose: 60 mg Folic Acid/Iron/Vitamin B12 (Niferex Forte) 1 cap PO DAILY [facility] Last Admin: 05/11/17 08:40 Dose: 1 cap Levothyroxine Sodium (Synthroid) 125 mcg PO ACB [facility] Last Admin: 05/11/17 05:51 Dose: 125 mcg Lidocaine (Lidoderm) 1 patch TOP DAILY PRN PRN Reason: Pain Lidocaine HCl/Dextrose (Lidoderm Patch Removal) 1 removal TOP 2100 PRN Losartan Potassium (Cozaar) 100 mg PO DAILY [facility] Last Admin: 05/11/17 08:40 Dose: 100 mg Metoprolol Tartrate (Lopressor) 100 mg PO BIDWM [facility] Last Admin: 05/11/17 08:40 Dose: 100 mg Pantoprazole Sodium (Protonix Tab) 40 mg PO DAILY [facility] Last Admin: 05/11/17 08:41 Dose: 40 mg Polyethylene Glycol (Miralax) 17 gm PO DAILY PRN PRN Reason: CONSTIPATION Potassium Chloride (K-Dur) 20 meq PO WB [facility] Last Admin: 05/11/17 08:41 Dose: 20 meq Pravastatin Sodium (Pravachol) 40 mg PO HS [facility] Last Admin: 05/10/17 21:24 Dose: 40 mg Pregabalin (Lyrica) 300 mg PO BID [facility] Last Admin: 05/11/17 08:41 Dose: 300 mg Sodium Chloride (Normal Saline) 500 ml IV PRN PRN Last Admin: 05/07/17 13:52 Dose: 500 ml Triamcinolone Acetonide (Kenalog 0.1% Orabase) 1 applic DT TID [facility] Last Admin: 05/11/17 10:38 Dose: Not Given Comments: Pt admitted after sepsis and UTI. Finished abx. Recently started potassium. Bumex increased to 1 mg daily. Meds adjusted for BP and HF. Hgb 9.4. (was 9.7). Creatinine stable at 1.3. Sugars noted. Maintained oxygen all night OK without supplementation. HR was a bit up. - Physical Therapy Sit to Stand Chair Transfer Ability: Modified Independent Stand to Sit Chair Transfer Ability: Modified Independent Comments: SBA with stairs, mod I with car transfers. Some excess fatigue and decreased endurance. Supervision with walking. - Occupational Therapy Eating Ability: Independent Grooming Ability: Modified Independent Bathing Ability: Modified Independent Upper Body Dressing Ability: Modified Independent Lower Body Dressing Ability: Modified Independent Lower Body Dressing Comment: Meeting goals for ADL's and iADLs. Safety OK. - Care Plan Anticipated Length of Stay: 2 Anticipated DC Destination: Home, Self Care, Home Health Service Interventions/Goals: Goals: Assess saturation of oxygen at night. Achieved 60 min of therapy goal. Met goals from last eval. Increase to MOD I with ambulation and with stairs. Barriers: oxygen requirements. Functional ability in general.
--- NOTE | 2017-05-11 15:30 | Progress Note ---
<Gila Bryan - Last Filed: 05/11/17 15:27> Subjective: Kyung feels like that she is slowly getting better. She is still very weak and tired, but has seen improvement. The swelling in her arms and legs has improved quite a bit. She is hopeful to be discharged home at the end of the week with home health. In addition, her sister will be coming from [place] to stay with her for a couple of days. One of her biggest setbacks to functional improvement as her neuropathic pain, which is currently rated 6/10. She denies any difficulty breathing, cough or chest discomfort. Her appetite has been excellent and she denies any abdominal pain or GI complaints. Objective Vital signs: Temperature 98.2 F 05/11/17 08:00 Pulse Rate 64 05/11/17 10:36 Respiratory Rate 18 05/11/17 08:00 Blood Pressure 134/78 05/11/17 08:00 Pulse Oximetry 91 05/11/17 08:00 Oxygen Delivery Method Room Air Oxygen Flow Rate 1 Body Mass Index: 56.0 - Constitutional Present: no acute distress, well nourished, well developed, obese - Routine HEENT Exam ENT: Present: mucous membranes moist, oropharynx clear - Routine Respiratory Exam Present: decreased breath sounds - Routine Cardiovascular Exam Present: irregularly irregular - Routine Abdominal Exam Present: soft, normoactive bowel sounds, non tender - Routine Extremities Exam Present: edema (1+ bilaterally), pulses intact, normal capillary refill. Absent : calf tenderness - Routine Musculoskeletal Exam Musculoskeletal: Present: no clubbing or cyanosis - Routine Skin Exam Present: intact, dry, warm - Routine Neurological Exam Present: alert, oriented X3 - Routine Psychiatric Exam Present: normal affect, normal thought process Results - Labs CBC & Chem 7: 05/11/17 04:04 05/11/17 04:04 Microbiology Results: Microbiology 05/06/17 04:42 Peripheral/Iv Start Blood Culture - Final No Growth After 5 Days 05/06/17 04:42 Peripheral/Iv Start Blood Culture - Final No Growth After 5 Days Assessment and Plan (1) UTI (urinary tract infection) Problem details: Escherichia coli with bacteremia, sensitive to all tested antibiotics except Bactrim. Current visit: No Status: Resolved (2) Myopathy Current visit: Yes Status: Resolved (3) Anemia Current visit: Yes Status: Acute (4) Atrial fibrillation Current visit: Yes Status: Chronic Chronic atrial fibrillation, currently rate controlled (5) Hypertension Current visit: Yes Status: Chronic (6) Chronic anticoagulation Current visit: Yes Status: Chronic (7) Osteoarthritis Current visit: Yes Status: Chronic (8) Obesity, morbid, BMI 50 or higher Current visit: Yes Status: Chronic (9) Peripheral neuropathy Current visit: Yes Status: Chronic (10) HFrEF (heart failure with reduced ejection fraction) Current visit: Yes Status: Acute (11) NYHA Class III cardiovascular function Current visit: Yes Status: Acute DVT Prophylaxis: Eliquis Resuscitation Status: Do Not Resuscitate Assessment and Plan: Escherichia coli bacteremia and UTI -Aztreonam course completed after 10 days. -afebrile; WBC normal HFrEF -decrease Bumex to 0.5 mg daily -weight trending down (admit on 04/29/17 was 136.5 kg; today 133 kg) -CO2 increased slightly (32 yesterday; 31 today) -used to take HCTZ; will need to determine which diuretic to DC her on; if CO2 continues to rise will likely resume HCTZ and stop Bumex HTN -improving -Losartan; Metoprolol; Bumex; Clonidine PRN Chronic A-fib -rate controlled on BB -continue Eliquis (monitor for bleeding - hx of GI ulcer) Lab F/U - B12 and folate were normal Sepsis Assessment - Evaluation Sepsis screening result: No Definite Risk Hospital Course Summary Disclaimer: The visit summary below is not to be considered part of the above Progress Note. Hospital Course: 05/03/19- Inital Consult Agree with admission to inpatient rehabilitation under the care of Dr. Davis for ongoing strengthening. Patient has general fatigue and weakness secondary to the severity of her recent illness. She will continue on Aztreonam IV every 8 hours for treatment of bacteremia. Antibiotic therapy started on 04/29. She will likely require 10-14 days of treatment. Given positive blood cultures. Will recheck blood cultures tomorrow 05/06. Continue to monitor telemetry. Patient remains in atrial fibrillation which is chronic for her. Continue on metoprolol 50 twice a day as she is currently rate controlled. Continue on chronic anticoagulation. Eliquis was 2.5 milligrams twice a day. Will continue to follow routine blood counts given anemia. Likely related to an acute sepsis, as well as history of breast cancer SHELIA- creatinine does continue to trend down, 1.3 today. Lasix does remain on hold. Will continue to monitor for evidence of edema or fluid overload. Will likely be able to resume Lasix at time of discharge. Overall patient appears to be medically stable. Protonix daily for GI protection. Eliquis and SCDs for DVT prophylaxis The hospitalist services will continue to follow patient medical manage during their stay on the rehabilitation unit. At time of discharge medical care will return to primary care provider Dr Haque 05/06/17 Patient has continued to have episodes of hypertension. Did review her previous home medication list. Place patient back on her losartan/HCTZ 50/12.5 milligrams daily. Will continue to utilize metoprolol 50 mg twice a day. Continue with when necessary labetalol 10 milligrams IV as needed for sustained systolic blood pressure greater than 160. Nursing instruction given to hold this medication if pulse is less than 60. Repeat blood cultures were obtained on 05/06. Will continue on Aztreonam IV. Was started on 04/29. Will discuss further reagarding length of treatment with attending. Can likely change at time of discharge. Apthous ulcers noted to oral mucosa. Will initate Triamcinolone dental past TID. Recehck [facility] tomorrow to follow renal function Continue to encourage work with PT and OT for ongoing strengthening 05/07/17 Regarding Increased shortness of breath accompanied with feeling of extremity swelling. Will get patient a one-time dose of Lasix 20 milligrams IV. Chest Xray was obtained and did revel some possible lower lobe atelectasis. She has not had any episodes of hypoxia, fever or leukocytosis that would reveal an acute infectious process. Blood pressures do continue to be elevated. She was placed back on her home dose of Losartan/HCTZ 50/12.5 milligrams daily, this started this morning. We will continue to utilize metoprolol 50 mg twice a day. Continue with when necessary labetalol 10 milligrams IV as needed for sustained systolic blood pressure greater than 160. Nursing instruction given to hold this medication if pulse is less than 60. She does constinue on Aztreonam IV for bacteremia. This was started on 04/29. Will discuss further reagarding length of treatment with attending. Can likely change at time of discharge. Apthous ulcers noted to oral mucosa contine Triamcinolone dental past TID. Continue to encourage work with PT and OT for ongoing strengthening. 05/08/17 16:44 *E.Coli UTI with bacteremia- Aztreonam D#10. Will DC after today's doses and monitor. If fever, we could consider using Amoxil. F/U BC done on 05/06 were negative. *Atrial Fib with RVR *HFrEF, Class III; Acute respiratory failure; Uncontrolled HTN; SHELIA HR is fairly well controlled on Metoprolol 50mg BID. We may need to increase beta-sola dosing. We need to aggressively diurese- she is up about 20 lbs still and appears fluid overloaded. Will add BID Bumex. Stop HCTZ. BP is running quite high- finally some improvement post clonidine. Increase Losartan to 100mg Q day. Monitor renal function and KCl with increase in ARB, diuresis. Change IV beta-sola to PRN clonidine for now. Pt. remains on Eliquis- we discussed some cost savings options for her medications. *Peripheral neuropathy- Continue Cymbalta/Lyrica *Anemia, Hx. of GI ulcer- Need to closely monitor on the Eliquis. Continue PO PPI for GI protection. Assess B12 and Folate given peripheral neuropathy sx. Diurese. 05/11/17 15:44 Escherichia coli bacteremia and UTI -Aztreonam course completed after 10 days. -afebrile; WBC normal HFrEF -decrease Bumex to 0.5 mg daily -weight trending down (admit on 04/29/17 was 136.5 kg; today 133 kg) -CO2 increased slightly (32 yesterday; 31 today) -used to take HCTZ; will need to determine which diuretic to DC her on; if CO2 continues to rise will likely resume HCTZ and stop Bumex HTN -improving -Losartan; Metoprolol; Bumex; Clonidine PRN Chronic A-fib -rate controlled on BB -continue Eliquis (monitor for bleeding - hx of GI ulcer) Lab F/U - B12 and folate were normal <Ben Munroe - Last Filed: 05/11/17 17:24> Objective Vital signs: Temperature 98.2 F 05/11/17 08:00 Pulse Rate 64 05/11/17 10:36 Respiratory Rate 18 05/11/17 08:00 Blood Pressure 134/78 05/11/17 08:00 Pulse Oximetry 91 05/11/17 08:00 Oxygen Delivery Method Room Air Oxygen Flow Rate 1 Results - Labs CBC & Chem 7: 05/11/17 04:04 05/11/17 04:04 Microbiology Results: Microbiology 05/06/17 04:42 Peripheral/Iv Start Blood Culture - Final No Growth After 5 Days 05/06/17 04:42 Peripheral/Iv Start Blood Culture - Final No Growth After 5 Days Assessment and Plan (1) HFrEF (heart failure with reduced ejection fraction) Current visit: Yes Status: Acute (2) NYHA Class III cardiovascular function Current visit: Yes Status: Acute (3) Atrial fibrillation Current visit: Yes Status: Chronic (4) UTI (urinary tract infection) Problem details: Escherichia coli with bacteremia, sensitive to all tested antibiotics except Bactrim. Current visit: No Status: Resolved (5) Myopathy Current visit: Yes Status: Resolved (6) Anemia Current visit: Yes Status: Acute (7) Hypertension Current visit: Yes Status: Chronic (8) Chronic anticoagulation Current visit: Yes Status: Chronic (9) Osteoarthritis Current visit: Yes Status: Chronic (10) Peripheral neuropathy Current visit: Yes Status: Chronic (11) Obesity, morbid, BMI 50 or higher Current visit: Yes Status: Chronic Assessment and Plan: Have independently interviewed and examined pt. Chart reviewed. Case discussed with my [employer]. Care plan developed with my supervision; agree with above. Feels like she is improving, getting stronger. Does note her neuropathy is still a significant limitation. Breathing has been improving. Breathing easier. Not needing O2. Happy about the amount of fluid moved off. Eating well. No f/c. Lungs: decreased, no crackles/wheezes/distress CV: irregularly irregular AB: soft obses, nt/nd BS decreased MSE: awake alert appropriate Plan: Bumex decreased-monitor lab (potassium may decrease tomorrow as today's lab markedly hemolysised and potassium normal at 4.0). Encourage pulmonary toilet to help respiratory status. Encourage therapy. BP responding to medications-continue. Hemoglobin stable. Patient medically stable for IRU floor activities. Hospital Course Summary Disclaimer: The visit summary below is not to be considered part of the above Progress Note.
[2017-05-11] MEDS: PRAVASTATIN 40 MG TABLET PO SCH (21:11)
[2017-05-12] MEDS: HYDROCODONE/APAP 7.5 MG/325 MG TABLET PO PRN ×2 (04:54→15:30)
[2017-05-12] MEDS: LEVOTHYROXINE 125 MCG TABLET PO SCH ×2 (04:55→08:36)
[2017-05-12] MEDS: BUMETANIDE 0.5 MG TABLET PO SCH (09:36)
[2017-05-12] MEDS: PREGABALIN 150 MG CAPSULE PO SCH ×2 (09:36→20:03)
[2017-05-12] MEDS: LOSARTAN 100 MG TABLET PO SCH (09:38)
[2017-05-12] MEDS: APIXABAN 5 MG TABLET PO SCH ×2 (09:38→20:01)
[2017-05-12] MEDS: NIFEREX FORTE 150 CAPSULE PO SCH (09:38)
[2017-05-12] MEDS: PANTOPRAZOLE 40 MG TABLET PO SCH (09:38)
[2017-05-12] MEDS: DULOXETINE 60 MG CAPSULE PO SCH ×2 (09:38→20:01)
[2017-05-12] MEDS: DENTAL PASTE DT SCH ×3 (09:39→20:03)
[2017-05-12] MEDS: TRIAMCINOLONE 0.1% DT SCH ×3 (09:39→20:03)
[2017-05-12] MEDS: CALCIUM 600 + VIT D 400 TABLET PO SCH (09:39)
--- NOTE | 2017-05-12 10:32 | IRU Progress Note ---
- Subjective/Serverity of Illness Kyung continues to improve with therapy. She is walking well. Plans to use a cane at home when she is out and about. Does not have any symptoms of urinary tract infection. Does have heart failure with reduced ejection fraction. However she has diuresed well and her weight continues to decline. Dr. Munroe did reduce her Bumex dose yesterday. It is yet to be to determined what medications she will go home on with regard to diuresis. Finally, we did do overnight oximetry. She was less than 90% O2 saturation, 37% of the time and less than 80% saturation 2% of the time. I have discussed this with the patient as well. She may well have obstructive sleep apnea. For the short-term however until that can be evaluated further, we will arrange for home oxygen therapy. I left a note for [employer] in this regard. Exam Vital Signs: Temperature 98.4 F 05/12/17 08:00 Pulse Rate 89 05/12/17 08:00 Respiratory Rate 12 05/12/17 08:00 Blood Pressure 133/76 05/12/17 08:00 Pulse Oximetry 92 05/12/17 08:00 Oxygen Delivery Method Room Air Oxygen Flow Rate 0 Height: 1.63 m Weight: 132.8 kg Body Mass Index: 56.0 - Constitutional Present: no acute distress Comments: The patient is awake, alert and oriented and in no acute distress. Pupils are equal. The neck is supple. Chest: Clear to auscultation bilaterally. Cor: RR with shannon, click nor murmur Abd: soft with normo-active bowel sounds. There are no masses, no tenderness and no guarding. Extremities: No edema is noted. Reviewed overnight oximetry in detail. Please see above discussion. She does become hypoxemic at night. - Routine HEENT Exam Head: Present: normocephalic ENT: Present: mucous membranes moist - Routine Neck Exam Present: supple - Routine Respiratory Exam Present: CTA bilaterally - Routine Cardiovascular Exam Present: RRR, S1, S2, no murmur - Routine Abdominal Exam Present: soft, normoactive bowel sounds, non distended, non tender - Routine Skin Exam Present: intact - Routine Neurological Exam Present: alert, oriented X3, CN II-XII intact - Routine Psychiatric Exam Present: normal affect, normal thought process Sepsis Assessment - Evaluation Sepsis screening result: No Definite Risk IRU A/P (1) Asthenia Current visit: No Status: Acute (2) Atrial fibrillation with RVR Current visit: No Status: Acute (3) Hypertension Qualifiers: Hypertension type: essential hypertension Qualified Code(s): I10 - Essential (primary) hypertension Current visit: Yes Status: Chronic (4) Myopathy Current visit: Yes Status: Resolved (5) Dyspnea Qualifiers: Dyspnea type: dyspnea on exertion Qualified Code(s): R06.09 - Other forms of dyspnea Current visit: Yes Status: Acute (6) HFrEF (heart failure with reduced ejection fraction) Qualifiers: Heart failure chronicity: acute on chronic Qualified Code(s): I50.23 - Acute on chronic systolic (congestive) heart failure Current visit: Yes Status: Acute DVT Prophylaxis: Eliquis Resuscitation Status: Do Not Resuscitate - Course Hospital Course: Lance Davis MD: 05/06/17 10:55 Patient states that she is stronger Her blood pressures are running too high at 160 systolic. We will restart losartan 50 mg by itself without the hydrochlorothiazide. I reviewed her laboratory studies and feel this is safe. Her atrial fibrillation rate appears to be controlled. Her appetite is still reduced but improving. 05/07/17 10:50 Has new onset dyspnea without chest pain. Dyspnea is with exercise. No cough. Denies orthopnea. Appetite is improving Transfers and mobility is improved although she does have some reduced exercise tolerance. We will check a chest x-ray and wait and make further recommendations after discussing with hospitalists. 05/10/17 09:37 Her dyspnea is improved after diuresis. Her weight is down 7 pounds. Does have heart failure with reduced ejection fraction at 4045 percent. Transfers and mobility are improved. Continues to have some reduced exercise tolerance but things are improving. Does have history of hypoxemia. Prior to dismissal we will likely need to do overnight oximetry. Plan to assess her tomorrow at team meeting. 05/11/17 11:13 She is progressing nicely with therapy. She does have easy fatigability Her heart failure with reduced ejection fraction is compensated. She will need to do overnight oximetry prior to returning home. No evidence of recurrence of UTI and her follow-up blood cultures are negative. We will reassess today at team meeting but I anticipate her going home sometime this week. - Interventions to Obtain Goals PT Treatment Plan: Balance/Proprioception, Functional Activities, Gait Training , Patient/Family Education, Therapeutic Exercise OT Treatment Plan: ADL (Basic Care), Balance Training, IADL, Pt./Family Education, Ther. Exercise for ADL
[2017-05-12] MEDS ORDERED: NEOMYCIN/POLYMYXIN/BACITRACIN OINT PACKET TP ONE (13:45)
--- NOTE | 2017-05-12 14:06 | Discharge Instructions ---
Discharge Plan - Med Rec/Dispo Referrals/Follow Up: Marlene Haque, [Family Provider] - 1 Week (Please schedule follow up apt with Dr Haque in 1 week. Check BMP at that time.) Additional Instructions: Please check BMP in [address] Gu regarding resume oncology medications. Prescriptions: New Losartan/Hctz 50/12.5 [Hyzaar 50/12.5] 1 tab PO DAILY #15 tablet Continue Duloxetine HCl [Cymbalta] 60 mg PO BID #0 Pregabalin [Lyrica] 300 mg PO BID #0 Pravastatin Sodium 40 mg PO DAILY #0 Pantoprazole Sodium [Protonix] 40 mg PO DAILY #0 Iron Ps Cmplx/Vit B12/FA [Poly-Iron 150 Forte Capsule] 1 cap PO DAILY Ergocalciferol (Vitamin D2) [Vitamin D2] 2,000 unit PO DAILY Calcium 600 + D [Caltrate + D] 1 tab PO DAILY Polyethylene Glycol 3350 [Miralax] 17 gm PO DAILY PRN PRN Reason: Constipation Acetaminophen [Tylenol] 500 mg PO Q5H PRN tablet PRN Reason: Discomfort Metoprolol Tartrate [Lopressor] 50 mg PO BIDWM tablet Hydrocodone/APAP 7.5/325 [[place] 7.5/325] 1 - 2 tab PO Q6H PRN #10 tablet PRN Reason: Pain Lidocaine 1 patch TP DAILY PRN PRN Reason: Pain Levothyroxine Sodium 125 mcg PO ACB Apixaban [Eliquis] 2.5 mg PO BID tablet No Action Aztreonam 1 gm IJ Q8HR #12 vial - Disposition 01 Discharged Home, Self-Care
[2017-05-12] MEDS: PRAVASTATIN 40 MG TABLET PO SCH (20:03)
[2017-05-13 04:36] VITALS: RESP 16; O2SAT 94
[2017-05-13] MEDS: PRAVASTATIN 40 MG TABLET PO SCH (05:27)
[2017-05-13] MEDS: LEVOTHYROXINE 125 MCG TABLET PO SCH (06:07)
[2017-05-13 08:19] VITALS: BP 166/99; PULSE 86; TEMP 97.7
[2017-05-13] MEDS: NIFEREX FORTE 150 CAPSULE PO SCH (08:49)
[2017-05-13] MEDS: APIXABAN 5 MG TABLET PO SCH (08:50)
[2017-05-13] MEDS: PREGABALIN 150 MG CAPSULE PO SCH (08:50)
[2017-05-13] MEDS: LOSARTAN 100 MG TABLET PO SCH (08:51)
[2017-05-13] MEDS: CALCIUM 600 + VIT D 400 TABLET PO SCH (08:51)
[2017-05-13] MEDS: DULOXETINE 60 MG CAPSULE PO SCH (08:52)
[2017-05-13] MEDS: BUMETANIDE 0.5 MG TABLET PO SCH (08:52)
[2017-05-13] MEDS: PANTOPRAZOLE 40 MG TABLET PO SCH (08:55)
--- NOTE | 2017-05-13 10:38 | IRU Progress Note ---
- Subjective/Serverity of Illness Ms. Morales was evaluated when she was in her room. She is doing well with therapy. She is felt to be independent at the present time. Her bowels are moving adequately. Her appetite is good. She denies any urinary tract symptoms at present. In addition, denies shortness of breath or chest pains. We discussed her blood pressure. In addition we discussed home health for physical therapy and occupational therapy. Finally, we discussed Meals on Wheels. She states that she is pleased with her progress and is anxious to get back home. Exam Vital Signs: Temperature 97.7 F 05/13/17 08:00 Pulse Rate 86 05/13/17 08:00 Respiratory Rate 16 05/13/17 08:00 Blood Pressure 166/99 H 05/13/17 08:00 Pulse Oximetry 94 05/13/17 04:00 Oxygen Delivery Method Room Air Oxygen Flow Rate 1 Height: 1.63 m Weight: 131.2 kg Body Mass Index: 56.0 - Constitutional Present: no acute distress, obese Comments: The patient is awake, alert and oriented and in no acute distress. Pupils are equal. The neck is supple. Chest: Clear to auscultation bilaterally. Cor: Irreg rhythm with no shannon, click nor murmur Abd: soft with normo-active bowel sounds. There are no masses, no tenderness and no guarding. Extremities: No edema is noted. No cyanosis is present. - Routine HEENT Exam Eye: Present: EOMI - Routine Neck Exam Present: supple - Routine Respiratory Exam Present: CTA bilaterally - Routine Cardiovascular Exam Present: no murmur, irregularly irregular - Routine Abdominal Exam Present: soft, normoactive bowel sounds, non distended, non tender - Routine Extremities Exam Present: no edema - Routine Skin Exam Absent: erythema - Routine Neurological Exam Present: alert, oriented X3, CN II-XII intact - Routine Psychiatric Exam Present: normal affect, cooperative, good insight, good judgment Results IRU - Labs Labs: Reviewed recent labs. Continues to demonstrate chronic kidney disease stage III. Creatinine however has been stable. Sepsis Assessment - Evaluation Sepsis screening result: No Definite Risk IRU A/P (1) Asthenia Current visit: No Status: Resolved Strength has improved. She is now independent and safe to take care of herself. She will require continued physical therapy and occupational therapy to adjust to her new environment however. (2) Atrial fibrillation with RVR Current visit: No Status: Acute Ventricular response is controlled. Current medications are appropriate. She will continue on Eliquis at home. (3) Hypertension Qualifiers: Hypertension type: essential hypertension Qualified Code(s): I10 - Essential (primary) hypertension Current visit: Yes Status: Chronic Blood pressure is quite variable. Most the time it seems to be well-controlled. At times it does jump up. She is on losartan/HCTZ at home and will continue on that. (4) Myopathy Current visit: Yes Status: Resolved (5) Dyspnea Qualifiers: Dyspnea type: dyspnea on exertion Qualified Code(s): R06.09 - Other forms of dyspnea Current visit: Yes Status: Resolved Her dyspnea with activity has improved significantly since the diuresis. Lungs are clear and she is able to ambulate at this time. (6) HFrEF (heart failure with reduced ejection fraction) Qualifiers: Heart failure chronicity: acute on chronic Qualified Code(s): I50.23 - Acute on chronic systolic (congestive) heart failure Current visit: Yes Status: Acute She remains on ARB as well as diuretic. She is controlled on this regimen and her heart failure appears to be compensated. DVT Prophylaxis: Eliquis Resuscitation Status: Do Not Resuscitate - Course Hospital Course: Lance Davis MD: 05/06/17 10:55 Patient states that she is stronger Her blood pressures are running too high at 160 systolic. We will restart losartan 50 mg by itself without the hydrochlorothiazide. I reviewed her laboratory studies and feel this is safe. Her atrial fibrillation rate appears to be controlled. Her appetite is still reduced but improving. 05/07/17 10:50 Has new onset dyspnea without chest pain. Dyspnea is with exercise. No cough. Denies orthopnea. Appetite is improving Transfers and mobility is improved although she does have some reduced exercise tolerance. We will check a chest x-ray and wait and make further recommendations after discussing with hospitalists. 05/10/17 09:37 Her dyspnea is improved after diuresis. Her weight is down 7 pounds. Does have heart failure with reduced ejection fraction at 4045 percent. Transfers and mobility are improved. Continues to have some reduced exercise tolerance but things are improving. Does have history of hypoxemia. Prior to dismissal we will likely need to do overnight oximetry. Plan to assess her tomorrow at team meeting. 05/11/17 11:13 She is progressing nicely with therapy. She does have easy fatigability Her heart failure with reduced ejection fraction is compensated. She will need to do overnight oximetry prior to returning home. No evidence of recurrence of UTI and her follow-up blood cultures are negative. We will reassess today at team meeting but I anticipate her going home sometime this week. 05/13/17 10:40 She has done well with therapy. She is stable and able to live safely and independently at home. She will require continued physical therapy and occupational therapy to adjust to her new environment. - Interventions to Obtain Goals PT Treatment Plan: Balance/Proprioception, Functional Activities, Gait Training , Patient/Family Education, Therapeutic Exercise OT Treatment Plan: ADL (Basic Care), Balance Training, IADL, Pt./Family Education, Ther. Exercise for ADL
--- NOTE | 2017-05-13 10:44 | Discharge Instructions ---
Discharge Plan - Med Rec/Dispo Referrals/Follow Up: Marlene Haque, DO [Family Provider] - 1 Week (Please schedule follow up apt with Dr Haque in 1 week. Check BMP at that time. Dr. Peri Haque on 05/24/17 at 1:40 pm for Hosp. follow-up. ) Additional Instructions: Please check BMP in [address] Gu regarding resume oncology medications. Prescriptions: New Losartan/Hctz 50/12.5 [Hyzaar 50/12.5] 1 tab PO DAILY #15 tablet Continue Duloxetine HCl [Cymbalta] 60 mg PO BID #0 Pregabalin [Lyrica] 300 mg PO BID #0 Pravastatin Sodium 40 mg PO DAILY #0 Pantoprazole Sodium [Protonix] 40 mg PO DAILY #0 Iron Ps Cmplx/Vit B12/FA [Poly-Iron 150 Forte Capsule] 1 cap PO DAILY Ergocalciferol (Vitamin D2) [Vitamin D2] 2,000 unit PO DAILY Calcium 600 + D [Caltrate + D] 1 tab PO DAILY Polyethylene Glycol 3350 [Miralax] 17 gm PO DAILY PRN PRN Reason: Constipation Acetaminophen [Tylenol] 500 mg PO Q5H PRN tablet PRN Reason: Discomfort Metoprolol Tartrate [Lopressor] 50 mg PO BIDWM tablet Hydrocodone/APAP 7.5/325 [[place] 7.5/325] 1 - 2 tab PO Q6H PRN #10 tablet PRN Reason: Pain Lidocaine 1 patch TP DAILY PRN PRN Reason: Pain Levothyroxine Sodium 125 mcg PO ACB Apixaban [Eliquis] 2.5 mg PO BID tablet No Action Aztreonam 1 gm IJ Q8HR #12 vial Discharge Instructions/Outpatient Orders: Final Provider Discharge Instructions Location: Determined By Patient - Disposition 01 Discharged Home, Self-Care
--- NOTE | 2017-05-13 10:49 | Discharge Summary ---
Discharge Information Date of admission: 05/04/17 14:10 Attending Physician: Lance Davis MD Primary care physician: Marlene Haque, DO Consults: 05/04/17 15:55 Physician Consult [CONS] Routine Consulting Provider: Mel Sheets Reason For Exam: Medical management Ordering Provider has Notified Family Dinner Service Specialist: No - Discharge Diagnosis (1) Asthenia Status: Resolved (2) Atrial fibrillation with RVR Status: Acute (3) Hypertension Qualifiers: Hypertension type: essential hypertension Qualified Code(s): I10 - Essential (primary) hypertension Status: Chronic (4) Myopathy Status: Resolved (5) Dyspnea Qualifiers: Dyspnea type: dyspnea on exertion Qualified Code(s): R06.09 - Other forms of dyspnea Status: Resolved (6) HFrEF (heart failure with reduced ejection fraction) Qualifiers: Heart failure chronicity: acute on chronic Qualified Code(s): I50.23 - Acute on chronic systolic (congestive) heart failure Status: Acute (7) CKD (chronic kidney disease) stage 3, GFR 30-59 ml/min Status: Chronic - Laboratory Labs: 05/11/17 04:04 05/12/17 04:42 - Microbiology Microbiology 05/06/17 04:42 Peripheral/Iv Start Blood Culture - Final No Growth After 5 Days 05/06/17 04:42 Peripheral/Iv Start Blood Culture - Final No Growth After 5 Days History of Present Illness HPI: 05/13/17 10:45 Ms. Morales was initially admitted to acute care with a urinary tract infection with sepsis. Also had atrial fibrillation with rapid ventricular response. She was treated appropriately on the acute side but felt to be too weak to go home. She had developed disuse myopathy and was very weak in her legs. Other medical issues included heart failure with reduced ejection fraction , essential hypertension which was higher than desired. For these reasons she was felt to be a good candidate for acute inpatient rehabilitation so that she may return to her home and avoid another admission. Hospital Course This is a general summary of the patient's hospital course. For more details refer to the complete medical record. Ms. Morales was omitted to acute care with urinary tract infection with bacteremia and severe sepsis. She had a true fibrillation with rapid ventricular response. Patient was treated with IV fluids and intravenous antibiotics. At the conclusion of that care however she continued to be quite weak and had developed disuse myopathy with weakness in her lower extremities. For this reason she was felt to be a good candidate for acute rehabilitation so that she can get back on her feet and get back home. Patient was admitted to the acute rehabilitation floor. She was continued on intravenous aztreonam for her Escherichia coli UTI and bacteremia. She was followed by the hospitalist service as well. She required medical management of her UTI, hypertension, heart failure with reduced ejection fraction and her atrial fibrillation with rapid ventricular response. She continued to have episodes of rapid ventricular response when she was ambulatory but these improved with time. She was seen by a physician at least 3 days weekly. She was also given additional Bumex for diuresis. That helped her dyspnea significantly and she was able to diurese well with that. Blood pressure medications were adjusted as well. With regard to therapy, she was seen by physical therapy and occupational therapy, each for 90 minutes per day, 5 days weekly. With regard to occupational therapy she required contact-guard assist for transfers initially. This improved to modified independent. Barriers to discharge included poor safety awareness and decreased endurance with muscle weakness. This improved during hospitalization. With regard to physical therapy she was maximal assist for ambulation initially. She had poor exercise tolerance and was dyspneic. This improved to modified independent to independent ambulation with a walker. At the time of dismissal she is felt to be stable for dismissal to her home. We will involve home health physical therapy and occupational therapy because of the new environment. In addition, she was noted to have nocturnal hypoxemia based on overnight oximetry. This is felt to be improved with the use of 1 L/m by nasal cannula at night. This is also arranged for her at home. We did not investigate the possibility of obstructive sleep apnea but that would be another possibility. I told her to discuss that with her personal physician as an outpatient. She has improved with regard to occupational therapy and physical therapy. She has improved with regard to her medical illnesses including heart failure with reduced ejection fraction which is now compensated, chronic kidney disease, now with a stable creatinine as well as her blood pressure being more well controlled. Remains in atrial fibrillation chronically. She is on Eliquis and metoprolol in this regard. Hospital course: 05/03/19- Inital Consult Agree with admission to inpatient rehabilitation under the care of Dr. Davis for ongoing strengthening. Patient has general fatigue and weakness secondary to the severity of her recent illness. She will continue on Aztreonam IV every 8 hours for treatment of bacteremia. Antibiotic therapy started on 04/29. She will likely require 10-14 days of treatment. Given positive blood cultures. Will recheck blood cultures tomorrow 05/06. Continue to monitor telemetry. Patient remains in atrial fibrillation which is chronic for her. Continue on metoprolol 50 twice a day as she is currently rate controlled. Continue on chronic anticoagulation. Eliquis was 2.5 milligrams twice a day. Will continue to follow routine blood counts given anemia. Likely related to an acute sepsis, as well as history of breast cancer SHELIA- creatinine does continue to trend down, 1.3 today. Lasix does remain on hold. Will continue to monitor for evidence of edema or fluid overload. Will likely be able to resume Lasix at time of discharge. Overall patient appears to be medically stable. Protonix daily for GI protection. Eliquis and SCDs for DVT prophylaxis The hospitalist services will continue to follow patient medical manage during their stay on the rehabilitation unit. At time of discharge medical care will return to primary care provider Dr Haque 05/06/17 Patient has continued to have episodes of hypertension. Did review her previous home medication list. Place patient back on her losartan/HCTZ 50/12.5 milligrams daily. Will continue to utilize metoprolol 50 mg twice a day. Continue with when necessary labetalol 10 milligrams IV as needed for sustained systolic blood pressure greater than 160. Nursing instruction given to hold this medication if pulse is less than 60. Repeat blood cultures were obtained on 05/06. Will continue on Aztreonam IV. Was started on 04/29. Will discuss further reagarding length of treatment with attending. Can likely change at time of discharge. Apthous ulcers noted to oral mucosa. Will initate Triamcinolone dental past TID. Recehck [facility] tomorrow to follow renal function Continue to encourage work with PT and OT for ongoing strengthening 05/07/17 Regarding Increased shortness of breath accompanied with feeling of extremity swelling. Will get patient a one-time dose of Lasix 20 milligrams IV. Chest Xray was obtained and did revel some possible lower lobe atelectasis. She has not had any episodes of hypoxia, fever or leukocytosis that would reveal an acute infectious process. Blood pressures do continue to be elevated. She was placed back on her home dose of Losartan/HCTZ 50/12.5 milligrams daily, this started this morning. We will continue to utilize metoprolol 50 mg twice a day. Continue with when necessary labetalol 10 milligrams IV as needed for sustained systolic blood pressure greater than 160. Nursing instruction given to hold this medication if pulse is less than 60. She does constinue on Aztreonam IV for bacteremia. This was started on 04/29. Will discuss further reagarding length of treatment with attending. Can likely change at time of discharge. Apthous ulcers noted to oral mucosa contine Triamcinolone dental past TID. Continue to encourage work with PT and OT for ongoing strengthening. 05/08/17 16:44 *E.Coli UTI with bacteremia- Aztreonam D#10. Will DC after today's doses and monitor. If fever, we could consider using Amoxil. F/U BC done on 05/06 were negative. *Atrial Fib with RVR *HFrEF, Class III; Acute respiratory failure; Uncontrolled HTN; SHELIA HR is fairly well controlled on Metoprolol 50mg BID. We may need to increase beta-sola dosing. We need to aggressively diurese- she is up about 20 lbs still and appears fluid overloaded. Will add BID Bumex. Stop HCTZ. BP is running quite high- finally some improvement post clonidine. Increase Losartan to 100mg Q day. Monitor renal function and KCl with increase in ARB, diuresis. Change IV beta-sola to PRN clonidine for now. Pt. remains on Eliquis- we discussed some cost savings options for her medications. *Peripheral neuropathy- Continue Cymbalta/Lyrica *Anemia, Hx. of GI ulcer- Need to closely monitor on the Eliquis. Continue PO PPI for GI protection. Assess B12 and Folate given peripheral neuropathy sx. Diurese. 05/11/17 15:44 Escherichia coli bacteremia and UTI -Aztreonam course completed after 10 days. -afebrile; WBC normal HFrEF -decrease Bumex to 0.5 mg daily -weight trending down (admit on 04/29/17 was 136.5 kg; today 133 kg) -CO2 increased slightly (32 yesterday; 31 today) -used to take HCTZ; will need to determine which diuretic to DC her on; if CO2 continues to rise will likely resume HCTZ and stop Bumex HTN -improving -Losartan; Metoprolol; Bumex; Clonidine PRN Chronic A-fib -rate controlled on BB -continue Eliquis (monitor for bleeding - hx of GI ulcer) Lab F/U - B12 and folate were normal Time spent with patient: 25 - 35 minutes DVT Prophylaxis: Eliquis Discharge Plan - Med Rec/Dispo Referrals/Follow Up: Marlene Haque, [Family Provider] - 1 Week (Please schedule follow up apt with Dr Haque in 1 week. Check BMP at that time. Dr. Peri Haque on 05/24/17 at 1:40 pm for Hosp. follow-up. ) Additional Instructions: Please check BMP in 1 week Please talk with Dr Gu regarding resume oncology medications. Prescriptions: New Losartan/Hctz 50/12.5 [Hyzaar 50/12.5] 1 tab PO DAILY #15 tablet Continue Duloxetine HCl [Cymbalta] 60 mg PO BID #0 Pregabalin [Lyrica] 300 mg PO BID #0 Pravastatin Sodium 40 mg PO DAILY #0 Pantoprazole Sodium [Protonix] 40 mg PO DAILY #0 Iron Ps Cmplx/Vit B12/FA [Poly-Iron 150 Forte Capsule] 1 cap PO DAILY Ergocalciferol (Vitamin D2) [Vitamin D2] 2,000 unit PO DAILY Calcium 600 + D [Caltrate + D] 1 tab PO DAILY Polyethylene Glycol 3350 [Miralax] 17 gm PO DAILY PRN PRN Reason: Constipation Acetaminophen [Tylenol] 500 mg PO Q5H PRN tablet PRN Reason: Discomfort Metoprolol Tartrate [Lopressor] 50 mg PO BIDWM tablet Hydrocodone/APAP 7.5/325 [[place] 7.5/325] 1 - 2 tab PO Q6H PRN #10 tablet PRN Reason: Pain Lidocaine 1 patch TP DAILY PRN PRN Reason: Pain Levothyroxine Sodium 125 mcg PO ACB Apixaban [Eliquis] 2.5 mg PO BID tablet No Action Aztreonam 1 gm IJ Q8HR #12 vial Discharge Instructions/Outpatient Orders: Final Provider Discharge Instructions Location: Determined By Patient - Disposition 01 Discharged Home, Self-Care
[2017-05-13] MEDS: TRIAMCINOLONE 0.1% DT SCH (12:54)
[2017-05-13] MEDS: HYDROCODONE/APAP 7.5 MG/325 MG TABLET PO PRN (12:54)
[2017-05-13] MEDS: DENTAL PASTE DT SCH (12:54)
== END 2017-05-13 14:10 | disposition home health service (06) | DRG 91 ==
PROVIDERS: ADMIT Internal Medicine; ATTEND Internal Medicine